=== PATIENT | female | born 1945 | race Caucasian/White ===

== ENCOUNTER 2018-08-14 06:59 | Observation (INO) ==
[2018-08-14] MEDS ORDERED: methylPREDNISolone 125 MG/2 ML VIAL IVP ONE (07:34)
[2018-08-14] MEDS ORDERED: Ipratropium/Albuterol Neb 3 ML IH ONE ×2 (07:34→08:00)
[2018-08-14 07:36] LABS: Basophils # 0.1 K/mcL (0.0-0.2); Eosinophils # 0.9 K/mcL (0.0-0.6); Eosinophils % 7.4 %; Hematocrit 42.6 % (35.3-44.9); Hemoglobin 14.6 g/dL (11.5-15.4); Immature Granulocytes % 0.3 % (0-4); Lymphocytes # 1.8 K/mcL (0.6-4.6); Lymphocytes % 15.8 %; Mean Corpuscular HGB Conc 34.3 g/dL (31.6-35.5); Mean Corpuscular Hemoglobin 31.9 pg (28.0-33.3); Mean Corpuscular Volume 93.2 fL (83.0-100.0); Mean Platelet Volume 9.1 fL (9.4-12.4); Monocytes # 0.7 K/mcL (0.0-1.3); Monocytes % 5.7 %; Platelet Count 332 K/mcL (140-400); Red Blood Count 4.57 M/mcL (3.82-4.97); Red Cell Distribution Width 12.7 % (11.5-14.5); Segmented Neutrophils % 69.8 %
--- NOTE | 2018-08-14 07:46 | Emergency Department Note ---
Disposition Clinical Impression: Acute exacerbation of chronic obstructive airways disease Disposition: Admitted As Inpatient Condition: Fair Referrals: Yahaira Hare CNP [Primary Care Provider] - Forms: ED Satisfaction Letter SOB HPI - General Chief Complaint: ED Shortness of Breath/Dyspnea Stated Complaint: sob Time Seen by Provider: 08/14/18 07:23 Source: patient Limitations: no limitations Nursing Notes Reviewed: Yes Vital Signs Reviewed: Yes - History of Present Illness woman with a history of COPD and continued cigarette smoking with SOB for a week worse since last night. she says that she was given an antibiotic and prednisone last week for a cough but was not very SOB at that time. no pedal edema or chest pain. uses inhalers but does not have oxygen or nebs at home. no fever but has felt chills. No chest pain or calf pain or swelling. cough has been non productive, no hemoptysis. she finished the prednisone a few days ago. Pt Subjective Complaint: shortness of breath Onset (ago): day(s) (2) Severity: moderate Consistency/Duration: constant Known history of: COPD Treatment prior to arrival: bronchodilator - Related Data Home Medications Medication Instructions Recorded Confirmed Aspirin 81 mg PO DAILY 11/17/15 08/14/18 Lisinopril [Zestril] 20 mg PO DAILY 11/17/15 08/14/18 Allergies Allergy/AdvReac Type Severity Reaction Status Date / Time No Known Allergies Allergy Verified 08/14/18 07:19 All systems ED: reviewed and negative except as stated. Past Medical History - Past Medical History Medical history: Reports: COPD, hypertension Psychiatric history: Reports: anxiety [employer] history: Reports: no [employer] history - Social History Smoking Status: Current every day smoker Smokeless Tobacco Status: No Alcohol use: Reports: none Drug use: Reports: none Physical Exam - General Limitations: no limitations General appearance: alert, in no apparent distress - Head Head exam: atraumatic, normocephalic - Eye Eye exam: Present: normal appearance, PERRL, EOMI - ENT ENT exam: normal exam, normal oropharynx, mucous membranes moist - Neck Neck exam: Present: normal inspection, full ROM. Absent: lymphadenopathy - Chest Chest inspection: Present: normal inspection, symmetric chest wall rise - Respiratory Respiratory exam: Present: wheezes, other (diminished breath sounds bilaterally with expiratory prolongation and bilateral wheezes) - Cardiovascular Cardiovascular exam: Present: regular rate, normal heart sounds - Abdominal Exam Abdominal exam: Present: soft, Non-Tender, normal bowel sounds - Extremities Exam Extremities exam: Present: normal inspection, full ROM, normal capillary refill. Absent: tenderness, pedal edema, calf tenderness - Expanded Lower Extremity Exam Neurovascular/Tendon exam: Present: normal capillary refill. Absent: pulse deficit - Back Exam Back exam: Present: normal inspection, full ROM - Neurological Exam Neurological exam: Present: alert, oriented X3 - Psychiatric Psychiatric exam: Present: normal affect, normal mood - Skin Skin exam: Present: warm, dry, normal color Course - Reevaluation(s) Reevaluation #1: has not gotten a lot better after 2 nebs and solu-medrol. she agrees to stay in the hospital. I discussed with Dr. Casas who accepts. Vital Signs Temperature 97.2 F L 08/14/18 07:12 Pulse Rate 88 08/14/18 07:12 Respiratory Rate 18 08/14/18 07:12 Blood Pressure 159/96 08/14/18 07:12 O2 Sat by Pulse Oximetry 93 08/14/18 07:12 Temperature 97.2 F L 08/14/18 07:12 Pulse Rate 88 08/14/18 07:12 Respiratory Rate 18 08/14/18 07:12 Blood Pressure 159/96 08/14/18 07:12 O2 Sat by Pulse Oximetry 93 08/14/18 07:12 Oxygen Delivery Oxygen Delivery Room Air Shortness of Breath/Dyspnea - Differential Diagnosis Likely: acute exacerbation of chronic obstructive airways disease, congestive heart failure, pneumonia, pulmonary embolism - Medical Records Medical records reviewed: Yes I reviewed the patient's medical records. - Lab Data Lab results reviewed: Yes I reviewed the patient's lab results. Result diagrams: 08/14/18 07:30 Lab Results 08/14/18 Range/Units 07:30 WBC 11.5 H (4.3-11.1) K/mcL RBC 4.57 (3.82-4.97) M/mcL Hgb 14.6 (11.5-15.4) g/dL Hct 42.6 (35.3-44.9) % MCV 93.2 (83.0-100.0) fL MCH 31.9 (28.0-33.3) pg MCHC 34.3 (31.6-35.5) g/dL RDW 12.7 (11.5-14.5) % Plt Count 332 (140-400) K/mcL MPV 9.1 L (9.4-12.4) fL Immature Gran % 0.3 (0-4) % Seg Neutrophils % 69.8 % Lymphocytes % 15.8 % Monocytes % 5.7 % Eosinophils % 7.4 % Basophils % 1.0 % Neutrophils # 8.0 (1.6-8.9) K/mcL Lymphocytes # 1.8 (0.6-4.6) K/mcL Monocytes # 0.7 (0.0-1.3) K/mcL Eosinophils # 0.9 H (0.0-0.6) K/mcL Basophils # 0.1 (0.0-0.2) K/mcL - Radiology Data Radiology results reviewed: Yes I reviewed the patient's radiology results. - EKG Data EKG attestation: Yes I reviewed and interpreted this EKG. EKG shows normal: Reports: sinus rhythm Rate: Reports: normal (90) Rhythm: Reports: NSR [place]/QRS: Reports: normal When compared to previous EKG there are: previous EKG unavailable Interpretation: Reports: no acute changes, normal EKG
[2018-08-14 07:54] LABS: BUN/Creatinine Ratio 14 (6-26); Blood Urea Nitrogen 8 mg/dL (8-23); Calcium 10.2 mg/dL (8.6-10.3); Carbon Dioxide 26 mEq/L (23-29); Chloride 99 mEq/L (98-107); Glucose 119 mg/dL (70-105); Osmolality,Calculated 275 (280-300); Sodium 133 mEq/L (136-145); eGFR For Non-African Americans > 60 (> 60)
[2018-08-14 07:56] LABS: Troponin I < 0.03 ng/mL (< 0.04)
[2018-08-14] MEDS ORDERED: Ibuprofen 600 MG TABLET PO ONE (08:01)
[2018-08-14] MEDS ORDERED: Ipratropium/Albuterol Neb 3 ML ONE (08:02)
[2018-08-14] MEDS ORDERED: MethylPREDNISolone 40 MG/ML VIAL IVP SCH (08:45)
[2018-08-14] MEDS ORDERED: *HR* LORazepam 1 MG TABLET PO ONE (08:56)
[2018-08-14] MEDS ORDERED: Ipratropium/Albuterol Neb 3 ML IH SCH ×2 (09:00→11:00)
[2018-08-14] MEDS ORDERED: Naloxone 0.4 MG/ML INJ IVP PRN (09:50)
[2018-08-14] MEDS ORDERED: Ibuprofen 400 MG TABLET PO PRN (09:50)
--- NOTE | 2018-08-14 11:22 | Internal Med History&Physical ---
Date of Encounter: 08/14/18 Time of Encounter: 10:02 Assessment and Plan (1) Acute exacerbation of chronic obstructive airways disease Current visit: Yes Status: Acute Continue antibiotic and steroids. Continue inhaled meds and oxygen per nasal cannula as needed. Will monitor. Maintaining oxygen levels 96% at 2 L per nasal cannula. (2) Hypertension Current visit: Yes Status: Acute Controlled with current medication. Monitor blood pressure. Qualifiers: Hypertension type: essential hypertension Qualified Code(s): I10 - E ssential (primary) hypertension Internal Medicine - H&P: HPI Admitted From: Emergency Dept Plans for Post Hospital Care: Home History of present illness: Ms. Blakely is a 73 year old female admitted to inpatient from the emergency room after presenting for a one-week history of shortness of breath. Was treated a week prior for possible pneumonia. Had antibiotics and prednisone which she completed the course. Kimberly better for a couple days. Then based skin to feel increased shortness of breath again. Patient is a current smoker and history of COPD exacerbation and hypertension. Patient denies fever but states she has chills occasionally. Denies nausea vomiting diarrhea or chest pain. Maintaini ng oxygen level at 96% on 2 L of oxygen. Does not wear oxygen at home. Does not have nebulizers at home but has inhalers. Past Med Surg Social Fam HX - Past Medical History Medical history: COPD, hypertension Psychiatric history: anxiety - Social History Smoking Status: Current every day smoker Smokeless Tobacco Status: No Alcohol use: none Drug use: none Internal Medicine - H&P: Meds Aspirin 81 mg PO DAILY 11/17/15 [History] Lisinopril [Zestril] 20 mg PO DAILY 11/17/15 [History] Allergy/AdvReac Type Severity Reaction Status Date / Time No Known Allergies Allergy Verified 08/14/18 07:19 All Systems PM: A 10-system review of systems was performed and is negative for pertinent fi ndings except as documented above in the HPI. - Constitutional Constitutional: no chills, no fever(s), no night sweats - EENT Eyes: no change in vision, no discharge, no pain, no photophobia Ears: no ear discharge, no ear pain, no tinnitus Nose, mouth and throat: no dysphagia, no nasal discharge, no neck pain, no sore throat - Cardiovascular Cardiovascular ROS IM: no chest pain, no diaphoresis, no dyspnea, no lightheadedness, no palpitations, no syncope - Respiratory Respiratory: no cough, no dyspnea, no wheezing, no excessive phlegm production - Gastrointestinal Gastrointestinal: no abdominal pain, no diarrhea, no hematemesis, no hematochezia, no melena, no nausea, no vomiting - Genitourinary Genitourinary: no change in urinary stream, no dysuria, no flank pain, no hematuria - Musculoskeletal Musculoskeletal ROS IM: no numbness, no tingling - Integumentary Integumentary IM: no rash, no unusual bruising - Neurological Neurological ROS: no confusion, no convulsions, no focal weakness, no numbness, no tingling, no tremor(s) - Hematologic/Lymphatic Hematologic/Lymphatic: no easy bruising - Constitutional Vitals: Temp Pulse Resp BP Pulse Ox 97.2 F L 88 16 155/86 93 08/14/18 07:12 08/14/18 07:12 08/14/18 09:32 08/14/18 09:32 08/14/18 07:12 General appearance: Present: cooperative, A&O X 3, pleasant, no acute distress, answers questions appropriately - Head Head exam: Present: atraumatic, normocephalic - Eye Eye exam: Present: PERRL, conjuntiva pink, sclera anicteric Pupils: Present: PERRL - Neck Neck exam general surgery: Present: supple, trachea midline. Absent: lymphadenopathy - Respiratory Respiratory exam: Present: CTAB. Absent: accessory muscle use, rales, rhonchi, wheezes Additional comments: Scattered rhonchi and wheezes throughout. - Cardiovascular Cardiovascular exam: Present: RRR, +S1, +S2. Absent: diastolic murmur, gallop, rubs, systolic murmur - GI/Abdominal GI/Abdominal exam: Present: normal bowel sounds, soft, no peritoneal signs. Absent: distended, tenderness - Extremities Exam Extremities exam: Present: warm, radial pulses palpable and symmetrical. Absent: calf tenderness, cyanotic, pedal edema - Neurological Exam Neurological exam: Present: CN II-XII intact, oriented X3, no focal deficits. Absent: pronater drift, facial droop, speech deficit - Skin Skin exam: Present: dry, intact Internal Med - H&P Results - Labs CBC & Chem 7: 08/14/18 07:30 08/14/18 07:30 Labs: Short CBC 08/14/18 Range/Units 07:30 WBC 11.5 H (4.3-11.1) K/mcL Hgb 14.6 (11.5-15.4) g/dL Hct 42.6 (35.3-44.9) % Plt Count 332 (140-400) K/mcL Neutrophils # 8.0 (1.6-8.9) K/mcL BMP 08/14/18 07:30 Sodium 133 L Potassium 4.0 Chloride 99 Carbon Dioxide 26 BUN 8 Creatinine 0.58 L Glucose 119 H Calcium 10.2 Cardiac Enzymes 08/14/18 Range/Units 07:30 Troponin I < 0.03 (< 0.04) ng/mL - Impressions ITS Impressions Chest X-Ray 08/14/18 07:20 IMPRESSION: COPD with no acute pneumonia. D/ / 08/14/2018 09:04:22 Ha Phillips MD / Esmer [place] Interpreting Provider: Ha Phillips MD
[2018-08-14] MEDS: traMADol 50 MG TABLET PO PRN ×2 (11:29→21:07)
[2018-08-14] MEDS: Aspirin 81 MG TAB.CHEW PO SCH (11:29)
[2018-08-14] MEDS: Lisinopril 20 MG TABLET PO SCH (11:30)
[2018-08-14] MEDS: cefTRIAXone 1,000 MG in Water for inj. (sterile) 20 ML 10 ML IVP SCH (11:30)
[2018-08-14] MEDS: Ipratropium/Albuterol Neb 3 ML IH SCH ×3 (13:35→21:06)
[2018-08-14] MEDS: MethylPREDNISolone 40 MG/ML VIAL IVP SCH ×2 (15:22→21:07)
[2018-08-14] MEDS: Gabapentin 300 MG CAPSULE PO SCH (21:08)
[2018-08-14] MEDS: Melatonin 3 MG TABLET PO PRN (21:08)
[2018-08-15] MEDS: Ipratropium/Albuterol Neb 3 ML IH SCH ×6 (00:17→21:52)
[2018-08-15] MEDS: MethylPREDNISolone 40 MG/ML VIAL IVP SCH ×4 (02:48→21:52)
[2018-08-15] MEDS: *HR* Enoxaparin 40 MG/0.4 ML SYRINGE SQ SCH (05:46)
[2018-08-15 05:55] LABS: Hematocrit 36.9 % (35.3-44.9); Mean Corpuscular HGB Conc 34.4 g/dL (31.6-35.5); Mean Corpuscular Hemoglobin 32.2 pg (28.0-33.3); Mean Corpuscular Volume 93.4 fL (83.0-100.0); Mean Platelet Volume 9.3 fL (9.4-12.4); Platelet Count 299 K/mcL (140-400); Red Blood Count 3.95 M/mcL (3.82-4.97); Red Cell Distribution Width 12.8 % (11.5-14.5)
[2018-08-15 06:48] LABS: BUN/Creatinine Ratio 15 (6-26); Blood Urea Nitrogen 9 mg/dL (8-23); Calcium 10.1 mg/dL (8.6-10.3); Carbon Dioxide 25 mEq/L (23-29); Chloride 97 mEq/L (98-107); Glucose 212 mg/dL (70-105); Osmolality,Calculated 275 (280-300); Sodium 130 mEq/L (136-145); eGFR For Non-African Americans > 60 (> 60)
[2018-08-15 06:51] LABS: Hemoglobin 12.7 g/dL (11.5-15.4)
[2018-08-15] MEDS: cefTRIAXone 1,000 MG in Water for inj. (sterile) 20 ML 10 ML IVP SCH (09:50)
[2018-08-15] MEDS: Lisinopril 20 MG TABLET PO SCH (09:51)
[2018-08-15] MEDS: traMADol 50 MG TABLET PO PRN ×2 (09:51→21:40)
[2018-08-15] MEDS: Aspirin 81 MG TAB.CHEW PO SCH (09:51)
[2018-08-15] MEDS: Gabapentin 300 MG CAPSULE PO SCH ×3 (09:51→21:40)
--- NOTE | 2018-08-15 10:15 | Internal Med Progress Note ---
Addendum entered and electronically signed by Freedom Casas DO 08/15/18 11:36: I have personally performed a face to face evaluation on this patient. I have reviewed and agree with the care plan. History and Exam by me shows: Original Note: Date of Encounter: 08/15/18 Time of Encounter: 10:22 - Assessment and plan (1) Acute exacerbation of chronic obstructive airways disease Current Visit: Yes Status: Acute Assessment and plan: Patient admitted with exacerbation of COPD. Patient currently states that her breathing effort has improved overnight after a series of nebulizer treatments and being started on cortical steroids. Patient currently receiving Rocephin. Currently remains afebrile with no productive cough. Patient states that she does have phlegm that she has difficulty moving and will be started on Mucinex. Chest x-ray on admission showed no infectious process. Noted continue slight wheeze to upper oneil. Patient denies any dyspnea with minimal exertion while ambulating in room. Patient states she continues to smoke at home in response to anxiety. Smoking cessation was discussed at length with patient relating difficulty maintaining her household due to poor support. We will discuss patient with Dr. Casas and with social service. Discuss changing patient's current cortical steroids and antibiotics to oral. Will start patient back on her albuterol rescue inhaler (2) Leukocytosis Current Visit: Yes Status: Acute Assessment and plan: Patient noted to have elevated WBC count to 22 after being started on cortical steroids and also noted slight increase in glucose. Afebrile and denies any fever or chills. Chest x-ray showed no infectious process. No productive cough noted. Leukocytosis likely secondary to cortical steroids and will continue with current plan of care. Patient currently on Rocephin Qualifiers: Leukocytosis type: unspecified Qualified Code(s): D72.829 - Elevated white blood cell count, unspecified (3) Hypertension Current Visit: Yes Status: Chronic Assessment and plan: Vital signs have been stable since she was then admitted. We will continue with current medications. Qualifiers: Hypertension type: essential hypertension Qualified Code(s): I10 - Essential (primary) hypertension - Time Spent With Patient less than 15 minutes - Subjective Interval history: Patient currently appears relaxed and states that her effort of breathing has improved greatly overnight. Patient was observed ambulating in room by staff. Denied any dyspnea on slight exertion. Patient requesting Mucinex, stating that she has had difficulty moving phlegm. Denies any fever or chills. Patient did relate issues at home stating she expresses increased anxiety due to difficulty maintaining her household. Patient with complaints of poor support from and states that she believes this increases her anxiety which leads to her need for smoking. Smoking cessation was discussed at length. - Constitutional Vitals: Temp Pulse Resp BP Pulse Ox 98.0 F 77 24 105/62 97 08/15/18 07:00 08/15/18 07:00 08/15/18 09:18 08/15/18 07:00 08/15/18 09:18 General appearance: Present: cooperative, A&O X 3, pleasant, no acute distress, answers questions appropriately - Head Head exam: Present: atraumatic, normocephalic - Eye Eye exam: Present: PERRL, conjuntiva pink, sclera anicteric Pupils: Present: PERRL - Neck Neck exam general surgery: Present: supple, trachea midline. Absent: lymphadenopathy - Respiratory Respiratory exam: Present: CTAB, wheezes. Absent: accessory muscle use, rales, rhonchi Additional comments: Patient with very slight expiratory wheeze heard to upper oneil. Patient with excellent aeration to bases at this time. Respiratory effort appears relaxed at 20/m. Noted scoliosis. - Cardiovascular Cardiovascular exam: Present: RRR, +S1, +S2. Absent: diastolic murmur, gallop, rubs, systolic murmur - GI/Abdominal GI/Abdominal exam: Present: normal bowel sounds, soft, no peritoneal signs. Absent: distended, tenderness - Extremities Exam Extremities exam: Present: warm, radial pulses palpable and symmetrical. Absent: calf tenderness, cyanotic, pedal edema - Neurological Exam Neurological exam: Present: CN II-XII intact, oriented X3, no focal deficits. Absent: pronater drift, facial droop, speech deficit - Skin Skin exam: Present: dry, intact Internal Medicine: Result - Labs CBC & Chem 7: 08/15/18 05:40 08/15/18 05:40 Labs: Short CBC 08/15/18 Range/Units 05:40 WBC 22.1 H D (4.3-11.1) K/mcL Hgb 12.7 D (11.5-15.4) g/dL Hct 36.9 (35.3-44.9) % Plt Count 299 (140-400) K/mcL BMP 08/15/18 05:40 Sodium 130 L Potassium 5.0 Chloride 97 L Carbon Dioxide 25 BUN 9 Creatinine 0.62 Glucose 212 H Calcium 10.1 Consult Discharge Plan - Plan Referrals: Yahaira Hare, ELENO [Primary Care Provider] -
[2018-08-15] MEDS ORDERED: Isovue-370 500 ML INFUS..BTL IV ONE (13:52)
[2018-08-15] MEDS ORDERED: ISOVUE-370 100 ML INFUS..BTL IVP ONE (14:35)
[2018-08-15] MEDS: Melatonin 3 MG TABLET PO PRN (21:40)
[2018-08-16] MEDS: Ipratropium/Albuterol Neb 3 ML IH SCH ×4 (03:04→11:56)
[2018-08-16] MEDS: MethylPREDNISolone 40 MG/ML VIAL IVP SCH ×2 (04:31→09:14)
[2018-08-16] MEDS: *HR* Enoxaparin 40 MG/0.4 ML SYRINGE SQ SCH (04:46)
[2018-08-16 07:28] VITALS: BP 129/65
[2018-08-16] MEDS: cefTRIAXone 1,000 MG in Water for inj. (sterile) 20 ML 10 ML IVP SCH (09:14)
[2018-08-16] MEDS: Aspirin 81 MG TAB.CHEW PO SCH (09:15)
[2018-08-16] MEDS: Lisinopril 20 MG TABLET PO SCH (09:15)
[2018-08-16] MEDS: Gabapentin 300 MG CAPSULE PO SCH (09:15)
[2018-08-16] MEDS: traMADol 50 MG TABLET PO PRN (09:47)
--- NOTE | 2018-08-16 10:55 | Discharge Summary ---
Date of Encounter: 08/16/18 Time of Encounter: 10:23 - Discharge Diagnosis (1) Acute exacerbation of chronic obstructive airways disease Priority: Primary Status: Acute Comments: Patient appears relaxed this morning and states that her breathing has greatly improved since her admission. Patient's initial chest x-ray showed no acute chest process. Patient had a CAT scan of the chest performed which showed possible acute bronchiolitis but otherwise was nonacute. Patient had PFTs that were performed with results pending. Patient has continued on Rocephin which will be converted to Levaquin orally for 7 days. Patient continues on Solu- Medrol which will be converted to oral prednisone for 5 days. Patient is being discharged home with recommendations to follow-up with PCP in one week. (2) Leukocytosis Priority: Secondary Status: Acute Comments: Patient had elevated WBC count to 22 after starting on cortical steroids. Patient has remained afebrile. CT scan shows possible mild bronchiolitis. Patient continues on antibiotics. We will continue to follow up with PCP. Qualifiers: Leukocytosis type: unspecified Qualified Code(s): D72.829 - Elevated white blood cell count, unspecified (3) Hypertension Priority: Secondary Status: Chronic Comments: Vital signs remained stable during her stay at this facility. Patient is continue on current home medications and follow-up with PCP Qualifiers: Hypertension type: essential hypertension Qualified Code(s): I10 - Essential (primary) hypertension Hospital course: Ms. Blakely is a 73 year old female who was admitted to the emergency department 2 days ago with exacerbation of COPD. Patient complained of dyspnea with minimal productive cough. Patient was afebrile. Patient was admitted to this facility and received bronchodilators, antibiotics and corticosteroids. Patient showed a improvement over the next 24-48 hours, stating that her dyspnea had resolved. Remained afebrile with no productive cough. Patient was observed ambulating in halls without assistance. Patient had CAT scan with the following results: CT/CT chest w con IMPRESSION: Mid and lower lung predominant tree-in-bud opacities with small airway mucoid impaction is most suspicious for (chronic recurrent) aspiration sequela given tracheobronchial secretions and prior comparison exam findings. No consolidative airspace disease. Mild upper lung predominant centrilobular ground-glass nodularity is suspicious for respiratory bronchiolitis in a smoker. Patient also had a PFT with current results pending. Patient had stated no establishment with [facility] and has a PCP who manages her medications. Patient will be discharged with oral Levaquin for 7 days and prednisone for 5 days. Remains afebrile on day of discharge. Patient instructed to follow-up with PCP in 7 days. Patient given instructions on smoking cessation Discharge discussed with: patient Time spent discussing smoking cessation with patient: 3 to 10 minutes - Time Spent with Patient Total time spent providing and/or coordinating discharge services: Less than 30 minutes - Discharge Medications Home Medications: Aspirin 81 mg PO DAILY 11/17/15 [History] Lisinopril [Zestril] 20 mg PO DAILY 11/17/15 [History] Allergies/Adverse Reactions: Allergy/AdvReac Type Severity Reaction Status Date / Time pregabalin [From Lyrica] Allergy Intermediate Swelling Verified 08/15/18 14:27 of Lip/Tongue/Throat Date of admission: 08/14/18 09:25 Primary care physician: VANITA Bolaños Discharging clinician: Jose Myers - Constitutional Vitals: Temp Pulse Resp BP Pulse Ox 98.7 F 67 18 129/65 94 08/16/18 07:27 08/16/18 07:27 08/16/18 07:27 08/16/18 07:27 08/16/18 07:27 General appearance: Present: cooperative, A&O X 3, pleasant, no acute distress, answers questions appropriately - Head Head exam: Present: atraumatic, normocephalic - Eye Eye exam: Present: PERRL, conjuntiva pink, sclera anicteric Pupils: Present: PERRL - Neck Neck exam general surgery: Present: supple, trachea midline. Absent: lymphadenopathy - Respiratory Respiratory exam: Present: CTAB, wheezes. Absent: accessory muscle use, rales, rhonchi Additional comments: Patient with slight expiratory wheeze for 2 upper oneil but otherwise clear to auscultation. History effort appears relaxed at 20. No productive cough noted. Oximetry is greater than 90% on room air - Cardiovascular Cardiovascular exam: Present: RRR, +S1, +S2. Absent: diastolic murmur, gallop, rubs, systolic murmur - GI/Abdominal GI/Abdominal exam: Present: normal bowel sounds, soft, no peritoneal signs. Absent: distended, tenderness - Extremities Exam Extremities exam: Present: warm, radial pulses palpable and symmetrical. Absent: calf tenderness, cyanotic, pedal edema - Neurological Exam Neurological exam: Present: CN II-XII intact, oriented X3, no focal deficits. Absent: pronater drift, facial droop, speech deficit - Skin Skin exam: Present: dry, intact - Patient Status Disposition: Home, Self-Care Condition: Fair Functional capacity at discharge: independent ambulation Overall status at discharge: patient is progressing back to baseline - Discharge Instructions Follow Up With: Yahaira Hare MEDICAL CASE WORKER [Primary Care Provider] - - Diet and Activity Activity: increase activity as tolerated Diet: advance to your usual diet, low salt diet
[2018-08-16 11:23] LABS: Hematocrit 38.1 % (35.3-44.9); Mean Corpuscular HGB Conc 34.1 g/dL (31.6-35.5); Mean Corpuscular Volume 93.8 fL (83.0-100.0); Mean Platelet Volume 9.6 fL (9.4-12.4); Platelet Count 317 K/mcL (140-400); Red Blood Count 4.06 M/mcL (3.82-4.97); Red Cell Distribution Width 13.2 % (11.5-14.5)
--- NOTE | 2018-08-16 14:18 | Internal Med Progress Note ---
Date of Encounter: 08/16/18 Time of Encounter: 14:13 - Assessment and plan (1) Acute exacerbation of chronic obstructive airways disease Current Visit: Yes Status: Acute Assessment and plan: she has improved considerable and is almost back to her normal self . Advised strongly to quit tobacco use nicotine gum .PFT mild to moderate COPD discussed with her in detail also quick sergei noted her Blood sugars were also some what high which can get worse she si not on any diabetic medications (2) Hypertension Current Visit: Yes Status: Chronic Assessment and plan: stable no new change Qualifiers: Hypertension type: essential hypertension Qualified Code(s): I10 - Essential (primary) hypertension (3) Leukocytosis Current Visit: Yes Status: Acute Assessment and plan: WBC noted to be high she is steroid . Afebrile most likely due to steroid as she is clinically doing well. Followup CBC as out patient if needed Qualifiers: Leukocytosis type: unspecified - Subjective Interval history: Cross coverage . pt seems to be doing much better when she was admitted . She is able to walk without getting SOB no fever or chill no cough tolerated treatment and medications well . - Constitutional Vitals: Temp Pulse Resp BP Pulse Ox 98.7 F 67 19 129/65 99 08/16/18 07:27 08/16/18 07:27 08/16/18 12:00 08/16/18 07:27 08/16/18 12:00 General appearance: Present: cooperative, A&O X 3, pleasant, no acute distress, answers questions appropriately - Head Head exam: Present: atraumatic - Eye Eye exam: Present: EOMI, PERRL - Neck Neck exam general surgery: Present: full ROM, supple. Absent: tenderness, nu chal rigidity - Respiratory Respiratory exam: Present: decreased breath sounds, prolonged expiratory phase. Absent: respiratory distress, stridor, tachypnea Additional comments: some what prolong expiration back both sides no clear wheeze noted no rales - Cardiovascular Cardiovascular exam: Present: RRR, +S1, +S2. Absent: irregular rhythm, JVD, systolic murmur, tachycardia - GI/Abdominal GI/Abdominal exam: Present: normal bowel sounds, soft. Absent: distended, firm, rigid - Extremities Exam Extremities exam: Absent: pedal edema, tenderness, warm - Neurological Exam Neurological exam: Present: CN II-XII intact, normal gait, oriented X3, no focal deficits, strengths equal and symetr throughout. Absent: facial droop, speech deficit Internal Medicine: Result - Labs CBC & Chem 7: 08/16/18 11:00 08/15/18 05:40 Labs: Short CBC 08/16/18 Range/Units 11:00 WBC 25.7 H (4.3-11.1) K/mcL Hgb 13.0 (11.5-15.4) g/dL Hct 38.1 (35.3-44.9) % Plt Count 317 (140-400) K/mcL - Impressions Impressions Chest CT 08/15/18 13:52 IMPRESSION: Mid and lower lung predominant tree-in-bud opacities with small airway mucoid impaction is most suspicious for (chronic recurrent) aspiration sequela given tracheobronchial secretions and prior comparison exam findings. No consolidative airspace disease. Mild upper lung predominant centrilobular ground-glass nodularity is suspicious for respiratory bronchiolitis in a smoker. Thoracolumbar spondylosis. D/ / Anjel De La Rosa / Anjel De La Rosa Interpreting Provider: Anjel De La Rosa Consult Discharge Plan - Plan Referrals: Yahaira Hare CNP [Primary Care Provider] - Prescriptions: levoFLOXacin [Levaquin] 750 mg PO DAILY #7 tablet PredniSONE [Deltasone] 30 mg PO DAILY 5 Days #5 tablet
[2018-08-17] MEDS ORDERED: levoFLOXacin 750 MG TABLET PO SCH (09:00)
[2018-08-17] MEDS ORDERED: predniSONE 10 MG TABLET PO SCH (09:00)
--- NOTE | 2018-08-18 19:17 | Electrocardiograph Report ---
[address] [address] Test Date: 2018-08-14 Pat Name: Emilee Blakely Department: 2000 Room: 117 Gender: F Chief Of Anesthesiology: : 1945 Requested By: Ezra Dugan Order Number: [id number] Reading MD: Natividad Sharma Measurements Intervals [place] Rate: 90 P: 79 TN: 170 QRS: 46 QRSD: 82 T: 76 QT: 362 QTc: 409 Interpretive Statements SINUS RHYTHM POSSIBLE RIGHT VENTRICULAR CONDUCTION DELAY MODERATE ST DEPRESSION Electronically Signed On 08-18-2018 19:15:52 EDT by Natividad Sharma
== END 2018-08-16 14:18 | disposition home or self-care (01) ==
LOC: EMEROOGRE 06:59 → INPGRE 06:59
PROVIDERS: ADMIT Internal Medicine; ATTEND Internal Medicine

== ENCOUNTER 2019-05-20 10:08 | Inpatient (IN) ==
[2019-05-20] MEDS ORDERED: Ipratropium/Albuterol Neb 3 ML ONE ×6 (10:11→13:29)
[2019-05-20] MEDS ORDERED: 0.9 % Sodium Chloride 1,000 ML IVC ONE (10:18)
[2019-05-20] MEDS ORDERED: Ipratropium/Albuterol Neb 3 ML IH ONE ×2 (10:18→11:45)
[2019-05-20 10:47] LABS: Basophils # 0.1 K/mcL (0.0-0.2); Basophils % 0.9 %; Eosinophils # 1.1 K/mcL (0.0-0.6); Hematocrit 43.7 % (35.3-44.9); Hemoglobin 14.5 g/dL (11.5-15.4); Immature Granulocytes % 0.3 % (0-4); Lymphocytes # 2.1 K/mcL (0.6-4.6); Lymphocytes % 14.9 %; Mean Corpuscular HGB Conc 33.2 g/dL (31.6-35.5); Mean Corpuscular Hemoglobin 31.2 pg (28.0-33.3); Mean Platelet Volume 9.5 fL (9.4-12.4); Monocytes # 0.9 K/mcL (0.0-1.3); Monocytes % 6.3 %; Neutrophils # 9.9 K/mcL (1.6-8.9); Platelet Count 369 K/mcL (140-400); Red Blood Count 4.65 M/mcL (3.82-4.97); Red Cell Distribution Width 13.1 % (11.5-14.5); Segmented Neutrophils % 69.6 %; White Blood Count 14.2 K/mcL (4.3-11.1)
[2019-05-20 10:57] LABS: Alanine Aminotransferase 11 Units/L (7-52); Albumin 4.3 g/dL (3.5-5.7); Albumin/Globulin Ratio 1.3 (1.1-2.2); Alkaline Phosphatase 102 Units/L (34-104); Aspartate Amino Transferase 16 Units/L (13-39); BUN/Creatinine Ratio 13 (6-26); Bilirubin,Direct 0.1 mg/dL (0.0-0.2); Bilirubin,Indirect 0.4 mg/dL (0.0-1.2); Bilirubin,Total 0.5 mg/dL (0.3-1.0); Blood Urea Nitrogen 9 mg/dL (8-23); Carbon Dioxide 30 mEq/L (23-29); Chloride 98 mEq/L (98-107); Globulin 3.3 g/dL (2.4-3.5); Glucose 115 mg/dL (70-105); Osmolality,Calculated 276 (280-300); Potassium 4.4 mEq/L (3.5-5.1); Sodium 133 mEq/L (136-145); Total Protein 7.6 g/dL (6.4-8.9); eGFR For African Americans > 60 (> 60); eGFR For Non-African Americans > 60 (> 60)
[2019-05-20 11:01] LABS: Troponin I 0.03 ng/mL (< 0.04)
[2019-05-20] MEDS ORDERED: methylPREDNISolone 125 MG/2 ML VIAL IVP ONE (12:16)
--- NOTE | 2019-05-20 12:22 | Emergency Department Note ---
Disposition Clinical Impression: Acute exacerbation of chronic obstructive airways disease Disposition: Admitted As Inpatient Condition: Good Referrals: Yahaira Hare CNP [Primary Care Provider] - Time of Disposition: 12:35 SOB HPI - General Chief Complaint: ED Shortness of Breath/Dyspnea Stated Complaint: trouble breathing Time Seen by Provider: 05/20/19 10:12 Source: patient Mode of arrival: ambulatory Limitations: no limitations Nursing Notes Reviewed: Yes Vital Signs Reviewed: Yes - History of Present Illness has had increased SOB since Monday. has felt weak with poor appetite, no food for 2 days she says, and mostly nonproductive cough. no fever. mild pedal edema and has had to sit up in bed or in a chair for last 2 nights. no hemoptysis. no chest pain but has had some tightness. is a smoker but no cigarettes in 3 days. has been wheezing. uses albuterol nebs at home 3 or so times a day, has used 2 already this morning. does not have oxygen at home Pt Subjective Complaint: shortness of breath Onset (ago): day(s) (4) Severity: moderate Consistency/Duration: constant Improves with: nothing Worsens with: exertion Known history of: COPD Treatment prior to arrival: bronchodilator - Related Data Home Medications Medication Instructions Recorded Confirmed Aspirin 81 mg PO DAILY 11/17/15 05/20/19 Lisinopril [Zestril] 20 mg PO DAILY 11/17/15 05/20/19 Albuterol Neb [Proventil Neb] 2.5 mg IH Q4HR PRN 03/22/19 05/20/19 Albuterol Sulfate [Ventolin Hfa] 2 puff IH Q4H PRN 03/22/19 05/20/19 Allergies Allergy/AdvReac Type Severity Reaction Status Date / Time pregabalin [From Lyrica] Allergy Intermediate Swelling Verified 03/22/19 22:26 of Lip/Tongue/Throat Constitutional: Reports: weakness. Denies: fever, chills Eyes: Denies: eye pain, eye discharge, vision change ENT ED: Denies: ear pain, throat pain, dental pain Cardiovascular: Reports: dyspnea on exertion, orthopnea, edema. Denies: chest pain, palpitations Respiratory: Reports: cough, dyspnea, wheezes. Denies: hemoptysis, sputum production Gastrointestinal: Denies: abdominal pain, nausea, vomiting Genitourinary: Denies: urgency, dysuria, frequency Musculoskeletal: Denies: back pain, neck pain Integumentary: Denies: rash, abrasion Neurological: Reports: weakness. Denies: headache, numbness Psychiatric: Reports: anxiety. Denies: depression Endocrine: Denies: fatigue, heat or cold intolerance Hematological/Lymphatic: Denies: easy bleeding, easy bruising Allergic/Immunologic: Denies: facial swelling, urticaria Past Medical History - Past Medical History Medical history: Reports: COPD, hypertension Surgical history: Reports: no surgical history Psychiatric history: Reports: anxiety CRAB STEAMER history: Reports: no CRAB STEAMER history - Social History Smoking Status: Current every day smoker Smokeless Tobacco Status: No Alcohol use: Reports: none Drug use: Reports: none Physical Exam - General Limitations: no limitations General appearance: alert, in distress, other (short of breath, talks in short sentences, audible wheezes) - Head Head exam: atraumatic, normocephalic - Eye Eye exam: Present: normal appearance, PERRL, EOMI - ENT ENT exam: normal exam, normal oropharynx, mucous membranes moist - Neck Neck exam: Present: normal inspection, full ROM, other (no JVD) - Chest Chest inspection: Present: normal inspection, symmetric chest wall rise - Respiratory Respiratory exam: Present: wheezes, prolonged expiratory phase - Cardiovascular Cardiovascular exam: Present: regular rate, normal rhythm, normal heart sounds - Abdominal Exam Abdominal exam: Present: soft, Non-Tender, normal bowel sounds - Extremities Exam Extremities exam: Present: normal inspection, pedal edema (trace to 1+ edema bilaterally). Absent: tenderness, calf tenderness - Expanded Lower Extremity Exam Gait: observed and normal - Back Exam Back exam: Present: normal inspection, full ROM - Neurological Exam Neurological exam: Present: alert, oriented X3 - Psychiatric Psychiatric exam: Present: normal affect, normal mood - Skin Skin exam: Present: warm, dry, normal color Course - Reevaluation(s) Reevaluation #1: 1225: improved greatly after initial nebs but up to bathroom andwas quite SOBand wheezy again, better wiht oxygen and neb now. havediscussed with Dr. Mcgee who is seeing the patient in the ED Vital Signs Temperature 98.5 F 05/20/19 10:17 Pulse Rate 80 05/20/19 10:17 Respiratory Rate 22 07/29/19 10:17 Blood Pressure 159/81 05/20/19 10:17 O2 Sat by Pulse Oximetry 89 05/20/19 10:17 Temperature 98.5 F 05/20/19 10:17 Pulse Rate 84 05/20/19 12:12 Respiratory Rate 21 05/20/19 12:12 Blood Pressure 140/76 05/20/19 11:22 O2 Sat by Pulse Oximetry 95 05/20/19 12:12 Oxygen Delivery Oxygen Delivery Nasal Cannula Shortness of Breath/Dyspnea - Differential Diagnosis Likely: acute exacerbation of chronic obstructive airways disease, congestive heart failure, pneumonia, pulmonary embolism, pneumothorax - Medical Records Medical records reviewed: Yes I reviewed the patient's medical records. - Lab Data Lab results reviewed: Yes I reviewed the patient's lab results. Result diagrams: 05/20/19 10:18 05/20/19 10:18 Lab Results 05/20/19 05/20/19 05/20/19 Range/Units 10:18 10:18 10:18 WBC 14.2 H (4.3-11.1) K/mcL RBC 4.65 (3.82-4.97) M/mcL Hgb 14.5 (11.5-15.4) g/dL Hct 43.7 (35.3-44.9) % MCV 94.0 (83.0-100.0) fL MCH 31.2 (28.0-33.3) pg MCHC 33.2 (31.6-35.5) g/dL RDW 13.1 (11.5-14.5) % Plt Count 369 (140-400) K/mcL MPV 9.5 (9.4-12.4) fL Immature Gran % 0.3 (0-4) % Seg Neutrophils % 69.6 % Lymphocytes % 14.9 % Monocytes % 6.3 % Eosinophils % 8.0 % Basophils % 0.9 % Neutrophils # 9.9 H (1.6-8.9) K/mcL Lymphocytes # 2.1 (0.6-4.6) K/mcL Monocytes # 0.9 (0.0-1.3) K/mcL Eosinophils # 1.1 H (0.0-0.6) K/mcL Basophils # 0.1 (0.0-0.2) K/mcL Sodium 133 L (136-145) mEq/L Potassium 4.4 (3.5-5.1) mEq/L Chloride 98 (98-107) mEq/L Carbon Dioxide 30 H (23-29) mEq/L BUN 9 (8-23) mg/dL Creatinine 0.71 (0.60-1.20) mg/dL Est GFR ( Amer) > 60 (> 60) Est GFR (Non-Af Amer) > 60 (> 60) BUN/Creatinine Ratio 13 (6-26) Glucose 115 H (70-105) mg/dL Calculated Osmolality 276 L (280-300) Lactic Acid 1.5 (0.5-2.2) mmol/L Calcium 10.0 (8.6-10.3) mg/dL Total Bilirubin 0.5 (0.3-1.0) mg/dL Direct Bilirubin 0.1 (0.0-0.2) mg/dL Indirect Bilirubin 0.4 (0.0-1.2) mg/dL AST 16 (13-39) Units/L ALT 11 (7-52) Units/L Alkaline Phosphatase 102 (34-104) Units/L Troponin I 0.03 (< 0.04) ng/mL B-Natriuretic Peptide (Less than 100) pg/mL Serum Total Protein 7.6 (6.4-8.9) g/dL Albumin 4.3 (3.5-5.7) g/dL Globulin 3.3 (2.4-3.5) g/dL Albumin/Globulin Ratio 1.3 (1.1-2.2) 05/20/19 Range/Units 10:18 WBC (4.3-11.1) K/mcL RBC (3.82-4.97) M/mcL Hgb (11.5-15.4) g/dL Hct (35.3-44.9) % MCV (83.0-100.0) fL MCH (28.0-33.3) pg MCHC (31.6-35.5) g/dL RDW (11.5-14.5) % Plt Count (140-400) K/mcL MPV (9.4-12.4) fL Immature Gran % (0-4) % Seg Neutrophils % % Lymphocytes % % Monocytes % % Eosinophils % % Basophils % % Neutrophils # (1.6-8.9) K/mcL Lymphocytes # (0.6-4.6) K/mcL Monocytes # (0.0-1.3) K/mcL Eosinophils # (0.0-0.6) K/mcL Basophils # (0.0-0.2) K/mcL Sodium (136-145) mEq/L Potassium (3.5-5.1) mEq/L Chloride (98-107) mEq/L Carbon Dioxide (23-29) mEq/L BUN (8-23) mg/dL Creatinine (0.60-1.20) mg/dL Est GFR ( Amer) (> 60) Est GFR (Non-Af Amer) (> 60) BUN/Creatinine Ratio (6-26) Glucose (70-105) mg/dL Calculated Osmolality (280-300) Lactic Acid (0.5-2.2) mmol/L Calcium (8.6-10.3) mg/dL Total Bilirubin (0.3-1.0) mg/dL Direct Bilirubin (0.0-0.2) mg/dL Indirect Bilirubin (0.0-1.2) mg/dL AST (13-39) Units/L ALT (7-52) Units/L Alkaline Phosphatase (34-104) Units/L Troponin I (< 0.04) ng/mL B-Natriuretic Peptide 47 (Less than 100) pg/mL Serum Total Protein (6.4-8.9) g/dL Albumin (3.5-5.7) g/dL Globulin (2.4-3.5) g/dL Albumin/Globulin Ratio (1.1-2.2) - Radiology Data Radiology results reviewed: Yes I reviewed the patient's radiology results. - EKG Data EKG attestation: Yes I reviewed and interpreted this EKG. EKG results narrative: MSR 96/min, normal axis, normal intervals. normal ST and T waves, normal EKG
[2019-05-20] MEDS ORDERED: cefTRIAXone 1,000 MG in Water for inj. (sterile) 10 ML IVP ONE (12:36)
[2019-05-20] MEDS ORDERED: Azithromycin 500 MG in D5% in Water 250 ML IVPB ONE (12:58)
[2019-05-20] MEDS ORDERED: Naloxone 0.4 MG/ML INJ IVP PRN (13:29)
[2019-05-20] MEDS ORDERED: Ipratropium/Albuterol Neb 3 ML IH SCH (13:29)
[2019-05-20] MEDS ORDERED: Acetaminophen 325 MG TABLET PO PRN (13:29)
[2019-05-20] MEDS ORDERED: Ondansetron ODT 4 MG TAB.RAPDIS SL PRN (13:29)
--- NOTE | 2019-05-20 13:37 | Internal Med History&Physical ---
Date of Encounter: 05/20/19 Time of Encounter: 13:35 Assessment and Plan (1) Tobacco abuse Current visit: Yes Status: Chronic educate smoking cessation. (2) Acute exacerbation of chronic obstructive airways disease Current visit: Yes Status: Acute IV steroids, atb. nebulizer treatments, O2 per NC. encourage incentive spirometer. (3) Hypertension Current visit: Yes Status: Chronic controlled with current meds. monitor BP. Qualifiers: Hypertension type: essential hypertension Qualified Code(s): I10 - Essential (primary) hypertension Internal Medicine - H&P: HPI Admitted From: Emergency Dept Plans for Post Hospital Care: Home History of present illness: Ms. Blakely is a 74 year old female transferred from ER to inpatient obs. has had increased SOB for 3 days. has felt weak with poor appetite, nonproductive cough. no fever. mild pedal edema and has had to sit up in bed or in a chair for last 2 nights. no hemoptysis. no chest pain but has had some tightness. has been wheezing. denies fever, chills, NVD. uses albuterol nebs at home 3 or so times a day, has used 2 already this morning. does not have oxygen at home. smokes 1/2 pack a day for 35 yrs, but has not smoked for 3 days. lives at home alone. hx of COPD and HTN. Past Med Surg Social Fam HX - Past Medical History Medical history: COPD, hypertension Psychiatric history: anxiety - Past Surgical History Surgical History: no surgical history - Social History Smoking Status: Current every day smoker Smokeless Tobacco Status: No Alcohol use: none Drug use: none - Family History Brother Living Status: Hx Family Cancer: Yes Internal Medicine - H&P: Meds Aspirin 81 mg PO DAILY 11/17/15 [History] Lisinopril [Zestril] 20 mg PO DAILY 11/17/15 [History] Albuterol Neb [Proventil Neb] 2.5 mg IH Q4HR PRN 03/22/19 [History] Albuterol Sulfate [Ventolin Hfa] 2 puff IH Q4H PRN 03/22/19 [History] Allergy/AdvReac Type Severity Reaction Status Date / Time pregabalin [From Lyrica] Allergy Intermediate Swelling Verified 03/22/19 22:26 of Lip/Tongue/Throat All Systems PM: A 10-system review of systems was performed and is negative for pertinent findings except as documented above in the HPI. - Constitutional Constitutional: no chills, no fever(s), no night sweats - EENT Eyes: no change in vision, no discharge, no pain, no photophobia Ears: no ear discharge, no ear pain, no tinnitus Nose, mouth and throat: no dysphagia, no nasal discharge, no neck pain, no sore throat - Cardiovascular Cardiovascular ROS IM: no chest pain, no diaphoresis, no dyspnea, no lightheade dness, no palpitations, no syncope - Respiratory Respiratory: cough, wheezing, no dyspnea, no excessive phlegm production - Gastrointestinal Gastrointestinal: no abdominal pain, no diarrhea, no hematemesis, no hematochezia, no melena, no nausea, no vomiting - Genitourinary Genitourinary: no change in urinary stream, no dysuria, no flank pain, no hematuria - Musculoskeletal Musculoskeletal ROS IM: no numbness, no tingling - Integumentary Integumentary IM: no rash, no unusual bruising - Neurological Neurological ROS: no confusion, no convulsions, no focal weakness, no numbness, no tingling, no tremor(s) - Hematologic/Lymphatic Hematologic/Lymphatic: no easy bruising - Constitutional Vitals: Temp Pulse Resp BP Pulse Ox 98.5 F 84 21 140/76 95 05/20/19 10:17 05/20/19 12:12 05/20/19 12:12 05/20/19 11:22 05/20/19 12:12 General appearance: Present: cooperative, A&O X 3, pleasant, no acute distress, answers questions appropriately - Head Head exam: Present: atraumatic, normocephalic - Eye Eye exam: Present: PERRL, conjuntiva pink, sclera anicteric Pupils: Present: PERRL - Neck Neck exam general surgery: Present: supple, trachea midline. Absent: lymphadenopathy - Respiratory Respiratory exam: Present: wheezes. Absent: accessory muscle use, rales, rhonchi Additional comments: wheezes scattered throughout. - Cardiovascular Cardiovascular exam: Present: RRR, +S1, +S2. Absent: diastolic murmur, gallop, rubs, systolic murmur - GI/Abdominal GI/Abdominal exam: Present: normal bowel sounds, soft, no peritoneal signs. Absent: distended, tenderness - Extremities Exam Extremities exam: Present: warm, radial pulses palpable and symmetrical. Absent: calf tenderness, cyanotic, pedal edema - Neurological Exam Neurological exam: Present: CN II-XII intact, oriented X3, no focal deficits. Absent: pronater drift, facial droop, speech deficit - Skin Skin exam: Present: dry, intact Internal Med - H&P Results - Labs CBC & Chem 7: 05/20/19 10:18 05/20/19 10:18 Labs: Short CBC 05/20/19 Range/Units 10:18 WBC 14.2 H (4.3-11.1) K/mcL Hgb 14.5 (11.5-15.4) g/dL Hct 43.7 (35.3-44.9) % Plt Count 369 (140-400) K/mcL Neutrophils # 9.9 H (1.6-8.9) K/mcL BMP 05/20/19 10:18 Sodium 133 L Potassium 4.4 Chloride 98 Carbon Dioxide 30 H BUN 9 Creatinine 0.71 Glucose 115 H Calcium 10.0 Cardiac Enzymes 05/20/19 Range/Units 10:18 Troponin I 0.03 (< 0.04) ng/mL Liver Function 05/20/19 Range/Units 10:18 Total Bilirubin 0.5 (0.3-1.0) mg/dL Direct Bilirubin 0.1 (0.0-0.2) mg/dL AST 16 (13-39) Units/L ALT 11 (7-52) Units/L Alkaline Phosphatase 102 (34-104) Units/L Albumin 4.3 (3.5-5.7) g/dL - Impressions ITS Impressions Chest X-Ray 05/20/19 10:18 IMPRESSION: Stable chest. No acute cardiopulmonary process. D/ / 05/20/2019 10:38:11 Jacobo Smith MD / sarah Interpreting Provider: Jacobo Smith MD
[2019-05-20] MEDS: MethylPREDNISolone 40 MG/ML VIAL IVP SCH ×2 (15:54→20:11)
[2019-05-20] MEDS: Ipratropium/Albuterol Neb 3 ML IH SCH (20:00)
[2019-05-20] MEDS: traMADol 50 MG TABLET PO PRN (20:10)
[2019-05-21] MEDS: Ipratropium/Albuterol Neb 3 ML IH SCH ×3 (01:20→09:43)
[2019-05-21] MEDS: traMADol 50 MG TABLET PO PRN (03:26)
[2019-05-21] MEDS ORDERED: *HR* Enoxaparin 40 MG/0.4 ML SYRINGE SQ SCH (06:00)
[2019-05-21] MEDS: MethylPREDNISolone 40 MG/ML VIAL IVP SCH (06:02)
[2019-05-21] MEDS ORDERED: Lisinopril 20 MG TABLET PO SCH (09:00)
[2019-05-21] MEDS ORDERED: cefTRIAXone 1,000 MG in Water for inj. (sterile) 10 ML IVP SCH (09:00)
[2019-05-21] MEDS ORDERED: Aspirin 81 MG TAB.CHEW PO SCH (09:00)
--- NOTE | 2019-05-21 10:46 | Discharge Summary ---
Orders not resulted at time of discharge: Pending orders 05/20/19 10:25 Culture,Blood [BC] Stat Date of Encounter: 05/21/19 Time of Encounter: 10:43 - Discharge Diagnosis (1) Tobacco abuse Priority: Secondary Status: Chronic Comments: Educating smoking cessation. Follow up with PCP. Suggested nicotine patch (2) Acute exacerbation of chronic obstructive airways disease Priority: Primary Status: Acute Comments: Continue prednisone 40 mg daily for 5 days. Follow up with PCP within one week. Continue nebulizer treatments. Improving. (3) Hypertension Priority: Secondary Status: Chronic Comments: Continue current medication. Monitor blood pressure. Follow up with PCP in one week. Qualifiers: Hypertension type: essential hypertension Qualified Code(s): I10 - Essential (primary) hypertension Hospital course: Ms. Blakely is a 74 year old female discharging to home after COPD exacerbation. Instructed to follow up with PCP in one week. Breathing has improved and is able to be on room air and ambulate with stats greater than 93%. Will continue prednisone 40 mg daily for 5 days. Continue nebulizers. States she has plenty at home. Denies fever, chills, nausea vomiting or diarrhea. Denies shortness of breath or chest pain. States she is feeling better. Discharge discussed with: patient, nurse Time spent discussing smoking cessation with patient: 3 to 10 minutes - Time Spent with Patient Total time spent providing and/or coordinating discharge services: Time spent: Less than 30 minutes - Discharge Medications Prescriptions: No Action Lisinopril [Zestril] 20 mg PO DAILY Aspirin 81 mg PO DAILY Albuterol Neb [Proventil Neb] 2.5 mg IH Q4HR PRN PRN Reason: Wheezing Albuterol Sulfate [Ventolin Hfa] 2 puff IH Q4H PRN PRN Reason: Wheezing Home Medications: Aspirin 81 mg PO DAILY 11/17/15 [History] Lisinopril [Zestril] 20 mg PO DAILY 11/17/15 [History] Albuterol Neb [Proventil Neb] 2.5 mg IH Q4HR PRN 03/22/19 [History] Albuterol Sulfate [Ventolin Hfa] 2 puff IH Q4H PRN 03/22/19 [History] Acetaminophen [Tylenol] 650 mg PO Q6HR PRN tablet 05/21/19 [Rx] Allergies/Adverse Reactions: Allergy/AdvReac Type Severity Reaction Status Date / Time pregabalin [From Lyrica] Allergy Intermediate Swelling Verified 03/22/19 22:26 of Lip/Tongue/Throat Date of admission: 05/20/19 12:51 Primary care physician: VANITA Bolaños Discharging clinician: Edison Mcgee Anticipated date of discharge: 05/21/19 - Constitutional Vitals: Temp Pulse Resp BP Pulse Ox 97.8 F 75 17 127/64 93 05/21/19 05:05 05/21/19 05:05 05/21/19 09:43 05/21/19 05:05 05/21/19 09:43 General appearance: Present: cooperative, A&O X 3, pleasant, no acute distress, answers questions appropriately - Head Head exam: Present: atraumatic, normocephalic - Eye Eye exam: Present: PERRL, conjuntiva pink, sclera anicteric Pupils: Present: PERRL - Neck Neck exam general surgery: Present: supple, trachea midline. Absent: lymphadenopathy - Respiratory Respiratory exam: Present: wheezes. Absent: accessory muscle use, rales, rhonchi Additional comments: Expiratory Wheeze to left upper lobe - Cardiovascular Cardiovascular exam: Present: RRR, +S1, +S2. Absent: diastolic murmur, gallop, rubs, systolic murmur - GI/Abdominal GI/Abdominal exam: Present: normal bowel sounds, soft, no peritoneal signs. Absent: distended, tenderness - Extremities Exam Extremities exam: Present: warm, radial pulses palpable and symmetrical. Absent: calf tenderness, cyanotic, pedal edema - Neurological Exam Neurological exam: Present: CN II-XII intact, oriented X3, no focal deficits. Absent: pronater drift, facial droop, speech deficit - Skin Skin exam: Present: dry, intact - Patient Status Disposition: Home, Self-Care Condition: Good Functional capacity at discharge: independent ambulation Overall status at discharge: patient is progressing back to baseline - Discharge Instructions Follow Up With: Yahaira Hare CNP [Primary Care Provider] - - Diet and Activity Activity: increase activity as tolerated Diet: advance to your usual diet
[2019-05-21 12:33] VITALS: BP 133/67
== END 2019-05-21 11:33 | disposition home or self-care (01) | DRG 192 ==
LOC: EMEROOGRE 10:08 → INPGRE 12:51

== ENCOUNTER 2019-07-15 03:18 | Inpatient (IN) ==
[2019-07-15] MEDS ORDERED: Albuterol 2.5 MG/3 ML NEBULIZER IH ONE (03:33)
[2019-07-15] MEDS ORDERED: levoFLOXacin 750 MG/150 ML 750 MG/150 ML BAG IVPB ONE (03:33)
[2019-07-15] MEDS ORDERED: methylPREDNISolone 125 MG/2 ML VIAL IVP ONE (03:33)
[2019-07-15] MEDS ORDERED: Ipratropium/Albuterol Neb 3 ML IH ONE (03:33)
--- NOTE | 2019-07-15 03:36 | Emergency Department Note ---
Disposition Clinical Impression: COPD exacerbation Disposition: Admitted As Inpatient Condition: Fair Time of Disposition: 06:00 SOB HPI - General Chief Complaint: ED Shortness of Breath/Dyspnea Stated Complaint: trouble breathing Time Seen by Provider: 07/15/19 03:28 Source: patient Limitations: no limitations Nursing Notes Reviewed: Yes Vital Signs Reviewed: Yes - History of Present Illness 74-year-old female with a history of COPD who states that her breathing has been worse since Monday of this week she believes it could have been from mowing the yard that set off her illness. She has had a cough producing some clear to yellow phlegm. She denies fevers or chills. She has not had any chest pain but describes a tightness to breathing that is present. She has not had any nausea or vomiting. She did have diarrhea for the last 2 days and had 3-4 loose to watery brown bowel movements per day. She denies any hematochezia. She has not been on any recent antibiotics and does not recall being around anyone else with diarrhea. - Related Data Home Medications Medication Instructions Recorded Confirmed Aspirin 81 mg PO DAILY 11/17/15 07/15/19 Lisinopril [Zestril] 20 mg PO DAILY 11/17/15 07/15/19 Albuterol Neb [Proventil Neb] 2.5 mg IH Q4HR PRN 03/22/19 07/15/19 Albuterol Sulfate [Ventolin Hfa] 2 puff IH Q4H PRN 03/22/19 07/15/19 Multivitamin [Daily Multiple 1 each PO DAILY 07/15/19 07/15/19 Vitamin] Previous Rx's Medication Instructions Recorded Acetaminophen [Tylenol] 650 mg PO Q6HR PRN tablet 05/21/19 Allergies Allergy/AdvReac Type Severity Reaction Status Date / Time pregabalin [From Lyrica] Allergy Intermediate Swelling Verified 03/22/19 22:26 of Lip/Tongue/Throat Constitutional: Denies: fever, chills Eyes: Denies: eye discharge ENT ED: Denies: throat pain Cardiovascular: Reports: dyspnea on exertion, orthopnea. Denies: chest pain Respiratory: Reports: cough, wheezes, sputum production. Denies: hemoptysis, stridor Gastrointestinal: Reports: diarrhea. Denies: abdominal pain, nausea, vomiting, hematemesis, melena, hematochezia Genitourinary: Denies: dysuria Musculoskeletal: Denies: back pain Integumentary: Denies: rash Neurological: Denies: headache Psychiatric: Reports: anxiety Endocrine: Reports: fatigue Hematological/Lymphatic: Denies: easy bleeding Allergic/Immunologic: Denies: facial swelling Past Medical History - Past Medical History Medical history: Reports: COPD, hypertension Surgical history: Reports: no surgical history Psychiatric history: Reports: anxiety MAINTENANCE OF [employer] history: Reports: no MAINTENANCE [employer] history - Social History Smoking Status: Current every day smoker Smokeless Tobacco Status: No Alcohol use: Reports: none Drug use: Reports: none Physical Exam - General Limitations: no limitations General appearance: alert, in no apparent distress - Head Head exam: atraumatic - Eye Eye exam: Present: normal appearance - ENT ENT exam: normal exam, normal oropharynx - Neck Neck exam: Present: normal inspection - Chest Chest inspection: Present: symmetric chest wall rise - Respiratory Respiratory exam: Present: respiratory distress, wheezes, accessory muscle use, prolonged expiratory phase - Cardiovascular Cardiovascular exam: Present: normal rhythm, tachycardia. Absent: systolic murmur, diastolic murmur, rubs, gallop - Abdominal Exam Abdominal exam: Present: soft, Non-Tender, normal bowel sounds - Extremities Exam Extremities exam: Present: normal inspection, normal capillary refill. Absent: pedal edema, calf tenderness - Expanded Lower Extremity Exam Neurovascular/Tendon exam: Present: normal capillary refill - Back Exam Back exam: Present: other (Kyphosis is present) - Neurological Exam Neurological exam: Present: alert, CN II-XII intact. Absent: motor sensory deficit - Psychiatric Psychiatric exam: Present: anxious - Skin Skin exam: Present: warm, dry Course Course Narrative: Breathing treatments and intravenous Solu-Medrol were given - Consultations Time: 05:43 (Discussed the case with Dr. Mcgee who agreed to admit the patient) Vital Signs Temperature 98.7 F 07/15/19 03:26 Pulse Rate 92 07/15/19 03:26 Respiratory Rate 26 07/15/19 03:26 Blood Pressure 164/128 07/15/19 03:26 O2 Sat by Pulse Oximetry 87 07/15/19 03:26 Temperature 97.4 F L 07/15/19 06:27 Pulse Rate 82 07/15/19 06:27 Respiratory Rate 18 09/23/19 06:27 Blood Pressure 133/70 07/15/19 06:27 O2 Sat by Pulse Oximetry 95 07/15/19 06:27 Oxygen Delivery Oxygen Delivery Nasal Cannula Shortness of Breath/Dyspnea - [facility] Narrative Medical decision making narrative: COPD exacerbation, I do not find evidence at this time of pneumonia, CHF, acute coronary syndrome, pulmonary embolism, she however has not improved adequately for discharge home and needs admitted for further breathing treatments - Differential Diagnosis Likely: acute exacerbation of chronic obstructive airways disease, congestive heart failure - Medical Records Medical records reviewed: Yes I reviewed the patient's medical records. - Lab Data Lab results reviewed: Yes I reviewed the patient's lab results. Result diagrams: 07/15/19 03:45 07/15/19 03:45 Lab Results 07/15/19 07/15/19 07/15/19 Range/Units 03:45 03:45 03:45 WBC 12.4 H (4.3-11.1) K/mcL RBC 4.46 (3.82-4.97) M/mcL Hgb 14.0 (11.5-15.4) g/dL Hct 41.1 (35.3-44.9) % MCV 92.2 (83.0-100.0) fL MCH 31.4 (28.0-33.3) pg MCHC 34.1 (31.6-35.5) g/dL RDW 13.3 (11.5-14.5) % Plt Count 283 (140-400) K/mcL MPV 9.3 L (9.4-12.4) fL Immature Gran % 0.4 (0-4) % Seg Neutrophils % 64.6 % Lymphocytes % 19.1 % Monocytes % 6.9 % Eosinophils % 7.9 % Basophils % 1.1 % Neutrophils # 8.0 (1.6-8.9) K/mcL Lymphocytes # 2.4 (0.6-4.6) K/mcL Monocytes # 0.9 (0.0-1.3) K/mcL Eosinophils # 1.0 H (0.0-0.6) K/mcL Basophils # 0.1 (0.0-0.2) K/mcL Sodium 130 L (136-145) mEq/L Potassium 4.0 (3.5-5.1) mEq/L Chloride 98 (98-107) mEq/L Carbon Dioxide 27 (23-29) mEq/L BUN 7 L (8-23) mg/dL Creatinine 0.65 (0.60-1.20) mg/dL Est GFR ( Amer) > 60 (> 60) Est GFR (Non-Af Amer) > 60 (> 60) BUN/Creatinine Ratio 11 (6-26) Glucose 115 H (70-105) mg/dL Calculated Osmolality 269 L (280-300) Lactic Acid 1.0 (0.5-2.2) mmol/L Calcium 9.6 (8.6-10.3) mg/dL Troponin I < 0.03 (< 0.04) ng/mL B-Natriuretic Peptide (Less than 100) pg/mL 07/15/19 07/15/19 Range/Units 03:45 05:34 WBC (4.3-11.1) K/mcL RBC (3.82-4.97) M/mcL Hgb (11.5-15.4) g/dL Hct (35.3-44.9) % MCV (83.0-100.0) fL MCH (28.0-33.3) pg MCHC (31.6-35.5) g/dL RDW (11.5-14.5) % Plt Count (140-400) K/mcL MPV (9.4-12.4) fL Immature Gran % (0-4) % Seg Neutrophils % % Lymphocytes % % Monocytes % % Eosinophils % % Basophils % % Neutrophils # (1.6-8.9) K/mcL Lymphocytes # (0.6-4.6) K/mcL Monocytes # (0.0-1.3) K/mcL Eosinophils # (0.0-0.6) K/mcL Basophils # (0.0-0.2) K/mcL Sodium (136-145) mEq/L Potassium (3.5-5.1) mEq/L Chloride (98-107) mEq/L Carbon Dioxide (23-29) mEq/L BUN (8-23) mg/dL Creatinine (0.60-1.20) mg/dL Est GFR ( Amer) (> 60) Est GFR (Non-Af Amer) (> 60) BUN/Creatinine Ratio (6-26) Glucose (70-105) mg/dL Calculated Osmolality (280-300) Lactic Acid 1.0 (0.5-2.2) mmol/L Calcium (8.6-10.3) mg/dL Troponin I (< 0.04) ng/mL B-Natriuretic Peptide 44 (Less than 100) pg/mL - Radiology Data Radiology results reviewed: Yes I reviewed the patient's radiology results. Chest x-ray no acute cardiopulmonary disease, hyperinflation consistent with COPD - EKG Data EKG attestation: Yes I reviewed and interpreted this EKG. EKG results narrative: Sinus rhythm of 90 bpm, incomplete right bundle branch block pattern, poor progression possibly consistent with anterior injury of indeterminate age, normal PA interval, normal QRS axis of 70 degrees, QT corrected interval 464 ms Interpretation: Reports: unchanged when compared to prior tracing (date) (05/20/2019) Critical Care Time Critical Care Time: No
[2019-07-15 03:55] LABS: Basophils # 0.1 K/mcL (0.0-0.2); Basophils % 1.1 %; Eosinophils % 7.9 %; Hematocrit 41.1 % (35.3-44.9); Immature Granulocytes % 0.4 % (0-4); Lymphocytes # 2.4 K/mcL (0.6-4.6); Lymphocytes % 19.1 %; Mean Corpuscular HGB Conc 34.1 g/dL (31.6-35.5); Mean Corpuscular Hemoglobin 31.4 pg (28.0-33.3); Mean Corpuscular Volume 92.2 fL (83.0-100.0); Mean Platelet Volume 9.3 fL (9.4-12.4); Monocytes # 0.9 K/mcL (0.0-1.3); Monocytes % 6.9 %; Platelet Count 283 K/mcL (140-400); Red Blood Count 4.46 M/mcL (3.82-4.97); Red Cell Distribution Width 13.3 % (11.5-14.5); Segmented Neutrophils % 64.6 %; White Blood Count 12.4 K/mcL (4.3-11.1)
[2019-07-15 04:12] LABS: BUN/Creatinine Ratio 11 (6-26); Blood Urea Nitrogen 7 mg/dL (8-23); Calcium 9.6 mg/dL (8.6-10.3); Carbon Dioxide 27 mEq/L (23-29); Chloride 98 mEq/L (98-107); Glucose 115 mg/dL (70-105); Osmolality,Calculated 269 (280-300); Sodium 130 mEq/L (136-145); eGFR For African Americans > 60 (> 60); eGFR For Non-African Americans > 60 (> 60)
[2019-07-15 04:13] LABS: Troponin I < 0.03 ng/mL (< 0.04)
[2019-07-15] MEDS ORDERED: Naloxone 0.4 MG/ML INJ IVP PRN (06:09)
[2019-07-15] MEDS ORDERED: Ondansetron ODT 4 MG TAB.RAPDIS SL PRN (06:09)
[2019-07-15] MEDS ORDERED: Mag Hydrox/Al Hydrox/Simeth 30 ML UDC PO PRN (06:09)
[2019-07-15] MEDS: 0.9 % Sodium Chloride 1,000 ML IVC SCH ×2 (06:55→17:17)
[2019-07-15] MEDS: Albuterol 2.5 MG/3 ML NEBULIZER IH PRN (08:42)
[2019-07-15] MEDS: Aspirin 81 MG TAB.CHEW PO SCH (09:13)
[2019-07-15] MEDS: Lisinopril 20 MG TABLET PO SCH (09:13)
[2019-07-15] MEDS: Acetaminophen 325 MG TABLET PO PRN ×3 (09:13→21:19)
--- NOTE | 2019-07-15 11:09 | Internal Med History&Physical ---
Date of Encounter: 07/15/19 Time of Encounter: 11:05 Assessment and Plan (1) COPD exacerbation Current visit: Yes Status: Acute Patient with exacerbation of COPD after experiencing what appears to be a asthmatic-type reaction after mowing her grass. Patient states that her breathing is slightly improved overnight but continues to have a productive cou gh with yellow phlegm. Admission chest x-ray reviewed showed no infectious process. Patient continues to have slight expiratory wheeze her to upper oneil with diminished basilar oneil. Afebrile. We will continue with current bronchodilators and medications and continue to monitor closely. His with long history of COPD and tobacco abuse (2) Hypertension Current visit: No Status: Chronic Vital signs stable. We will continue with current medications. Qualifiers: Hypertension type: essential hypertension Qualified Code(s): I10 - Essential (primary) hypertension (3) Leukocytosis Current visit: No Status: Acute Patient with slightly elevated WBC count of 12.8. We will continue to monitor closely. Afebrile. Qualifiers: Leukocytosis type: unspecified Qualified Code(s): D72.829 - Elevated white blood cell count, unspecified Internal Medicine - H&P: HPI Chief complaint: dyspnea Admitted From: Home Plans for Post Hospital Care: Home History of present illness: Ms. Blakely is a 74 year old female with a history of COPD, who states that her breathing has been progressively worse since Monday of this week and believes it could have been from mowing the yard that set off her illness. She has had a cough producing some clear to yellow phlegm, audible wheezing and dyspnea. She denies fevers or chills. She states no chest pain, but describes a tightness to breathing at time of admission. She has not had any nausea or vomiting. She did have diarrhea for the last 2 days and had 3-4 loose to watery brown bowel movements per day. She denies any hematochezia. She has not been on any recent antibiotics and does not recall being around anyone else with diarrhea. This morning patient continues to have a productive cough of yellow phlegm received. Patient states that she has had difficult time moving her phlegm which she states is very thick. Patient states that after coughing she becomes short of breath and has noted her audible wheeze. Intensive denies any fever or chills. Denies any other discomforts or dysuria. Denies any stools this morning. Patient with a history of COPD and was recently admitted for exacerbation of COPD to this facility several months ago. Past Med Surg Social Fam HX - Past Medical History Medical history: arthritis, COPD, hypertension Psychiatric history: anxiety - Past Surgical History Surgical History: hip replacement, hysterectomy Additional surgical history: left hip replacement, bladder surgery - Social History Smoking Status: Current every day smoker Packs per day: 1/2 Smokeless Tobacco Status: No Alcohol use: none Drug use: none - Family History Brother Living Status: Hx Family Cancer: Yes Internal Medicine - H&P: Meds Aspirin 81 mg PO DAILY 11/17/15 [History] Lisinopril [Zestril] 20 mg PO DAILY 11/17/15 [History] Albuterol Neb [Proventil Neb] 2.5 mg IH Q4HR PRN 03/22/19 [History] Albuterol Sulfate [Ventolin Hfa] 2 puff IH Q4H PRN 03/22/19 [History] Acetaminophen [Tylenol] 650 mg PO Q6HR PRN tablet 05/21/19 [Rx] Multivitamin [Daily Multiple Vitamin] 1 each PO DAILY 07/15/19 [History] Allergy/AdvReac Type Severity Reaction Status Date / Time pregabalin [From Lyrica] Allergy Intermediate Swelling Verified 03/22/19 22:26 of Lip/Tongue/Throat All Systems PM: A 10-system review of systems was performed and is negative for pertinent findings except as documented above in the HPI. - Constitutional Constitutional: as per HPI, no chills, no fever(s), no night sweats - EENT Eyes: no change in vision, no discharge, no pain, no photophobia Ears: as per HPI, no ear discharge, no ear pain, no tinnitus Nose, mouth and throat: no dysphagia, no nasal discharge, no neck pain, no sore throat - Breasts Breasts: as per HPI - Cardiovascular Cardiovascular ROS IM: as per HPI, no chest pain, no diaphoresis, no dyspnea, no lightheadedness, no palpitations, no syncope - Respiratory Respiratory: as per HPI, no cough, no dyspnea, no wheezing, no excessive phlegm production - Gastrointestinal Gastrointestinal: as per HPI, no abdominal pain, no diarrhea, no hematemesis, no hematochezia, no melena, no nausea, no vomiting - Genitourinary Genitourinary: as per HPI, no change in urinary stream, no dysuria, no flank pain, no hematuria - Musculoskeletal Musculoskeletal ROS IM: as per HPI, no numbness, no tingling - Integumentary Integumentary IM: as per HPI, no rash, no unusual bruising - Neurological Neurological ROS: as per HPI, no confusion, no convulsions, no focal weakness, no numbness, no tingling, no tremor(s) - Psychiatric Psychiatric: as per HPI - Endocrine Endocrine IM: as per HPI - Hematologic/Lymphatic Hematologic/Lymphatic: no easy bruising - Constitutional Vitals: Temp Pulse Resp BP Pulse Ox 97.4 F L 82 20 133/70 96 07/15/19 06:27 07/15/19 06:27 07/15/19 08:43 07/15/19 06:27 07/15/19 08:43 General appearance: Present: A&O X 3, pleasant - Head Head exam: Present: atraumatic, normocephalic - Eye Eye exam: Present: PERRL, conjuntiva pink, sclera anicteric Pupils: Present: PERRL - Neck Neck exam general surgery: Present: supple, trachea midline. Absent: lymphadenopathy - Respiratory Respiratory exam: Present: decreased breath sounds, CTAB, wheezes. Absent: accessory muscle use, rales, rhonchi Additional comments: Lungs started to have slight expiratory wheeze for to upper oneil but diminished breath sounds to lower oneil. Patient with productive cough but no phlegm has been noted. Respiratory effort appears relaxed the patient noted to become winded after a series of coughing. - Cardiovascular Cardiovascular exam: Present: RRR, +S1, +S2. Absent: diastolic murmur, gallop, rubs, systolic murmur - GI/Abdominal GI/Abdominal exam: Present: normal bowel sounds, soft, no peritoneal signs. Absent: distended, tenderness - Extremities Exam Extremities exam: Present: warm, radial pulses palpable and symmetrical. Absent: calf tenderness, cyanotic, pedal edema - Neurological Exam Neurological exam: Present: CN II-XII intact, oriented X3, no focal deficits. Absent: pronater drift, facial droop, speech deficit - Skin Skin exam: Present: dry, intact Internal Med - H&P Results - Labs CBC & Chem 7: 07/15/19 03:45 07/15/19 03:45 Labs: Short CBC 07/15/19 Range/Units 03:45 WBC 12.4 H (4.3-11.1) K/mcL Hgb 14.0 (11.5-15.4) g/dL Hct 41.1 (35.3-44.9) % Plt Count 283 (140-400) K/mcL Neutrophils # 8.0 (1.6-8.9) K/mcL BMP 07/15/19 03:45 Sodium 130 L Potassium 4.0 Chloride 98 Carbon Dioxide 27 BUN 7 L Creatinine 0.65 Glucose 115 H Calcium 9.6 Cardiac Enzymes 07/15/19 Range/Units 03:45 Troponin I < 0.03 (< 0.04) ng/mL - Impressions ITS Impressions Chest X-Ray 07/15/19 03:46 IMPRESSION: No acute findings. Hyperinflated lungs suggest obstructive small airways disease such as asthma or COPD. D/ / Anjel De La Rosa / Anjel De La Rosa Interpreting Provider: Anjel De La Rosa
[2019-07-15] MEDS: Ipratropium/Albuterol Neb 3 ML IH PRN ×2 (13:32→20:21)
--- NOTE | 2019-07-15 18:32 | Electrocardiograph Report ---
[place] [id number] Test Date: 2019-07-15 Pat Name: Emilee Blakely Department: EDG2 Room: 115 Gender: F Toll Collector: : 1945 Requested By: [id number] Order Number: [id number] Reading MD: Blayne Rossi Measurements Intervals [place] Rate: 90 P: 82 OK: 171 QRS: 70 QRSD: 92 T: 59 QT: 379 QTc: 464 Interpretive Statements Sinus rhythm RSR' in V1 or V2, probably normal variant Electronically Signed On 07-15-2019 16:46:47 EDT by Blayne Rossi
[2019-07-15] MEDS: Gabapentin 100 MG CAPSULE PO SCH (21:19)
[2019-07-15] MEDS: Melatonin 3 MG TABLET PO PRN (21:20)
[2019-07-16] MEDS: Lisinopril 20 MG TABLET PO SCH (08:20)
[2019-07-16] MEDS: Aspirin 81 MG TAB.CHEW PO SCH (08:20)
--- NOTE | 2019-07-16 09:30 | Internal Med Progress Note ---
Date of Encounter: 07/16/19 Time of Encounter: 09:27 - Assessment and plan (1) COPD exacerbation Current Visit: Yes Status: Acute Assessment and plan: Continue inhaled meds. Continue oxygen per nasal cannula. Monitoring O2 sats. Continue steroids. (2) Hypertension Current Visit: Yes Status: Chronic Assessment and plan: Controlled with current medication. Monitor blood pressure. Qualifiers: Hypertension type: essential hypertension Qualified Code(s): I10 - Essential (primary) hypertension - Time Spent With Patient less than 15 minutes - Subjective Interval history: Sitting up in bed, states cough has gotten worse as well as wheezing from yesterday. Denies chest pain. Denies fever, chills, nausea vomiting or diarrhea. States that her nose stuffy and she has a headache. Maintaining appetite and hydration. States bowels are moving as normal. - Constitutional Vitals: Temp Pulse Resp BP Pulse Ox 98.5 F 69 16 129/65 99 07/16/19 07:31 07/16/19 07:31 07/16/19 07:31 07/16/19 07:31 07/16/19 07:31 General appearance: Present: A&O X 3, pleasant, no acute distress, answers questions appropriately - Head Head exam: Present: atraumatic, normocephalic - Eye Eye exam: Present: PERRL, conjuntiva pink, sclera anicteric Pupils: Present: PERRL - Neck Neck exam general surgery: Present: supple, trachea midline. Absent: lymphadenopathy - Respiratory Respiratory exam: Absent: accessory muscle use, rales Additional comments: Scattered rhonchi and wheezes throughout. Congested cough - Cardiovascular Cardiovascular exam: Present: RRR, +S1, +S2. Absent: diastolic murmur, gallop, rubs, systolic murmur - GI/Abdominal GI/Abdominal exam: Present: normal bowel sounds, soft, no peritoneal signs. Absent: distended, tenderness - Extremities Exam Extremities exam: Present: warm, radial pulses palpable and symmetrical. Absent: calf tenderness, cyanotic, pedal edema - Neurological Exam Neurological exam: Present: CN II-XII intact, oriented X3, no focal deficits. Absent: pronater drift, facial droop, speech deficit - Skin Skin exam: Present: dry, intact Internal Medicine: Result - Labs CBC & Chem 7: 07/15/19 03:45 07/15/19 03:45 Consult Discharge Plan - Plan Referrals: Yahaira Hare, ELENO [Primary Care Provider] -
[2019-07-16] MEDS ORDERED: *HR* Enoxaparin 40 MG/0.4 ML SYRINGE SQ ONE (09:32)
[2019-07-16] MEDS ORDERED: methylPREDNISolone 125 MG/2 ML VIAL IVP SCH (10:00)
[2019-07-16] MEDS: levoFLOXacin 750 MG/150 ML 750 MG/150 ML BAG IVPB SCH (11:58)
[2019-07-16] MEDS: *HR* Enoxaparin 40 MG/0.4 ML SYRINGE SQ SCH (13:30)
[2019-07-16] MEDS: Albuterol 2.5 MG/3 ML NEBULIZER IH PRN (13:43)
[2019-07-16] MEDS ORDERED: cloNIDine HCl 0.1 MG TABLET PO PRN (18:42)
[2019-07-16] MEDS: Ipratropium/Albuterol Neb 3 ML IH PRN (20:25)
[2019-07-16] MEDS: Gabapentin 100 MG CAPSULE PO SCH (21:02)
[2019-07-16] MEDS: Melatonin 3 MG TABLET PO PRN (21:02)
[2019-07-16] MEDS: methylPREDNISolone 125 MG/2 ML VIAL IVP SCH (21:03)
[2019-07-17] MEDS: methylPREDNISolone 125 MG/2 ML VIAL IVP SCH ×2 (04:23→12:36)
[2019-07-17] MEDS: *HR* Enoxaparin 40 MG/0.4 ML SYRINGE SQ SCH (04:23)
[2019-07-17] MEDS: levoFLOXacin 750 MG/150 ML 750 MG/150 ML BAG IVPB SCH (07:48)
[2019-07-17] MEDS: Aspirin 81 MG TAB.CHEW PO SCH (07:48)
[2019-07-17] MEDS: Lisinopril 20 MG TABLET PO SCH (07:49)
[2019-07-17] MEDS: Albuterol 2.5 MG/3 ML NEBULIZER IH PRN (09:46)
--- NOTE | 2019-07-17 10:02 | Discharge Summary ---
Date of Encounter: 07/17/19 Time of Encounter: 09:59 - Discharge Diagnosis (1) COPD exacerbation Priority: Primary Status: Acute Comments: improving, continue prednisone and follow up with PCP in 1 week. (2) Hypertension Priority: Secondary Status: Chronic Comments: controlled with current meds. monitor BP. Qualifiers: Hypertension type: essential hypertension Qualified Code(s): I10 - Essential (primary) hypertension Hospital course: Ms. Blakely is a 74 year old female discharging to home. was admitted with COPD exacerbation. has been improving and denies SOB, chest pain, fever, chills, NVD. O2 sats remaining greater than 92% at room air. Will continue 40 mg prednisone daily for 5 days. Follow up with PCP within one week. Discharge discussed with: patient, family, nurse, social work - Time Spent with Patient Total time spent providing and/or coordinating discharge services: Time spent: Less than 30 minutes - Discharge Medications Prescriptions: No Action Lisinopril [Zestril] 20 mg PO DAILY Aspirin 81 mg PO DAILY Albuterol Neb [Proventil Neb] 2.5 mg IH Q4HR PRN PRN Reason: Wheezing Albuterol Sulfate [Ventolin Hfa] 2 puff IH Q4H PRN PRN Reason: Wheezing Acetaminophen [Tylenol] 650 mg PO Q6HR PRN tablet PRN Reason: Mild Pain/Fever Multivitamin [Daily Multiple Vitamin] 1 each PO DAILY Home Medications: Aspirin 81 mg PO DAILY 11/17/15 [History] Lisinopril [Zestril] 20 mg PO DAILY 11/17/15 [History] Albuterol Neb [Proventil Neb] 2.5 mg IH Q4HR PRN 03/22/19 [History] Albuterol Sulfate [Ventolin Hfa] 2 puff IH Q4H PRN 03/22/19 [History] Acetaminophen [Tylenol] 650 mg PO Q6HR PRN tablet 05/21/19 [Rx] Multivitamin [Daily Multiple Vitamin] 1 each PO DAILY 07/15/19 [History] Allergies/Adverse Reactions: Allergy/AdvReac Type Severity Reaction Status Date / Time pregabalin [From Lyrica] Allergy Intermediate Swelling Verified 03/22/19 22:26 of Lip/Tongue/Throat Date of admission: 07/15/19 06:16 Primary care physician: VANITA Bolaños Discharging clinician: Edison Mcgee Anticipated date of discharge: 07/17/19 - Constitutional Vitals: Temp Pulse Resp BP Pulse Ox 98.1 F 69 15 137/73 94 07/17/19 08:20 07/17/19 08:20 07/17/19 09:46 07/17/19 08:20 07/17/19 09:46 General appearance: Present: cooperative, A&O X 3, pleasant, no acute distress, answers questions appropriately - Head Head exam: Present: atraumatic, normocephalic - Eye Eye exam: Present: PERRL, conjuntiva pink, sclera anicteric Pupils: Present: PERRL - Neck Neck exam general surgery: Present: supple, trachea midline. Absent: lymphadenopathy - Respiratory Respiratory exam: Present: CTAB. Absent: accessory muscle use, rales, rhonchi, wheezes - Cardiovascular Cardiovascular exam: Present: RRR, +S1, +S2. Absent: diastolic murmur, gallop, rubs, systolic murmur - GI/Abdominal GI/Abdominal exam: Present: normal bowel sounds, soft, no peritoneal signs. Absent: distended, tenderness - Extremities Exam Extremities exam: Present: warm, radial pulses palpable and symmetrical. Absent: calf tenderness, cyanotic, pedal edema - Neurological Exam Neurological exam: Present: CN II-XII intact, oriented X3, no focal deficits. Absent: pronater drift, facial droop, speech deficit - Skin Skin exam: Present: dry, intact - Patient Status Disposition: Home, Self-Care Condition: Good Functional capacity at discharge: independent ambulation Overall status at discharge: patient is progressing back to baseline - Discharge Instructions Follow Up With: Yahaira Hare [employer]ACKING ROOM WORKER [Primary Care Provider] - - Diet and Activity Activity: increase activity as tolerated Diet: advance to your usual diet
[2019-07-17] MEDS: Acetaminophen 325 MG TABLET PO PRN (10:04)
[2019-07-17 11:52] VITALS: BP 146/75
== END 2019-07-17 14:48 | disposition home or self-care (01) | DRG 192 ==
LOC: EMEROOGRE 03:18 → INPGRE 06:16

== ENCOUNTER 2019-09-12 00:28 | Inpatient (IN) ==
[2019-09-12] MEDS ORDERED: Ipratropium/Albuterol Neb 3 ML ONE ×2 (00:34→02:47)
[2019-09-12] MEDS ORDERED: methylPREDNISolone 125 MG/2 ML VIAL IVP ONE (00:35)
[2019-09-12] MEDS ORDERED: Ipratropium/Albuterol Neb 3 ML IH ONE ×2 (00:35→00:36)
[2019-09-12 01:14] LABS: BUN/Creatinine Ratio 14 (6-26); Basophils # 0.2 K/mcL (0.0-0.2); Basophils % 1.3 %; Blood Urea Nitrogen 10 mg/dL (8-23); Calcium 9.3 mg/dL (8.6-10.3); Carbon Dioxide 26 mEq/L (23-29); Chloride 100 mEq/L (98-107); Eosinophils # 1.8 K/mcL (0.0-0.6); Eosinophils % 14.6 %; Glucose 140 mg/dL (70-105); Hematocrit 42.8 % (35.3-44.9); Hemoglobin 14.4 g/dL (11.5-15.4); Immature Granulocytes % 0.2 % (0-4); Lymphocytes # 3.6 K/mcL (0.6-4.6); Lymphocytes % 29.7 %; Mean Corpuscular HGB Conc 33.6 g/dL (31.6-35.5); Mean Corpuscular Hemoglobin 31.8 pg (28.0-33.3); Mean Corpuscular Volume 94.5 fL (83.0-100.0); Mean Platelet Volume 9.3 fL (9.4-12.4); Monocytes # 1.3 K/mcL (0.0-1.3); Monocytes % 10.6 %; Neutrophils # 5.2 K/mcL (1.6-8.9); Osmolality,Calculated 277 (280-300); Platelet Count 264 K/mcL (140-400); Red Blood Count 4.53 M/mcL (3.82-4.97); Red Cell Distribution Width 13.7 % (11.5-14.5); Segmented Neutrophils % 43.6 %; Sodium 133 mEq/L (136-145); eGFR For African Americans > 60 (> 60); eGFR For Non-African Americans > 60 (> 60)
[2019-09-12 01:18] LABS: Troponin I < 0.03 ng/mL (< 0.04)
[2019-09-12 01:29] LABS: ABG Base Excess -1 mEq/L (-2 to 3); ABG HCO3 27 mEq/L (21-27); ABG Oxygen Saturation 93 % (95-98); ABG PCO2 56 mmHg (35-45); ABG PH 7.29 pH Units (7.32-7.45); ABG PO2 75 mmHg (85-104); ABG TCO2 28 mEq/L (20-26)
[2019-09-12] MEDS ORDERED: Naloxone 0.4 MG/ML INJ IVP PRN (02:47)
[2019-09-12] MEDS ORDERED: Acetaminophen 325 MG TABLET PO PRN (02:47)
[2019-09-12] MEDS ORDERED: Ondansetron ODT 4 MG TAB.RAPDIS SL PRN (02:47)
[2019-09-12] MEDS ORDERED: Albuterol 2.5 MG/3 ML NEBULIZER IH SCH ×2 (04:00)
[2019-09-12] MEDS ORDERED: Ipratropium Neb 0.5 MG NEBULIZER IH SCH ×2 (04:00)
[2019-09-12] MEDS: Ipratropium/Albuterol Neb 3 ML IH SCH ×6 (07:39→23:58)
[2019-09-12] MEDS: Multivit/Ca/Min/Fe/FA 1 TAB TABLET PO SCH (07:51)
[2019-09-12] MEDS: Aspirin 81 MG TAB.CHEW PO SCH (07:51)
[2019-09-12] MEDS: Lisinopril 20 MG TABLET PO SCH (07:51)
[2019-09-12] MEDS ORDERED: Albuterol 2.5 MG/3 ML NEBULIZER IH PRN (10:52)
[2019-09-12] MEDS: Azithromycin 500 MG in 0.9 % Sodium Chloride 250 ML IVPB SCH (12:00)
[2019-09-12] MEDS: traMADol 50 MG TABLET PO PRN (12:27)
[2019-09-12] MEDS: methylPREDNISolone 125 MG/2 ML VIAL IVP SCH ×2 (15:11→23:43)
[2019-09-12] MEDS: Gabapentin 300 MG CAPSULE PO SCH (20:58)
[2019-09-13] MEDS: Ipratropium/Albuterol Neb 3 ML IH SCH ×6 (04:09→23:40)
[2019-09-13] MEDS: Multivit/Ca/Min/Fe/FA 1 TAB TABLET PO SCH (08:10)
[2019-09-13] MEDS: methylPREDNISolone 125 MG/2 ML VIAL IVP SCH ×3 (08:10→23:40)
[2019-09-13] MEDS: Aspirin 81 MG TAB.CHEW PO SCH (08:11)
[2019-09-13] MEDS: Lisinopril 20 MG TABLET PO SCH (08:11)
[2019-09-13] MEDS: Azithromycin 500 MG in 0.9 % Sodium Chloride 250 ML IVPB SCH (12:33)
[2019-09-13] MEDS: *HR* Enoxaparin 40 MG/0.4 ML SYRINGE SQ SCH (12:34)
[2019-09-13] MEDS: traMADol 50 MG TABLET PO PRN ×2 (16:39→21:36)
[2019-09-13] MEDS: Gabapentin 300 MG CAPSULE PO SCH (21:36)
[2019-09-14] MEDS: Ipratropium/Albuterol Neb 3 ML IH SCH ×3 (04:26→11:00)
[2019-09-14 07:48] VITALS: BP 144/79
[2019-09-14] MEDS: methylPREDNISolone 125 MG/2 ML VIAL IVP SCH (08:43)
[2019-09-14] MEDS: Aspirin 81 MG TAB.CHEW PO SCH (08:43)
[2019-09-14] MEDS: Lisinopril 20 MG TABLET PO SCH (08:45)
[2019-09-14] MEDS: Multivit/Ca/Min/Fe/FA 1 TAB TABLET PO SCH (08:45)
[2019-09-14] MEDS: *HR* Enoxaparin 40 MG/0.4 ML SYRINGE SQ SCH (08:47)
[2019-09-14 11:42] LABS: Basophils % 0.1 %; Hematocrit 40.5 % (35.3-44.9); Hemoglobin 13.7 g/dL (11.5-15.4); Immature Granulocytes % 0.5 % (0-4); Lymphocytes # 0.7 K/mcL (0.6-4.6); Lymphocytes % 3.5 %; Mean Corpuscular HGB Conc 33.8 g/dL (31.6-35.5); Mean Corpuscular Hemoglobin 31.8 pg (28.0-33.3); Mean Platelet Volume 9.8 fL (9.4-12.4); Monocytes # 0.8 K/mcL (0.0-1.3); Monocytes % 3.6 %; Neutrophils # 19.6 K/mcL (1.6-8.9); Platelet Count 277 K/mcL (140-400); Red Blood Count 4.31 M/mcL (3.82-4.97); Red Cell Distribution Width 13.6 % (11.5-14.5); Segmented Neutrophils % 92.3 %; White Blood Count 21.2 K/mcL (4.3-11.1)
[2019-09-14 11:57] LABS: BUN/Creatinine Ratio 19 (6-26); Blood Urea Nitrogen 14 mg/dL (8-23); Calcium 9.6 mg/dL (8.6-10.3); Carbon Dioxide 29 mEq/L (23-29); Chloride 97 mEq/L (98-107); Glucose 142 mg/dL (70-105); Osmolality,Calculated 279 (280-300); Potassium 4.1 mEq/L (3.5-5.1); Sodium 133 mEq/L (136-145); eGFR For African Americans > 60 (> 60); eGFR For Non-African Americans > 60 (> 60)
[2019-09-14] MEDS: Azithromycin 500 MG in 0.9 % Sodium Chloride 250 ML IVPB SCH (12:01)
== END 2019-09-14 14:10 | disposition home or self-care (01) | DRG 192 ==
LOC: EMEROOGRE 00:28 → INPGRE 00:28 → EMEROOGRE 00:28 → INPGRE 02:00

== ENCOUNTER 2019-10-21 05:00 | Observation (INO) ==
[2019-10-21] MEDS ORDERED: Ipratropium/Albuterol Neb 3 ML ONE (05:03)
[2019-10-21] MEDS ORDERED: methylPREDNISolone 125 MG/2 ML VIAL IVP ONE (05:19)
[2019-10-21] MEDS ORDERED: Ipratropium/Albuterol Neb 3 ML IH ONE ×3 (05:19→05:22)
[2019-10-21] MEDS: Albuterol 2.5 MG/3 ML NEBULIZER IH SCH (05:28)
[2019-10-21 05:34] LABS: Basophils # 0.2 K/mcL (0.0-0.2); Basophils % 1.4 %; Eosinophils # 1.2 K/mcL (0.0-0.6); Eosinophils % 8.7 %; Hemoglobin 15.3 g/dL (11.5-15.4); Immature Granulocytes % 0.2 % (0-4); Lymphocytes % 34.7 %; Mean Corpuscular Hemoglobin 31.7 pg (28.0-33.3); Mean Corpuscular Volume 93.4 fL (83.0-100.0); Mean Platelet Volume 9.8 fL (9.4-12.4); Monocytes # 0.9 K/mcL (0.0-1.3); Monocytes % 6.8 %; Neutrophils # 6.6 K/mcL (1.6-8.9); Platelet Count 301 K/mcL (140-400); Red Blood Count 4.82 M/mcL (3.82-4.97); Red Cell Distribution Width 13.2 % (11.5-14.5); Segmented Neutrophils % 48.2 %; White Blood Count 13.7 K/mcL (4.3-11.1)
[2019-10-21 05:38] LABS: Lymphocytes # 4.8 K/mcL (0.6-4.6)
[2019-10-21 05:50] LABS: Troponin I < 0.03 ng/mL (< 0.04)
[2019-10-21 05:51] LABS: Alanine Aminotransferase 12 Units/L (7-52); Albumin 4.6 g/dL (3.5-5.7); Albumin/Globulin Ratio 1.6 (1.1-2.2); Alkaline Phosphatase 101 Units/L (34-104); Aspartate Amino Transferase 18 Units/L (13-39); BUN/Creatinine Ratio 18 (6-26); Bilirubin,Total 0.6 mg/dL (0.3-1.0); Blood Urea Nitrogen 13 mg/dL (8-23); Calcium 9.9 mg/dL (8.6-10.3); Carbon Dioxide 25 mEq/L (23-29); Chloride 100 mEq/L (98-107); Globulin 2.8 g/dL (2.4-3.5); Glucose 158 mg/dL (70-105); Magnesium 2.2 mg/dL (1.6-2.6); Osmolality,Calculated 279 (280-300); Potassium 4.3 mEq/L (3.5-5.1); Sodium 133 mEq/L (136-145); Total Protein 7.4 g/dL (6.4-8.9); eGFR For African Americans > 60 (> 60); eGFR For Non-African Americans > 60 (> 60)
[2019-10-21] MEDS ORDERED: Isovue-370 500 ML BOTTLE IVP ONE (06:01)
[2019-10-21 06:16] LABS: Prothrombin Time 11.2 Seconds (9.4-12.1)
[2019-10-21 06:18] LABS: Activated Partial Thrombo Time 33.6 Seconds (26.0-36.0)
[2019-10-21] MEDS ORDERED: Acetaminophen 325 MG TABLET PO ONE (06:46)
[2019-10-21] MEDS ORDERED: Naloxone 0.4 MG/ML INJ IVP PRN (07:48)
[2019-10-21] MEDS ORDERED: Mag Hydrox/Al Hydrox/Simeth 30 ML UDC PO PRN (07:48)
[2019-10-21] MEDS ORDERED: Albuterol 2.5 MG/3 ML NEBULIZER IH PRN (07:48)
[2019-10-21] MEDS ORDERED: Ondansetron ODT 4 MG TAB.RAPDIS SL PRN (07:48)
[2019-10-21] MEDS: methylPREDNISolone 125 MG/2 ML VIAL IVP SCH ×3 (10:35→20:32)
[2019-10-21] MEDS: Multivit/Ca/Min/Fe/FA 1 TAB TABLET PO SCH (10:35)
[2019-10-21] MEDS: Aspirin 81 MG TAB.CHEW PO SCH (10:35)
[2019-10-21] MEDS: Lisinopril 20 MG TABLET PO SCH (10:35)
[2019-10-21] MEDS: Ipratropium/Albuterol Neb 3 ML IH PRN ×3 (11:41→20:32)
[2019-10-21] MEDS: Acetaminophen 325 MG TABLET PO PRN (20:32)
[2019-10-21] MEDS: Gabapentin 300 MG CAPSULE PO SCH (20:33)
[2019-10-22] MEDS: methylPREDNISolone 125 MG/2 ML VIAL IVP SCH ×4 (02:22→18:24)
[2019-10-22] MEDS: Acetaminophen 325 MG TABLET PO PRN (05:49)
[2019-10-22] MEDS: *HR* Enoxaparin 40 MG/0.4 ML SYRINGE SQ SCH (05:49)
[2019-10-22 05:58] LABS: Basophils % 0.1 %; Hematocrit 38.6 % (35.3-44.9); Hemoglobin 13.1 g/dL (11.5-15.4); Immature Granulocytes % 0.5 % (0-4); Lymphocytes # 1.2 K/mcL (0.6-4.6); Lymphocytes % 7.2 %; Mean Corpuscular HGB Conc 33.9 g/dL (31.6-35.5); Mean Corpuscular Hemoglobin 31.5 pg (28.0-33.3); Mean Corpuscular Volume 92.8 fL (83.0-100.0); Mean Platelet Volume 9.8 fL (9.4-12.4); Monocytes # 0.4 K/mcL (0.0-1.3); Monocytes % 2.6 %; Neutrophils # 14.9 K/mcL (1.6-8.9); Platelet Count 247 K/mcL (140-400); Red Blood Count 4.16 M/mcL (3.82-4.97); Red Cell Distribution Width 13.2 % (11.5-14.5); Segmented Neutrophils % 89.6 %; White Blood Count 16.6 K/mcL (4.3-11.1)
[2019-10-22] MEDS: Ipratropium/Albuterol Neb 3 ML IH PRN ×3 (09:03→21:34)
[2019-10-22] MEDS: Lisinopril 20 MG TABLET PO SCH (09:18)
[2019-10-22] MEDS: Aspirin 81 MG TAB.CHEW PO SCH (09:18)
[2019-10-22] MEDS: Multivit/Ca/Min/Fe/FA 1 TAB TABLET PO SCH (09:18)
[2019-10-22] MEDS ORDERED: Ketorolac 30 MG/ML VIAL IVP ONE (14:27)
[2019-10-22 15:00] LABS: Bilirubin,Urine Negative (Negative); Blood,Urine Negative (Negative); Clarity,Urine Clear (Clear); Color,Urine Yellow (Yellow); Glucose,Urine (UA) Normal (Normal); Ketones,Urine Negative (Negative); Leukocyte Esterase,Urine Trace (Negative); Nitrite,Urine Negative (Negative); Protein,Urine Negative (Neg-Trace); Urobilinogen,Urine Normal (Normal)
[2019-10-22 15:04] LABS: Bacteria,Urine Few per hpf (None-Few); WBC,Urine 0-3 per hpf (0-3)
[2019-10-22] MEDS: Piperacillin/Tazobactam 3.375 GM in 0.9 % Sodium Chloride Mini Bag 100 ML IVPB SCH (18:23)
[2019-10-22] MEDS: Gabapentin 300 MG CAPSULE PO SCH (21:25)
[2019-10-22] MEDS: Ketorolac 15 MG/ML VIAL IVP PRN (21:25)
[2019-10-22] MEDS: Famotidine 20 MG TABLET PO SCH (21:25)
[2019-10-23] MEDS: Piperacillin/Tazobactam 3.375 GM in 0.9 % Sodium Chloride Mini Bag 100 ML IVPB SCH ×4 (00:01→23:36)
[2019-10-23] MEDS: methylPREDNISolone 125 MG/2 ML VIAL IVP SCH ×2 (02:04→09:06)
[2019-10-23 05:44] LABS: Hematocrit 36.6 % (35.3-44.9); Hemoglobin 12.6 g/dL (11.5-15.4); Mean Corpuscular HGB Conc 34.4 g/dL (31.6-35.5); Mean Corpuscular Hemoglobin 31.9 pg (28.0-33.3); Mean Corpuscular Volume 92.7 fL (83.0-100.0); Mean Platelet Volume 9.8 fL (9.4-12.4); Platelet Count 221 K/mcL (140-400); Red Blood Count 3.95 M/mcL (3.82-4.97); White Blood Count 18.9 K/mcL (4.3-11.1)
[2019-10-23 05:58] LABS: BUN/Creatinine Ratio 27 (6-26); Blood Urea Nitrogen 21 mg/dL (8-23); Calcium 9.4 mg/dL (8.6-10.3); Carbon Dioxide 25 mEq/L (23-29); Chloride 101 mEq/L (98-107); Glucose 161 mg/dL (70-105); Osmolality,Calculated 278 (280-300); Potassium 4.3 mEq/L (3.5-5.1); Sodium 131 mEq/L (136-145); eGFR For African Americans > 60 (> 60); eGFR For Non-African Americans > 60 (> 60)
[2019-10-23] MEDS: *HR* Enoxaparin 40 MG/0.4 ML SYRINGE SQ SCH (06:10)
[2019-10-23] MEDS: Multivit/Ca/Min/Fe/FA 1 TAB TABLET PO SCH (09:05)
[2019-10-23] MEDS: Lisinopril 20 MG TABLET PO SCH (09:05)
[2019-10-23] MEDS: Famotidine 20 MG TABLET PO SCH ×2 (09:05→21:17)
[2019-10-23] MEDS: Aspirin 81 MG TAB.CHEW PO SCH (09:05)
[2019-10-23] MEDS: Ipratropium/Albuterol Neb 3 ML IH PRN (12:11)
[2019-10-23] MEDS: Ketorolac 15 MG/ML VIAL IVP PRN ×2 (15:24→21:17)
[2019-10-23] MEDS: MethylPREDNISolone 40 MG/ML VIAL IVP SCH (16:50)
[2019-10-23] MEDS: Gabapentin 300 MG CAPSULE PO SCH (21:17)
[2019-10-24] MEDS: MethylPREDNISolone 40 MG/ML VIAL IVP SCH (05:34)
[2019-10-24] MEDS: *HR* Enoxaparin 40 MG/0.4 ML SYRINGE SQ SCH (05:34)
[2019-10-24] MEDS: Ipratropium/Albuterol Neb 3 ML IH PRN ×2 (07:34→11:48)
[2019-10-24 07:45] VITALS: BP 157/77
[2019-10-24] MEDS: Aspirin 81 MG TAB.CHEW PO SCH (08:30)
[2019-10-24] MEDS: Lisinopril 20 MG TABLET PO SCH (08:30)
[2019-10-24] MEDS: Multivit/Ca/Min/Fe/FA 1 TAB TABLET PO SCH (08:30)
[2019-10-24] MEDS: Famotidine 20 MG TABLET PO SCH (08:30)
[2019-10-24] MEDS: Piperacillin/Tazobactam 3.375 GM in 0.9 % Sodium Chloride Mini Bag 100 ML IVPB SCH (09:35)
== END 2019-10-24 13:50 | disposition home or self-care (01) ==
LOC: EMEROOGRE 05:00 → INPGRE 05:00 → SUATTDRO 07:51 → INPGRE 08:25
PROVIDERS: ADMIT Internal Medicine; ATTEND Family Medicine

== ENCOUNTER 2019-12-29 21:16 | Inpatient (IN) ==
[2019-12-29] MEDS ORDERED: Ipratropium/Albuterol Neb 3 ML ONE ×3 (21:18→23:18)
[2019-12-29] MEDS ORDERED: methylPREDNISolone 125 MG/2 ML VIAL IVP ONE (21:32)
[2019-12-29] MEDS ORDERED: Ipratropium/Albuterol Neb 3 ML IH ONE (21:32)
[2019-12-29] MEDS ORDERED: 0.9 % Sodium Chloride 1,000 ML IVC ONE (21:32)
[2019-12-29] MEDS ORDERED: Levalbuterol Neb 1.25 MG/3 ML IH ONE (21:34)
[2019-12-29 21:57] LABS: Basophils # 0.2 K/mcL (0.0-0.2); Basophils % 0.6 %; Eosinophils # 0.1 K/mcL (0.0-0.6); Eosinophils % 0.3 %; Hematocrit 39.9 % (35.3-44.9); Hemoglobin 13.6 g/dL (11.5-15.4); Immature Granulocytes % 2.9 % (0-4); Lymphocytes # 3.5 K/mcL (0.6-4.6); Lymphocytes % 11.5 %; Mean Corpuscular HGB Conc 34.1 g/dL (31.6-35.5); Mean Corpuscular Hemoglobin 31.4 pg (28.0-33.3); Mean Corpuscular Volume 92.1 fL (83.0-100.0); Mean Platelet Volume 8.9 fL (9.4-12.4); Monocytes % 6.5 %; Neutrophils # 23.9 K/mcL (1.6-8.9); Platelet Count 418 K/mcL (140-400); Red Blood Count 4.33 M/mcL (3.82-4.97); Red Cell Distribution Width 13.9 % (11.5-14.5); Segmented Neutrophils % 78.2 %
[2019-12-29 22:00] LABS: White Blood Count 30.6 K/mcL (4.3-11.1)
[2019-12-29 22:06] LABS: Albumin 3.9 g/dL (3.5-5.7); Albumin/Globulin Ratio 1.4 (1.1-2.2); Bilirubin,Direct 0.1 mg/dL (0.0-0.2); Bilirubin,Indirect 0.3 mg/dL (0.0-1.0); Bilirubin,Total 0.4 mg/dL (0.3-1.0); Globulin 2.7 g/dL (2.4-3.5); Total Protein 6.6 g/dL (6.4-8.9)
[2019-12-29 22:07] LABS: BUN/Creatinine Ratio 10 (6-26); Blood Urea Nitrogen 7 mg/dL (8-23); Carbon Dioxide 28 mEq/L (23-29); Chloride 96 mEq/L (98-107); Glucose 103 mg/dL (70-105); Osmolality,Calculated 274 (280-300); Potassium 3.8 mEq/L (3.5-5.1); Sodium 133 mEq/L (136-145); eGFR For African Americans > 60 (> 60); eGFR For Non-African Americans > 60 (> 60)
[2019-12-29] MEDS ORDERED: Isovue-370 500 ML BOTTLE IVP ONE ×2 (23:05→23:18)
[2019-12-29] MEDS ORDERED: Ondansetron 4 MG/2 ML VIAL IVP PRN (23:18)
[2019-12-29] MEDS ORDERED: Naloxone 0.4 MG/ML INJ IVP PRN (23:18)
[2019-12-29] MEDS ORDERED: levoFLOXacin 500 MG/100 ML 500 MG/100 ML BAG IVPB SCH (23:30)
[2019-12-30] MEDS: 0.9 % Sodium Chloride 1,000 ML IVC SCH ×2 (01:15→10:05)
[2019-12-30] MEDS: *HR* Heparin 5,000 UNIT/ML VIAL SQ SCH ×2 (05:38→16:59)
[2019-12-30 06:05] LABS: Hematocrit 33.9 % (35.3-44.9); Hemoglobin 11.4 g/dL (11.5-15.4); Mean Corpuscular HGB Conc 33.6 g/dL (31.6-35.5); Mean Corpuscular Hemoglobin 31.2 pg (28.0-33.3); Mean Corpuscular Volume 92.9 fL (83.0-100.0); Mean Platelet Volume 8.8 fL (9.4-12.4); Platelet Count 355 K/mcL (140-400); Red Blood Count 3.65 M/mcL (3.82-4.97); Red Cell Distribution Width 13.9 % (11.5-14.5); White Blood Count 29.4 K/mcL (4.3-11.1)
[2019-12-30] MEDS: Albuterol 2.5 MG/3 ML NEBULIZER IH PRN ×3 (06:07→16:13)
[2019-12-30 06:15] LABS: BUN/Creatinine Ratio 10 (6-26); Blood Urea Nitrogen 6 mg/dL (8-23); Carbon Dioxide 27 mEq/L (23-29); Chloride 100 mEq/L (98-107); Glucose 166 mg/dL (70-105); Osmolality,Calculated 275 (280-300); Potassium 4.6 mEq/L (3.5-5.1); Sodium 132 mEq/L (136-145); eGFR For African Americans > 60 (> 60); eGFR For Non-African Americans > 60 (> 60)
[2019-12-30] MEDS ORDERED: Budesonide/Formoterol 160/4.5 1 PUFF INH IH ONE (07:39)
[2019-12-30] MEDS: Budesonide/Formoterol 160/4.5 1 PUFF INH IH SCH ×2 (07:42→19:42)
[2019-12-30] MEDS: Multivit/Ca/Min/Fe/FA 1 TAB TABLET PO SCH (09:55)
[2019-12-30] MEDS: predniSONE 20 MG TABLET PO SCH (09:55)
[2019-12-30] MEDS: Aspirin 81 MG TAB.CHEW PO SCH (09:55)
[2019-12-30] MEDS: Lisinopril 20 MG TABLET PO SCH (09:55)
[2019-12-30 13:26] LABS: Bilirubin,Urine Negative (Negative); Blood,Urine Negative (Negative); Clarity,Urine Clear (Clear); Color,Urine Yellow (Yellow); Glucose,Urine (UA) Normal (Normal); Ketones,Urine Negative (Negative); Leukocyte Esterase,Urine Trace (Negative); Nitrite,Urine Negative (Negative); Protein,Urine Negative (Neg-Trace); Urobilinogen,Urine Normal (Normal)
[2019-12-30 13:41] LABS: Bacteria,Urine Few per hpf (None-Few); Squamous Epithelial Cell,Urine Moderate per lpf (None-Few); WBC,Urine 0-3 per hpf (0-3)
[2019-12-30] MEDS ORDERED: Ketorolac 30 MG/ML VIAL IVP ONE (16:37)
[2019-12-30] MEDS ORDERED: Ketorolac 15 MG/ML VIAL IVP PRN (16:37)
[2019-12-30] MEDS: Ipratropium/Albuterol Neb 3 ML IH PRN (19:45)
[2019-12-30] MEDS ORDERED: Melatonin 3 MG TABLET PO ONE (21:00)
[2019-12-30] MEDS: Gabapentin 300 MG CAPSULE PO SCH (21:08)
[2019-12-30] MEDS: Acetaminophen 325 MG TABLET PO PRN (21:09)
[2019-12-30 23:09] LABS: Adenovirus Not Detected (Not Detect); Bordetella Pertussis Not Detected (Not Detect); Chlamydophila pneumoniae Not Detected (Not Detect); Coronavirus 229E DETECTED (Not Detect); Coronavirus HKU1 Not Detected (Not Detect); Coronavirus NL63 Not Detected (Not Detect); Coronavirus OC43 Not Detected (Not Detect); Human Metapneumovirus Not Detected (Not Detect); Human Rhinovirus/Enterovirus Not Detected (Not Detect); Influenza A Subtype 2009 H1 Not Detected (Not Detect); Influenza B Not Detected (Not Detect); Mycoplasma pneumoniae Not Detected (Not Detect); Parainfluenza Virus 1 Not Detected (Not Detect); Parainfluenza Virus 2 Not Detected (Not Detect); Parainfluenza Virus 3 Not Detected (Not Detect); Parainfluenza Virus 4 Not Detected (Not Detect); Respiratory Syncytial Virus Not Detected (Not Detect)
[2019-12-31] MEDS: *HR* Heparin 5,000 UNIT/ML VIAL SQ SCH ×2 (04:42→17:33)
[2019-12-31] MEDS: Lisinopril 20 MG TABLET PO SCH (07:58)
[2019-12-31] MEDS: Multivit/Ca/Min/Fe/FA 1 TAB TABLET PO SCH (07:58)
[2019-12-31] MEDS: predniSONE 20 MG TABLET PO SCH (07:58)
[2019-12-31] MEDS: Aspirin 81 MG TAB.CHEW PO SCH (07:58)
[2019-12-31] MEDS: levoFLOXacin 750 MG/150 ML 750 MG/150 ML BAG IVPB SCH (07:59)
[2019-12-31] MEDS: Ipratropium/Albuterol Neb 3 ML IH PRN ×3 (09:27→16:36)
[2019-12-31] MEDS: Budesonide/Formoterol 160/4.5 1 PUFF INH IH SCH ×2 (09:30→20:20)
[2019-12-31 10:33] LABS: Hematocrit 35.7 % (35.3-44.9); Mean Corpuscular HGB Conc 33.6 g/dL (31.6-35.5); Mean Corpuscular Hemoglobin 31.9 pg (28.0-33.3); Mean Corpuscular Volume 94.9 fL (83.0-100.0); Platelet Count 388 K/mcL (140-400); Red Blood Count 3.76 M/mcL (3.82-4.97); Red Cell Distribution Width 13.9 % (11.5-14.5)
[2019-12-31 10:39] LABS: BUN/Creatinine Ratio 19 (6-26); Blood Urea Nitrogen 15 mg/dL (8-23); Calcium 9.5 mg/dL (8.6-10.3); Carbon Dioxide 29 mEq/L (23-29); Chloride 101 mEq/L (98-107); Glucose 82 mg/dL (70-105); Magnesium 2.1 mg/dL (1.6-2.6); Osmolality,Calculated 280 (280-300); Potassium 5.1 mEq/L (3.5-5.1); Sodium 135 mEq/L (136-145); eGFR For African Americans > 60 (> 60); eGFR For Non-African Americans > 60 (> 60)
[2019-12-31] MEDS ORDERED: MOM Conc 10 ML UD.LIQ PO PRN (17:03)
[2019-12-31] MEDS: Gabapentin 300 MG CAPSULE PO SCH (20:39)
[2020-01-01] MEDS: *HR* Heparin 5,000 UNIT/ML VIAL SQ SCH ×2 (05:39→17:51)
[2020-01-01] MEDS: Budesonide/Formoterol 160/4.5 1 PUFF INH IH SCH ×2 (07:49→20:52)
[2020-01-01] MEDS: Albuterol 2.5 MG/3 ML NEBULIZER IH PRN (07:54)
[2020-01-01] MEDS: Aspirin 81 MG TAB.CHEW PO SCH (09:51)
[2020-01-01] MEDS: levoFLOXacin 750 MG/150 ML 750 MG/150 ML BAG IVPB SCH (09:51)
[2020-01-01] MEDS: predniSONE 20 MG TABLET PO SCH (09:51)
[2020-01-01] MEDS: Lisinopril 20 MG TABLET PO SCH (09:51)
[2020-01-01] MEDS: Sennosides 8.6 MG TABLET PO SCH (09:51)
[2020-01-01] MEDS: Multivit/Ca/Min/Fe/FA 1 TAB TABLET PO SCH (09:51)
[2020-01-01 11:32] LABS: Hematocrit 37.2 % (35.3-44.9); Hemoglobin 12.4 g/dL (11.5-15.4); Mean Corpuscular HGB Conc 33.3 g/dL (31.6-35.5); Mean Corpuscular Hemoglobin 31.4 pg (28.0-33.3); Mean Corpuscular Volume 94.2 fL (83.0-100.0); Mean Platelet Volume 8.4 fL (9.4-12.4); Platelet Count 357 K/mcL (140-400); Red Blood Count 3.95 M/mcL (3.82-4.97); Red Cell Distribution Width 13.9 % (11.5-14.5); White Blood Count 20.1 K/mcL (4.3-11.1)
[2020-01-01] MEDS: Ipratropium/Albuterol Neb 3 ML IH PRN ×2 (13:56→20:51)
[2020-01-01] MEDS ORDERED: Melatonin 3 MG TABLET PO SCH (21:00)
[2020-01-01] MEDS: Acetaminophen 325 MG TABLET PO PRN (21:40)
[2020-01-01] MEDS: Gabapentin 300 MG CAPSULE PO SCH (21:40)
[2020-01-02] MEDS: *HR* Heparin 5,000 UNIT/ML VIAL SQ SCH (06:38)
[2020-01-02] MEDS: Albuterol 2.5 MG/3 ML NEBULIZER IH PRN (07:28)
[2020-01-02] MEDS: Budesonide/Formoterol 160/4.5 1 PUFF INH IH SCH (07:32)
[2020-01-02 07:56] LABS: Hematocrit 38.3 % (35.3-44.9); Hemoglobin 12.9 g/dL (11.5-15.4); Mean Corpuscular HGB Conc 33.7 g/dL (31.6-35.5); Mean Corpuscular Hemoglobin 30.9 pg (28.0-33.3); Mean Corpuscular Volume 91.6 fL (83.0-100.0); Mean Platelet Volume 8.8 fL (9.4-12.4); Platelet Count 371 K/mcL (140-400); Red Blood Count 4.18 M/mcL (3.82-4.97); Red Cell Distribution Width 13.7 % (11.5-14.5); White Blood Count 18.4 K/mcL (4.3-11.1)
[2020-01-02] MEDS: predniSONE 20 MG TABLET PO SCH (08:23)
[2020-01-02] MEDS: Aspirin 81 MG TAB.CHEW PO SCH (08:24)
[2020-01-02] MEDS: Multivit/Ca/Min/Fe/FA 1 TAB TABLET PO SCH (08:24)
[2020-01-02] MEDS: Lisinopril 20 MG TABLET PO SCH (08:24)
[2020-01-02] MEDS: Sennosides 8.6 MG TABLET PO SCH (08:24)
[2020-01-02 08:29] LABS: BUN/Creatinine Ratio 22 (6-26); Blood Urea Nitrogen 15 mg/dL (8-23); Calcium 9.3 mg/dL (8.6-10.3); Carbon Dioxide 29 mEq/L (23-29); Chloride 99 mEq/L (98-107); Glucose 76 mg/dL (70-105); Magnesium 2.3 mg/dL (1.6-2.6); Osmolality,Calculated 276 (280-300); Potassium 3.5 mEq/L (3.5-5.1); Sodium 133 mEq/L (136-145); eGFR For African Americans > 60 (> 60); eGFR For Non-African Americans > 60 (> 60)
[2020-01-02] MEDS ORDERED: levoFLOXacin 750 MG TABLET PO SCH (09:00)
[2020-01-02 14:09] VITALS: BP 144/76
== END 2020-01-02 14:15 | disposition home or self-care (01) ==
LOC: INPGRE 21:16 → EMEROOGRE 21:16 → INPGRE 23:47
PROVIDERS: ADMIT Family Medicine; ATTEND Family Medicine

== ENCOUNTER 2020-06-29 02:32 | Observation (INO) ==
[~2020-06-29 02:32] MED LIST: Ipratropium/Albuterol Neb 3 ML ONE
[2020-06-29] MEDS: Ipratropium/Albuterol Neb 3 ML IH ONE (02:44)
[2020-06-29] MEDS ORDERED: 0.9 % Sodium Chloride 1,000 ML IVC SCH (02:45)
[2020-06-29] MEDS ORDERED: Ipratropium/Albuterol Neb 3 ML IH ONE (02:47)
[2020-06-29 03:11] LABS: Basophils # 0.1 K/mcL (0.0-0.2); Eosinophils # 0.7 K/mcL (0.0-0.6); Eosinophils % 5.6 %; Hematocrit 38.7 % (35.3-44.9); Hemoglobin 13.4 g/dL (11.5-15.4); Immature Granulocytes % 0.3 % (0-4); Lymphocytes # 2.3 K/mcL (0.6-4.6); Lymphocytes % 17.9 %; Mean Corpuscular HGB Conc 34.6 g/dL (31.6-35.5); Mean Corpuscular Hemoglobin 32.4 pg (28.0-33.3); Mean Corpuscular Volume 93.5 fL (83.0-100.0); Mean Platelet Volume 9.5 fL (9.4-12.4); Monocytes # 1.2 K/mcL (0.0-1.3); Monocytes % 9.3 %; Platelet Count 269 K/mcL (140-400); Red Blood Count 4.14 M/mcL (3.82-4.97); Red Cell Distribution Width 13.8 % (11.5-14.5); Segmented Neutrophils % 65.9 %; White Blood Count 12.7 K/mcL (4.3-11.1)
[2020-06-29 03:13] LABS: Neutrophils # 8.4 K/mcL (1.6-8.9)
[2020-06-29 03:15] LABS: Prothrombin Time 11.1 Seconds (9.4-12.1)
[2020-06-29 03:18] LABS: Activated Partial Thrombo Time 33.1 Seconds (26.0-36.0)
[2020-06-29 03:23] LABS: BUN/Creatinine Ratio 13 (6-26); Blood Urea Nitrogen 11 mg/dL (8-23); Calcium 9.8 mg/dL (8.6-10.3); Carbon Dioxide 28 mEq/L (23-29); Chloride 100 mEq/L (98-107); Creatine Kinase 76 Units/L (30-223); Glucose 92 mg/dL (70-105); Osmolality,Calculated 277 (280-300); Potassium 4.4 mEq/L (3.5-5.1); Sodium 134 mEq/L (136-145); eGFR For African Americans > 60 (> 60); eGFR For Non-African Americans > 60 (> 60)
[2020-06-29 03:26] LABS: Troponin I < 0.03 ng/mL (< 0.04)
[2020-06-29] MEDS ORDERED: Naloxone 0.4 MG/ML INJ IVP PRN (06:43)
[2020-06-29] MEDS: Aspirin 81 MG TAB.CHEW PO SCH (10:21)
[2020-06-29] MEDS: Multivit/Ca/Min/Fe/FA 1 TAB TABLET PO SCH (10:21)
[2020-06-29] MEDS: lisinopriL 20 MG TABLET PO SCH (10:21)
[2020-06-29] MEDS: MethylPREDNISolone 40 MG/ML VIAL IVP SCH ×3 (10:21→21:35)
[2020-06-29] MEDS: 0.9 % Sodium Chloride 1,000 ML IVC SCH ×3 (12:10→21:35)
[2020-06-29] MEDS: Ipratropium/Albuterol Neb 3 ML IH SCH ×3 (12:15→16:18)
[2020-06-29] MEDS: polyethylene glycoL 3350 17 GM POWD.PACK PO SCH (12:15)
[2020-06-29] MEDS: levoFLOXacin 750 MG/150 ML 750 MG/150 ML BAG IVPB SCH (14:02)
[2020-06-29] MEDS: tiZANidine 4 MG TABLET PO PRN ×2 (15:40→21:49)
[2020-06-29] MEDS: Albuterol 2.5 MG/3 ML NEBULIZER IH PRN ×2 (19:50→23:45)
[2020-06-30] MEDS: Ipratropium/Albuterol Neb 3 ML IH SCH ×4 (04:46→22:04)
[2020-06-30 05:06] LABS: Basophils % 0.1 %; Hematocrit 34.6 % (35.3-44.9); Hemoglobin 11.9 g/dL (11.5-15.4); Immature Granulocytes % 0.5 % (0-4); Lymphocytes # 0.9 K/mcL (0.6-4.6); Lymphocytes % 7.6 %; Mean Corpuscular HGB Conc 34.4 g/dL (31.6-35.5); Mean Corpuscular Hemoglobin 32.2 pg (28.0-33.3); Mean Corpuscular Volume 93.5 fL (83.0-100.0); Mean Platelet Volume 9.6 fL (9.4-12.4); Monocytes # 0.5 K/mcL (0.0-1.3); Monocytes % 4.3 %; Neutrophils # 10.5 K/mcL (1.6-8.9); Platelet Count 233 K/mcL (140-400); Red Cell Distribution Width 13.5 % (11.5-14.5); Segmented Neutrophils % 87.5 %
[2020-06-30 05:23] LABS: BUN/Creatinine Ratio 16 (6-26); Blood Urea Nitrogen 9 mg/dL (8-23); Calcium 8.7 mg/dL (8.6-10.3); Carbon Dioxide 24 mEq/L (23-29); Chloride 104 mEq/L (98-107); Glucose 146 mg/dL (70-105); Osmolality,Calculated 281 (280-300); Potassium 3.8 mEq/L (3.5-5.1); Sodium 135 mEq/L (136-145); eGFR For African Americans > 60 (> 60); eGFR For Non-African Americans > 60 (> 60)
[2020-06-30] MEDS: 0.9 % Sodium Chloride 1,000 ML IVC SCH (05:38)
[2020-06-30] MEDS ORDERED: *HR* HYDROcodone/Acet 5/325 mg TABLET PO ONE (09:13)
[2020-06-30] MEDS: Multivit/Ca/Min/Fe/FA 1 TAB TABLET PO SCH (09:17)
[2020-06-30] MEDS: polyethylene glycoL 3350 17 GM POWD.PACK PO SCH (09:18)
[2020-06-30] MEDS: levoFLOXacin 750 MG/150 ML 750 MG/150 ML BAG IVPB SCH (09:18)
[2020-06-30] MEDS: Aspirin 81 MG TAB.CHEW PO SCH (09:18)
[2020-06-30] MEDS: MethylPREDNISolone 40 MG/ML VIAL IVP SCH ×3 (09:18→21:04)
[2020-06-30] MEDS: lisinopriL 20 MG TABLET PO SCH (09:18)
[2020-06-30] MEDS ORDERED: Isovue-370 500 ML BOTTLE IVP ONE (09:33)
[2020-06-30] MEDS ORDERED: 0.9 % Sodium Chloride 1,000 ML IVC SCH (11:00)
[2020-06-30] MEDS: tiZANidine 4 MG TABLET PO PRN (21:04)
[2020-07-01] MEDS: Ipratropium/Albuterol Neb 3 ML IH SCH ×2 (04:09→10:46)
[2020-07-01 04:46] LABS: Basophils % 0.1 %; Hematocrit 35.3 % (35.3-44.9); Hemoglobin 12.2 g/dL (11.5-15.4); Immature Granulocytes % 0.6 % (0-4); Lymphocytes # 1.3 K/mcL (0.6-4.6); Lymphocytes % 9.1 %; Mean Corpuscular HGB Conc 34.6 g/dL (31.6-35.5); Mean Corpuscular Hemoglobin 32.4 pg (28.0-33.3); Mean Corpuscular Volume 93.6 fL (83.0-100.0); Mean Platelet Volume 9.4 fL (9.4-12.4); Monocytes # 0.6 K/mcL (0.0-1.3); Monocytes % 4.1 %; Neutrophils # 12.1 K/mcL (1.6-8.9); Platelet Count 259 K/mcL (140-400); Red Blood Count 3.77 M/mcL (3.82-4.97); Red Cell Distribution Width 13.6 % (11.5-14.5); Segmented Neutrophils % 86.1 %; White Blood Count 14.1 K/mcL (4.3-11.1)
[2020-07-01 05:29] LABS: BUN/Creatinine Ratio 16 (6-26); Blood Urea Nitrogen 10 mg/dL (8-23); Calcium 9.2 mg/dL (8.6-10.3); Carbon Dioxide 26 mEq/L (23-29); Chloride 103 mEq/L (98-107); Glucose 130 mg/dL (70-105); Osmolality,Calculated 279 (280-300); Potassium 3.9 mEq/L (3.5-5.1); Sodium 134 mEq/L (136-145); eGFR For African Americans > 60 (> 60); eGFR For Non-African Americans > 60 (> 60)
[2020-07-01] MEDS: Multivit/Ca/Min/Fe/FA 1 TAB TABLET PO SCH (09:42)
[2020-07-01] MEDS: levoFLOXacin 750 MG/150 ML 750 MG/150 ML BAG IVPB SCH (09:42)
[2020-07-01] MEDS: Aspirin 81 MG TAB.CHEW PO SCH (09:42)
[2020-07-01] MEDS: lisinopriL 20 MG TABLET PO SCH (09:42)
[2020-07-01] MEDS: polyethylene glycoL 3350 17 GM POWD.PACK PO SCH (09:42)
[2020-07-01] MEDS: MethylPREDNISolone 40 MG/ML VIAL IVP SCH (09:48)
[2020-07-01] MEDS ORDERED: MethylPREDNISolone 40 MG/ML VIAL IVP ONE (09:52)
[2020-07-01] MEDS ORDERED: *HR* HYDROcodone/Acet 5/325 mg TABLET PO ONE (09:54)
[2020-07-01 11:34] VITALS: BP 151/81
[2020-07-01] MEDS ORDERED: MethylPREDNISolone 40 MG/ML VIAL IVP SCH (18:00)
== END 2020-07-01 13:29 | disposition home or self-care (01) ==
LOC: INPGRE 02:32 → EMEROOGRE 02:32 → SUATTDRO 06:01 → INPGRE 06:25
PROVIDERS: ADMIT Internal Medicine; ATTEND Family Medicine

== ENCOUNTER 2020-08-29 22:52 | Observation (INO) ==
[2020-08-29] MEDS ORDERED: Ipratropium/Albuterol Neb 3 ML ONE (22:59)
[2020-08-29] MEDS ORDERED: Ipratropium/Albuterol Neb 3 ML IH ONE (23:11)
[2020-08-29 23:23] LABS: Basophils # 0.1 K/mcL (0.0-0.2); Basophils % 1.2 %; Eosinophils # 1.8 K/mcL (0.0-0.6); Eosinophils % 14.9 %; Hematocrit 38.8 % (35.3-44.9); Hemoglobin 13.1 g/dL (11.5-15.4); Immature Granulocytes % 0.3 % (0-4); Lymphocytes # 3.2 K/mcL (0.6-4.6); Lymphocytes % 27.3 %; Mean Corpuscular HGB Conc 33.8 g/dL (31.6-35.5); Mean Corpuscular Hemoglobin 31.9 pg (28.0-33.3); Mean Corpuscular Volume 94.4 fL (83.0-100.0); Mean Platelet Volume 9.7 fL (9.4-12.4); Monocytes # 1.1 K/mcL (0.0-1.3); Monocytes % 9.2 %; Neutrophils # 5.6 K/mcL (1.6-8.9); Platelet Count 280 K/mcL (140-400); Red Blood Count 4.11 M/mcL (3.82-4.97); Red Cell Distribution Width 13.2 % (11.5-14.5); Segmented Neutrophils % 47.1 %; White Blood Count 11.8 K/mcL (4.3-11.1)
[2020-08-29] MEDS: Ipratropium/Albuterol Neb 3 ML IH ONE (23:24)
[2020-08-29 23:40] LABS: Alanine Aminotransferase 9 Units/L (7-52); Albumin 3.9 g/dL (3.5-5.7); Albumin/Globulin Ratio 1.4 (1.1-2.2); Alkaline Phosphatase 109 Units/L (34-104); Aspartate Amino Transferase 19 Units/L (13-39); Bilirubin,Indirect 0.4 mg/dL (0.0-1.0); Bilirubin,Total 0.4 mg/dL (0.3-1.0); Blood Urea Nitrogen 8 mg/dL (8-23); Calcium 9.4 mg/dL (8.6-10.3); Chloride 95 mEq/L (98-107); Globulin 2.7 g/dL (2.4-3.5); Glucose 85 mg/dL (70-105); Osmolality,Calculated 264 (280-300); Potassium 4.2 mEq/L (3.5-5.1); Sodium 128 mEq/L (136-145); Total Protein 6.6 g/dL (6.4-8.9)
[2020-08-29 23:53] LABS: VBG PCO2 50 mmHg (41-51); VBG PH 7.34 pH Units (7.32-7.42)
[2020-08-29 23:54] LABS: VBG HCO3 27 mEq/L (21-27); VBG PO2 118 mmHg (25-50)
[2020-08-29 23:54] LABS: BUN/Creatinine Ratio 10 (6-26); eGFR For African Americans > 60 (> 60); eGFR For Non-African Americans > 60 (> 60)
[2020-08-29 23:54] LABS: VBG HCO3 27 mEq/L (21-27); VBG PCO2 50 mmHg (41-51); VBG PH 7.34 pH Units (7.32-7.42); VBG PO2 118 mmHg (25-50)
[2020-08-29 23:55] LABS: Troponin I < 0.03 ng/mL (< 0.04)
[2020-08-30] MEDS ORDERED: Isovue-370 500 ML BOTTLE IVP ONE (00:09)
[2020-08-30 00:57] LABS: Carbon Dioxide 25 mEq/L (23-29)
[2020-08-30] MEDS ORDERED: levoFLOXacin 750 MG/150 ML 750 MG/150 ML BAG IVPB ONE (01:14)
[2020-08-30] MEDS ORDERED: Azithromycin 500 MG in D5% in Water 250 ML IVPB ONE (01:34)
[2020-08-30 04:29] LABS: Adenovirus Not Detected (Not Detect); Bordetella Pertussis Not Detected (Not Detect); Chlamydophila pneumoniae Not Detected (Not Detect); Coronavirus 229E Not Detected (Not Detect); Coronavirus HKU1 Not Detected (Not Detect); Coronavirus NL63 Not Detected (Not Detect); Coronavirus OC43 Not Detected (Not Detect); Human Metapneumovirus Not Detected (Not Detect); Human Rhinovirus/Enterovirus Not Detected (Not Detect); Influenza A Subtype 2009 H1 Not Detected (Not Detect); Influenza B Not Detected (Not Detect); Mycoplasma pneumoniae Not Detected (Not Detect); Parainfluenza Virus 1 Not Detected (Not Detect); Parainfluenza Virus 2 Not Detected (Not Detect); Parainfluenza Virus 3 Not Detected (Not Detect); Parainfluenza Virus 4 Not Detected (Not Detect); Respiratory Syncytial Virus Not Detected (Not Detect); SARS-CoV-2 Not Detected (Not Detect)
[2020-08-30] MEDS ORDERED: Naloxone 0.4 MG/ML INJ IVP PRN (05:12)
[2020-08-30] MEDS ORDERED: Acetaminophen 325 MG TABLET PO PRN (05:12)
[2020-08-30] MEDS ORDERED: Ipratropium/Albuterol Neb 3 ML IH ONE (05:12)
[2020-08-30] MEDS ORDERED: Ondansetron 4 MG/2 ML VIAL IVP PRN (05:12)
[2020-08-30] MEDS: Tiotropium 18 MCG inhalation IH SCH (06:12)
[2020-08-30] MEDS: Budesonide/Formoterol 160/4.5 1 PUFF INH IH SCH ×2 (06:14→20:36)
[2020-08-30] MEDS: *HR* Enoxaparin 40 MG/0.4 ML SYRINGE SQ SCH (07:13)
[2020-08-30] MEDS: Aspirin 81 MG TAB.CHEW PO SCH (09:17)
[2020-08-30] MEDS: methylPREDNISolone 125 MG/2 ML VIAL IVP SCH ×3 (09:17→23:37)
[2020-08-30] MEDS: Multivit/Ca/Min/Fe/FA 1 TAB TABLET PO SCH (09:17)
[2020-08-30] MEDS: lisinopriL 20 MG TABLET PO SCH (09:17)
[2020-08-30] MEDS: Gabapentin 300 MG CAPSULE PO SCH ×2 (09:17→20:58)
[2020-08-30] MEDS: Ipratropium/Albuterol Neb 3 ML IH ONE (11:50)
[2020-08-30] MEDS: Ipratropium/Albuterol Neb 3 ML IH SCH ×3 (16:12→22:09)
[2020-08-30] MEDS: cefTRIAXone 1,000 MG in Water for inj. (sterile) 10 ML IVP SCH (17:39)
[2020-08-30] MEDS: Azithromycin 250 MG in D5% in Water 250 ML IVPB SCH (23:38)
[2020-08-31] MEDS: Ipratropium/Albuterol Neb 3 ML IH SCH ×6 (00:15→20:43)
[2020-08-31] MEDS: *HR* Enoxaparin 40 MG/0.4 ML SYRINGE SQ SCH (05:00)
[2020-08-31 05:56] LABS: Alanine Aminotransferase 9 Units/L (7-52); Albumin/Globulin Ratio 1.5 (1.1-2.2); Alkaline Phosphatase 112 Units/L (34-104); Aspartate Amino Transferase 14 Units/L (13-39); BUN/Creatinine Ratio 21 (6-26); Bilirubin,Total 0.3 mg/dL (0.3-1.0); Blood Urea Nitrogen 14 mg/dL (8-23); Calcium 9.9 mg/dL (8.6-10.3); Carbon Dioxide 29 mEq/L (23-29); Chloride 97 mEq/L (98-107); Globulin 2.6 g/dL (2.4-3.5); Glucose 159 mg/dL (70-105); Osmolality,Calculated 278 (280-300); Potassium 5.1 mEq/L (3.5-5.1); Sodium 132 mEq/L (136-145); Total Protein 6.6 g/dL (6.4-8.9); eGFR For African Americans > 60 (> 60); eGFR For Non-African Americans > 60 (> 60)
[2020-08-31 07:05] LABS: Basophils % 0.2 %; Hematocrit 39.4 % (35.3-44.9); Hemoglobin 13.1 g/dL (11.5-15.4); Immature Granulocytes % 0.6 % (0-4); Lymphocytes % 9.4 %; Mean Corpuscular HGB Conc 33.2 g/dL (31.6-35.5); Mean Corpuscular Hemoglobin 31.7 pg (28.0-33.3); Mean Corpuscular Volume 95.4 fL (83.0-100.0); Monocytes # 0.3 K/mcL (0.0-1.3); Monocytes % 2.8 %; Neutrophils # 9.4 K/mcL (1.6-8.9); Platelet Count 283 K/mcL (140-400); Red Blood Count 4.13 M/mcL (3.82-4.97); White Blood Count 10.8 K/mcL (4.3-11.1)
[2020-08-31] MEDS: Multivit/Ca/Min/Fe/FA 1 TAB TABLET PO SCH (08:38)
[2020-08-31] MEDS: lisinopriL 20 MG TABLET PO SCH (08:38)
[2020-08-31] MEDS: Gabapentin 300 MG CAPSULE PO SCH ×2 (08:38→21:04)
[2020-08-31] MEDS: Aspirin 81 MG TAB.CHEW PO SCH (08:38)
[2020-08-31] MEDS: methylPREDNISolone 125 MG/2 ML VIAL IVP SCH ×2 (08:38→17:12)
[2020-08-31] MEDS: Budesonide/Formoterol 160/4.5 1 PUFF INH IH SCH ×2 (09:11→20:45)
[2020-08-31] MEDS: Tiotropium 18 MCG inhalation IH SCH (09:11)
[2020-08-31] MEDS: cefTRIAXone 1,000 MG in Water for inj. (sterile) 10 ML IVP SCH (17:15)
[2020-09-01] MEDS: Ipratropium/Albuterol Neb 3 ML IH SCH ×4 (00:22→12:57)
[2020-09-01] MEDS: Azithromycin 250 MG in D5% in Water 250 ML IVPB SCH (00:38)
[2020-09-01] MEDS: methylPREDNISolone 125 MG/2 ML VIAL IVP SCH ×2 (00:38→07:53)
[2020-09-01] MEDS: *HR* Enoxaparin 40 MG/0.4 ML SYRINGE SQ SCH (04:10)
[2020-09-01] MEDS: Aspirin 81 MG TAB.CHEW PO SCH (07:53)
[2020-09-01] MEDS: Multivit/Ca/Min/Fe/FA 1 TAB TABLET PO SCH (07:53)
[2020-09-01] MEDS: lisinopriL 20 MG TABLET PO SCH (07:53)
[2020-09-01] MEDS: Gabapentin 300 MG CAPSULE PO SCH (07:53)
[2020-09-01] MEDS: Tiotropium 18 MCG inhalation IH SCH (08:51)
[2020-09-01] MEDS: Budesonide/Formoterol 160/4.5 1 PUFF INH IH SCH (08:51)
[2020-09-01 11:14] VITALS: BP 150/84
== END 2020-09-01 14:11 | disposition home or self-care (01) ==
LOC: EMEROOGRE 22:52 → INTOOBSV 08-30 04:47 → INPGRE 08-30 04:47
PROVIDERS: ADMIT Internal Medicine; ATTEND Internal Medicine

== ENCOUNTER 2021-07-07 19:24 | Observation (INO) ==
[2021-07-07] MEDS ORDERED: Ipratropium/Albuterol Neb 3 ML IH ONE ×3 (19:56→21:34)
[2021-07-07 20:19] LABS: Basophils # 0.2 K/mcL (0.0-0.2); Basophils % 1.1 %; Eosinophils # 0.8 K/mcL (0.0-0.6); Eosinophils % 5.5 %; Hematocrit 39.3 % (35.3-44.9); Hemoglobin 13.1 g/dL (11.5-15.4); Immature Granulocytes % 0.4 % (0-4); Lymphocytes # 2.3 K/mcL (0.6-4.6); Lymphocytes % 16.8 %; Mean Corpuscular HGB Conc 33.3 g/dL (31.6-35.5); Mean Corpuscular Hemoglobin 30.7 pg (28.0-33.3); Mean Platelet Volume 9.5 fL (9.4-12.4); Monocytes # 0.8 K/mcL (0.0-1.3); Monocytes % 5.5 %; Neutrophils # 9.8 K/mcL (1.6-8.9); Platelet Count 290 K/mcL (140-400); Red Blood Count 4.27 M/mcL (3.82-4.97); Red Cell Distribution Width 13.7 % (11.5-14.5); Segmented Neutrophils % 70.7 %; White Blood Count 13.9 K/mcL (4.3-11.1)
[2021-07-07 20:25] LABS: Prothrombin Time 11.3 Seconds (9.4-12.1)
[2021-07-07 20:25] LABS: VBG HCO3 27 mEq/L (21-27); VBG PCO2 47 mmHg (41-51); VBG PH 7.37 pH Units (7.32-7.42); VBG PO2 70 mmHg (25-50)
[2021-07-07 20:27] LABS: Activated Partial Thrombo Time 34.4 Seconds (26.0-36.0)
[2021-07-07 20:34] LABS: Alanine Aminotransferase 9 Units/L (7-52); Albumin 4.3 g/dL (3.5-5.7); Albumin/Globulin Ratio 1.3 (1.1-2.2); Alkaline Phosphatase 144 Units/L (34-104); Aspartate Amino Transferase 15 Units/L (13-39); BUN/Creatinine Ratio 12 (6-26); Bilirubin,Direct 0.1 mg/dL (0.0-0.2); Bilirubin,Indirect 0.5 mg/dL (0.0-1.0); Bilirubin,Total 0.6 mg/dL (0.3-1.0); Blood Urea Nitrogen 7 mg/dL (8-23); Calcium 9.6 mg/dL (8.6-10.3); Carbon Dioxide 27 mEq/L (23-29); Chloride 99 mEq/L (98-107); Globulin 3.3 g/dL (2.4-3.5); Glucose 103 mg/dL (70-105); Osmolality,Calculated 274 (280-300); Potassium 3.8 mEq/L (3.5-5.1); Sodium 133 mEq/L (136-145); Total Protein 7.6 g/dL (6.4-8.9); eGFR For African Americans > 60 (> 60); eGFR For Non-African Americans > 60 (> 60)
[2021-07-07 20:36] LABS: Troponin I < 0.03 ng/mL (< 0.04)
[2021-07-07] MEDS ORDERED: Azithromycin 250 MG TABLET PO ONE (21:47)
[2021-07-07] MEDS ORDERED: Naloxone 0.4 MG/ML INJ IVP PRN (23:40)
[2021-07-08] MEDS: Ipratropium/Albuterol Neb 3 ML IH SCH ×6 (00:42→20:34)
[2021-07-08] MEDS: Acetaminophen 325 MG TABLET PO PRN ×2 (00:46→20:06)
[2021-07-08] MEDS: Tiotropium 10 INH DOSE IH SCH (07:11)
[2021-07-08] MEDS: Budesonide/Formoterol 160/4.5 1 PUFF INH IH PRN (07:12)
[2021-07-08] MEDS: lisinopriL 20 MG TABLET PO SCH (07:59)
[2021-07-08] MEDS: Aspirin 81 MG TAB.CHEW PO SCH (07:59)
[2021-07-08] MEDS: Multivit/Ca/Min/Fe/FA 1 TAB TABLET PO SCH (07:59)
[2021-07-08] MEDS: Azithromycin 250 MG TABLET PO SCH (07:59)
[2021-07-08] MEDS: *HR* Enoxaparin 40 MG/0.4 ML SYRINGE SQ SCH (08:00)
[2021-07-08] MEDS ORDERED: predniSONE 20 MG TABLET PO SCH (09:00)
[2021-07-08 13:55] LABS: Adenovirus Not Detected (Not Detect); Bordetella Pertussis Not Detected (Not Detect); Chlamydophila pneumoniae Not Detected (Not Detect); Coronavirus 229E Not Detected (Not Detect); Coronavirus HKU1 Not Detected (Not Detect); Coronavirus NL63 Not Detected (Not Detect); Coronavirus OC43 Not Detected (Not Detect); Human Metapneumovirus Not Detected (Not Detect); Human Rhinovirus/Enterovirus Not Detected (Not Detect); Influenza A Subtype 2009 H1 Not Detected (Not Detect); Influenza B Not Detected (Not Detect); Mycoplasma pneumoniae Not Detected (Not Detect); Parainfluenza Virus 1 Not Detected (Not Detect); Parainfluenza Virus 2 Not Detected (Not Detect); Parainfluenza Virus 3 Not Detected (Not Detect); Parainfluenza Virus 4 Not Detected (Not Detect); Respiratory Syncytial Virus Not Detected (Not Detect); SARS-CoV-2 Not Detected (Not Detect)
[2021-07-08] MEDS: MethylPREDNISolone 40 MG/ML VIAL IVP SCH (15:04)
[2021-07-08] MEDS ORDERED: Mirtazapine 15 MG TABLET PO SCH (21:00)
[2021-07-09] MEDS: MethylPREDNISolone 40 MG/ML VIAL IVP SCH ×2 (00:17→10:35)
[2021-07-09] MEDS: Ipratropium/Albuterol Neb 3 ML IH SCH ×4 (00:28→13:50)
[2021-07-09 06:51] VITALS: RESP 16
[2021-07-09] MEDS: Tiotropium 10 INH DOSE IH SCH (09:43)
[2021-07-09] MEDS: Budesonide/Formoterol 160/4.5 1 PUFF INH IH PRN (09:43)
[2021-07-09] MEDS: *HR* Enoxaparin 40 MG/0.4 ML SYRINGE SQ SCH (10:33)
[2021-07-09] MEDS: Multivit/Ca/Min/Fe/FA 1 TAB TABLET PO SCH (10:34)
[2021-07-09] MEDS: Aspirin 81 MG TAB.CHEW PO SCH (10:34)
[2021-07-09] MEDS: lisinopriL 20 MG TABLET PO SCH (10:34)
[2021-07-09] MEDS: Azithromycin 250 MG TABLET PO SCH (10:34)
[2021-07-09 16:19] VITALS: BP 148/74; PULSE 73; TEMP 97.7; O2SAT 95
== END 2021-07-09 16:50 | disposition home or self-care (01) ==
LOC: EMEROOGRE 19:24 → INPGRE 19:24 → SUATTDRO 22:50 → INPGRE 23:10
PROVIDERS: ADMIT Family Medicine; ATTEND Family Medicine

== ENCOUNTER 2021-07-26 14:31 | Inpatient (IN) ==
[2021-07-26] MEDS ORDERED: methylPREDNISolone 125 MG/2 ML VIAL IVP ONE (15:09)
[2021-07-26] MEDS ORDERED: Levalbuterol Neb 1.25 MG/3 ML IH ONE (15:09)
[2021-07-26] MEDS ORDERED: Ipratropium/Albuterol Neb 3 ML IH ONE (15:09)
[2021-07-26 15:21] LABS: Basophils # 0.1 K/mcL (0.0-0.2); Basophils % 0.5 %; Eosinophils # 0.3 K/mcL (0.0-0.6); Eosinophils % 1.7 %; Hematocrit 40.7 % (35.3-44.9); Hemoglobin 13.6 g/dL (11.5-15.4); Immature Granulocytes % 0.4 % (0-4); Lymphocytes # 0.9 K/mcL (0.6-4.6); Lymphocytes % 5.2 %; Mean Corpuscular HGB Conc 33.4 g/dL (31.6-35.5); Mean Corpuscular Hemoglobin 31.3 pg (28.0-33.3); Mean Corpuscular Volume 93.8 fL (83.0-100.0); Mean Platelet Volume 9.6 fL (9.4-12.4); Monocytes # 0.5 K/mcL (0.0-1.3); Monocytes % 3.2 %; Platelet Count 296 K/mcL (140-400); Red Blood Count 4.34 M/mcL (3.82-4.97); White Blood Count 16.9 K/mcL (4.3-11.1)
[2021-07-26 15:38] LABS: Troponin I < 0.03 ng/mL (< 0.04)
[2021-07-26 15:41] LABS: Alanine Aminotransferase 10 Units/L (7-52); Albumin 4.3 g/dL (3.5-5.7); Albumin/Globulin Ratio 1.3 (1.1-2.2); Alkaline Phosphatase 133 Units/L (34-104); Aspartate Amino Transferase 15 Units/L (13-39); BUN/Creatinine Ratio 13 (6-26); Bilirubin,Total 0.5 mg/dL (0.3-1.0); Blood Urea Nitrogen 8 mg/dL (8-23); Calcium 9.6 mg/dL (8.6-10.3); Carbon Dioxide 25 mEq/L (23-29); Chloride 98 mEq/L (98-107); Globulin 3.3 g/dL (2.4-3.5); Glucose 117 mg/dL (70-105); Osmolality,Calculated 275 (280-300); Potassium 4.2 mEq/L (3.5-5.1); Sodium 133 mEq/L (136-145); Total Protein 7.6 g/dL (6.4-8.9); eGFR For African Americans > 60 (> 60); eGFR For Non-African Americans > 60 (> 60)
[2021-07-26 15:50] LABS: ABG Base Excess 1 mEq/L (-2 to 3); ABG HCO3 27 mEq/L (21-27); ABG Oxygen Saturation 98 % (95-98); ABG PCO2 45 mmHg (35-45); ABG PH 7.38 pH Units (7.32-7.45); ABG PO2 111 mmHg (85-104); ABG TCO2 28 mEq/L (20-26)
[2021-07-26] MEDS ORDERED: Ondansetron 4 MG/2 ML VIAL IVP PRN (16:34)
[2021-07-26] MEDS ORDERED: Acetaminophen 325 MG TABLET PO PRN (16:34)
[2021-07-26] MEDS ORDERED: Naloxone 0.4 MG/ML INJ IVP PRN (16:34)
[2021-07-26] MEDS ORDERED: Nitroglycerin 0.4 MG TAB.SUBL SL PRN (16:37)
[2021-07-26] MEDS ORDERED: Ipratropium/Albuterol Neb 3 ML IH SCH (16:45)
[2021-07-26] MEDS: Budesonide/Formoterol 160/4.5 1 PUFF INH IH SCH ×2 (17:47→19:39)
[2021-07-26] MEDS: MethylPREDNISolone 40 MG/ML VIAL IVP SCH (23:49)
[2021-07-27 04:48] LABS: Hematocrit 39.4 % (35.3-44.9); Hemoglobin 13.2 g/dL (11.5-15.4); Mean Corpuscular HGB Conc 33.5 g/dL (31.6-35.5); Mean Corpuscular Hemoglobin 31.2 pg (28.0-33.3); Mean Corpuscular Volume 93.1 fL (83.0-100.0); Mean Platelet Volume 9.4 fL (9.4-12.4); Platelet Count 273 K/mcL (140-400); Red Blood Count 4.23 M/mcL (3.82-4.97); Red Cell Distribution Width 13.9 % (11.5-14.5)
[2021-07-27 05:04] LABS: BUN/Creatinine Ratio 24 (6-26); Blood Urea Nitrogen 15 mg/dL (8-23); Calcium 9.8 mg/dL (8.6-10.3); Carbon Dioxide 25 mEq/L (23-29); Chloride 98 mEq/L (98-107); Glucose 149 mg/dL (70-105); Osmolality,Calculated 280 (280-300); Potassium 4.2 mEq/L (3.5-5.1); Sodium 133 mEq/L (136-145); eGFR For African Americans > 60 (> 60); eGFR For Non-African Americans > 60 (> 60)
[2021-07-27] MEDS: *HR* Enoxaparin 40 MG/0.4 ML SYRINGE SQ SCH (05:21)
[2021-07-27] MEDS: Aspirin 81 MG TAB.CHEW PO SCH (07:53)
[2021-07-27] MEDS: lisinopriL 20 MG TABLET PO SCH (07:54)
[2021-07-27] MEDS: MethylPREDNISolone 40 MG/ML VIAL IVP SCH ×2 (07:54→16:39)
[2021-07-27] MEDS: Multivit/Ca/Min/Fe/FA 1 TAB TABLET PO SCH (07:54)
[2021-07-27] MEDS: Tiotropium 10 INH DOSE IH SCH (08:12)
[2021-07-27] MEDS: Budesonide/Formoterol 160/4.5 1 PUFF INH IH SCH ×2 (08:13→19:40)
[2021-07-27] MEDS: Ipratropium/Albuterol Neb 3 ML IH SCH ×3 (11:52→19:39)
[2021-07-28] MEDS: MethylPREDNISolone 40 MG/ML VIAL IVP SCH ×4 (00:23→23:47)
[2021-07-28] MEDS: Ipratropium/Albuterol Neb 3 ML IH SCH ×7 (03:58→23:52)
[2021-07-28] MEDS: *HR* Enoxaparin 40 MG/0.4 ML SYRINGE SQ SCH (04:13)
[2021-07-28] MEDS: lisinopriL 20 MG TABLET PO SCH (07:58)
[2021-07-28] MEDS: Multivit/Ca/Min/Fe/FA 1 TAB TABLET PO SCH (07:58)
[2021-07-28] MEDS: Aspirin 81 MG TAB.CHEW PO SCH (07:58)
[2021-07-28] MEDS: Tiotropium 10 INH DOSE IH SCH (08:51)
[2021-07-28] MEDS: Budesonide/Formoterol 160/4.5 1 PUFF INH IH SCH ×2 (08:52→19:32)
[2021-07-28] MEDS: Melatonin 3 MG TABLET PO SCH (21:28)
[2021-07-29 05:07] LABS: Basophils % 0.1 %; Hematocrit 37.3 % (35.3-44.9); Hemoglobin 12.4 g/dL (11.5-15.4); Immature Granulocytes % 0.5 % (0-4); Lymphocytes # 0.7 K/mcL (0.6-4.6); Lymphocytes % 4.9 %; Mean Corpuscular HGB Conc 33.2 g/dL (31.6-35.5); Mean Corpuscular Hemoglobin 31.5 pg (28.0-33.3); Mean Corpuscular Volume 94.7 fL (83.0-100.0); Mean Platelet Volume 9.7 fL (9.4-12.4); Monocytes # 0.3 K/mcL (0.0-1.3); Monocytes % 2.4 %; Neutrophils # 13.1 K/mcL (1.6-8.9); Platelet Count 257 K/mcL (140-400); Red Blood Count 3.94 M/mcL (3.82-4.97); Red Cell Distribution Width 13.7 % (11.5-14.5); Segmented Neutrophils % 92.1 %; White Blood Count 14.2 K/mcL (4.3-11.1)
[2021-07-29] MEDS: *HR* Enoxaparin 40 MG/0.4 ML SYRINGE SQ SCH (05:21)
[2021-07-29] MEDS: Ipratropium/Albuterol Neb 3 ML IH SCH ×6 (05:23→23:57)
[2021-07-29 05:27] LABS: BUN/Creatinine Ratio 35 (6-26); Blood Urea Nitrogen 19 mg/dL (8-23); Calcium 9.4 mg/dL (8.6-10.3); Carbon Dioxide 31 mEq/L (23-29); Chloride 93 mEq/L (98-107); Glucose 146 mg/dL (70-105); Osmolality,Calculated 273 (280-300); Potassium 4.6 mEq/L (3.5-5.1); Sodium 129 mEq/L (136-145); eGFR For African Americans > 60 (> 60); eGFR For Non-African Americans > 60 (> 60)
[2021-07-29] MEDS: Tiotropium 10 INH DOSE IH SCH (08:08)
[2021-07-29] MEDS: Budesonide/Formoterol 160/4.5 1 PUFF INH IH SCH ×2 (08:09→19:49)
[2021-07-29] MEDS: Aspirin 81 MG TAB.CHEW PO SCH (08:22)
[2021-07-29] MEDS: MethylPREDNISolone 40 MG/ML VIAL IVP SCH ×2 (08:22→16:18)
[2021-07-29] MEDS: Multivit/Ca/Min/Fe/FA 1 TAB TABLET PO SCH (08:22)
[2021-07-29] MEDS: lisinopriL 20 MG TABLET PO SCH (08:22)
[2021-07-29] MEDS: Melatonin 3 MG TABLET PO SCH (20:06)
[2021-07-30] MEDS: Ipratropium/Albuterol Neb 3 ML IH SCH ×6 (04:06→23:54)
[2021-07-30 05:13] LABS: Basophils % 0.1 %; Hematocrit 37.4 % (35.3-44.9); Hemoglobin 12.3 g/dL (11.5-15.4); Immature Granulocytes % 0.7 % (0-4); Lymphocytes # 2.2 K/mcL (0.6-4.6); Lymphocytes % 13.6 %; Mean Corpuscular HGB Conc 32.9 g/dL (31.6-35.5); Mean Corpuscular Hemoglobin 30.6 pg (28.0-33.3); Mean Platelet Volume 9.7 fL (9.4-12.4); Monocytes # 1.6 K/mcL (0.0-1.3); Monocytes % 9.9 %; Neutrophils # 12.5 K/mcL (1.6-8.9); Platelet Count 273 K/mcL (140-400); Red Blood Count 4.02 M/mcL (3.82-4.97); Red Cell Distribution Width 13.6 % (11.5-14.5); Segmented Neutrophils % 75.7 %; White Blood Count 16.5 K/mcL (4.3-11.1)
[2021-07-30] MEDS: MethylPREDNISolone 40 MG/ML VIAL IVP SCH ×2 (05:22→17:16)
[2021-07-30] MEDS: *HR* Enoxaparin 40 MG/0.4 ML SYRINGE SQ SCH (05:23)
[2021-07-30 05:33] LABS: Large Platelets Present (Not Present); Platelet Estimate Normal (Normal); Reactive Lymphocytes Present (Not Present)
[2021-07-30 05:34] LABS: BUN/Creatinine Ratio 36 (6-26); Blood Urea Nitrogen 21 mg/dL (8-23); Calcium 9.3 mg/dL (8.6-10.3); Carbon Dioxide 33 mEq/L (23-29); Chloride 94 mEq/L (98-107); Glucose 102 mg/dL (70-105); Osmolality,Calculated 277 (280-300); Potassium 4.3 mEq/L (3.5-5.1); Sodium 132 mEq/L (136-145); Toxic Vacuolation Present (Not Present); eGFR For African Americans > 60 (> 60); eGFR For Non-African Americans > 60 (> 60)
[2021-07-30 05:35] LABS: Smudge Cells Present (Not Present)
[2021-07-30] MEDS: Budesonide/Formoterol 160/4.5 1 PUFF INH IH SCH ×2 (07:22→20:02)
[2021-07-30] MEDS: Tiotropium 10 INH DOSE IH SCH (07:28)
[2021-07-30] MEDS: Multivit/Ca/Min/Fe/FA 1 TAB TABLET PO SCH (07:45)
[2021-07-30] MEDS: Aspirin 81 MG TAB.CHEW PO SCH (07:45)
[2021-07-30] MEDS: lisinopriL 20 MG TABLET PO SCH (07:45)
[2021-07-30] MEDS: Melatonin 3 MG TABLET PO SCH (20:20)
[2021-07-31] MEDS: Ipratropium/Albuterol Neb 3 ML IH SCH ×5 (03:46→20:08)
[2021-07-31] MEDS: *HR* Enoxaparin 40 MG/0.4 ML SYRINGE SQ SCH (05:15)
[2021-07-31] MEDS: MethylPREDNISolone 40 MG/ML VIAL IVP SCH ×2 (05:15→16:14)
[2021-07-31] MEDS: Multivit/Ca/Min/Fe/FA 1 TAB TABLET PO SCH (08:30)
[2021-07-31] MEDS: lisinopriL 20 MG TABLET PO SCH (08:30)
[2021-07-31] MEDS: Aspirin 81 MG TAB.CHEW PO SCH (08:30)
[2021-07-31] MEDS: Tiotropium 10 INH DOSE IH SCH (10:03)
[2021-07-31] MEDS: Budesonide/Formoterol 160/4.5 1 PUFF INH IH SCH ×2 (10:04→20:08)
[2021-07-31] MEDS: Melatonin 3 MG TABLET PO SCH (19:45)
[2021-08-01] MEDS: Ipratropium/Albuterol Neb 3 ML IH SCH ×5 (02:47→16:13)
[2021-08-01] MEDS: *HR* Enoxaparin 40 MG/0.4 ML SYRINGE SQ SCH (05:21)
[2021-08-01] MEDS: MethylPREDNISolone 40 MG/ML VIAL IVP SCH (05:21)
[2021-08-01 07:41] VITALS: BP 142/83; PULSE 68; TEMP 98.4
[2021-08-01] MEDS: lisinopriL 20 MG TABLET PO SCH (07:51)
[2021-08-01] MEDS: Aspirin 81 MG TAB.CHEW PO SCH (07:52)
[2021-08-01] MEDS: Multivit/Ca/Min/Fe/FA 1 TAB TABLET PO SCH (07:56)
[2021-08-01] MEDS: Tiotropium 10 INH DOSE IH SCH (08:10)
[2021-08-01] MEDS: Budesonide/Formoterol 160/4.5 1 PUFF INH IH SCH (08:11)
[2021-08-01 08:18] VITALS: RESP 16; O2SAT 97
== END 2021-08-01 17:30 | disposition home or self-care (01) | DRG 191 ==
LOC: EMEROOGRE 14:31 → INPGRE 14:31
PROVIDERS: ADMIT Family Medicine; ATTEND Family Medicine

== ENCOUNTER 2021-09-29 12:09 | Inpatient (IN) ==
[2021-09-29] MEDS ORDERED: methylPREDNISolone 125 MG/2 ML VIAL IVP ONE (12:15)
[2021-09-29 12:34] LABS: Basophils # 0.2 K/mcL (0.0-0.2); Basophils % 0.5 %; Eosinophils # 0.1 K/mcL (0.0-0.6); Eosinophils % 0.4 %; Immature Granulocytes % 2.9 % (0-4); Lymphocytes # 1.1 K/mcL (0.6-4.6); Lymphocytes % 3.5 %; Mean Corpuscular HGB Conc 33.3 g/dL (31.6-35.5); Mean Corpuscular Hemoglobin 31.6 pg (28.0-33.3); Mean Corpuscular Volume 94.9 fL (83.0-100.0); Mean Platelet Volume 9.3 fL (9.4-12.4); Monocytes # 2.4 K/mcL (0.0-1.3); Monocytes % 7.7 %; Platelet Count 290 K/mcL (140-400); Red Blood Count 4.11 M/mcL (3.82-4.97); Red Cell Distribution Width 13.7 % (11.5-14.5)
[2021-09-29 12:40] LABS: Neutrophils # 26.5 K/mcL (1.6-8.9); White Blood Count 31.2 K/mcL (4.3-11.1)
[2021-09-29] MEDS ORDERED: 0.9 % Sodium Chloride 500 ML IVC ONE (12:45)
[2021-09-29] MEDS ORDERED: levoFLOXacin 750 MG/150 ML 750 MG/150 ML BAG IVPB ONE (12:46)
[2021-09-29 12:47] LABS: BUN/Creatinine Ratio 19 (6-26); Blood Urea Nitrogen 14 mg/dL (8-23); Calcium 9.2 mg/dL (8.6-10.3); Carbon Dioxide 25 mEq/L (23-29); Chloride 96 mEq/L (98-107); Glucose 107 mg/dL (70-105); Osmolality,Calculated 271 (280-300); Potassium 3.7 mEq/L (3.5-5.1); Sodium 130 mEq/L (136-145); eGFR For African Americans > 60 (> 60); eGFR For Non-African Americans > 60 (> 60)
[2021-09-29 12:51] LABS: Troponin I < 0.03 ng/mL (< 0.04)
[2021-09-29 13:02] LABS: ABG Base Excess 1 mEq/L (-2 to 3); ABG HCO3 25 mEq/L (21-27); ABG Oxygen Saturation 94 % (95-98); ABG PCO2 37 mmHg (35-45); ABG PH 7.43 pH Units (7.32-7.45); ABG PO2 67 mmHg (85-104); ABG TCO2 26 mEq/L (20-26)
[2021-09-29] MEDS ORDERED: Ipratropium/Albuterol Neb 3 ML IH ONE (13:02)
[2021-09-29] MEDS ORDERED: Isovue-370 500 ML BOTTLE IVP ONE (14:01)
[2021-09-29] MEDS ORDERED: *HR* LORazepam 2 MG/ML VIAL IVP ONE (14:14)
[2021-09-29 15:55] LABS: Bilirubin,Urine Negative (Negative); Blood,Urine Trace-intact (Negative); Clarity,Urine Cloudy (Clear); Color,Urine Yellow (Yellow); Glucose,Urine (UA) Normal (Normal); Ketones,Urine Negative (Negative); Leukocyte Esterase,Urine Moderate (Negative); Nitrite,Urine Negative (Negative); Protein,Urine Negative (Neg-Trace); Urobilinogen,Urine Normal (Normal)
[2021-09-29] MEDS ORDERED: Ondansetron 4 MG/2 ML VIAL IVP PRN (16:02)
[2021-09-29] MEDS ORDERED: Acetaminophen 325 MG TABLET PO PRN (16:02)
[2021-09-29] MEDS ORDERED: Naloxone 0.4 MG/ML INJ IVP PRN (16:02)
[2021-09-29] MEDS ORDERED: *HR* HYDROcodone/Acet 5/325 mg TABLET PO PRN (16:02)
[2021-09-29 16:07] LABS: Bacteria,Urine Moderate per hpf (None-Few); RBC,Urine 0-3 per hpf (0-3); Squamous Epithelial Cell,Urine Few per hpf (None-Few); WBC,Urine 30-50 per hpf (0-3)
[2021-09-29] MEDS: Ipratropium/Albuterol Neb 3 ML IH SCH ×3 (17:47→22:41)
[2021-09-29] MEDS: MethylPREDNISolone 40 MG/ML VIAL IVP SCH ×2 (17:59→23:38)
[2021-09-29] MEDS: 0.9 % Sodium Chloride 1,000 ML IVC SCH (18:05)
[2021-09-29 18:58] LABS: Adenovirus Not Detected (Not Detect); Bordetella Pertussis Not Detected (Not Detect); Chlamydophila pneumoniae Not Detected (Not Detect); Coronavirus 229E Not Detected (Not Detect); Coronavirus HKU1 Not Detected (Not Detect); Coronavirus NL63 Not Detected (Not Detect); Coronavirus OC43 Not Detected (Not Detect); Human Metapneumovirus Not Detected (Not Detect); Human Rhinovirus/Enterovirus Not Detected (Not Detect); Influenza A Subtype 2009 H1 Not Detected (Not Detect); Influenza B Not Detected (Not Detect); Mycoplasma pneumoniae Not Detected (Not Detect); Parainfluenza Virus 1 Not Detected (Not Detect); Parainfluenza Virus 2 Not Detected (Not Detect); Parainfluenza Virus 3 Not Detected (Not Detect); Parainfluenza Virus 4 Not Detected (Not Detect); Respiratory Syncytial Virus Not Detected (Not Detect); SARS-CoV-2 Not Detected (Not Detect)
[2021-09-29] MEDS: Budesonide/Formoterol 160/4.5 1 PUFF INH IH SCH (19:11)
[2021-09-29] MEDS ORDERED: Budesonide/Formoterol 160/4.5 1 PUFF INH IH SCH (22:00)
[2021-09-30] MEDS: Ipratropium/Albuterol Neb 3 ML IH SCH ×6 (02:36→23:41)
[2021-09-30] MEDS: *HR* LORazepam 0.5 MG TABLET PO PRN ×2 (03:44→20:38)
[2021-09-30] MEDS: 0.9 % Sodium Chloride 1,000 ML IVC SCH (04:08)
[2021-09-30] MEDS: MethylPREDNISolone 40 MG/ML VIAL IVP SCH ×3 (04:18→23:39)
[2021-09-30] MEDS: *HR* Enoxaparin 40 MG/0.4 ML SYRINGE SQ SCH (04:19)
[2021-09-30 06:16] LABS: Hematocrit 32.8 % (35.3-44.9); Hemoglobin 10.8 g/dL (11.5-15.4); Mean Corpuscular HGB Conc 32.9 g/dL (31.6-35.5); Mean Corpuscular Hemoglobin 30.8 pg (28.0-33.3); Mean Corpuscular Volume 93.4 fL (83.0-100.0); Mean Platelet Volume 9.2 fL (9.4-12.4); Platelet Count 258 K/mcL (140-400); Red Blood Count 3.51 M/mcL (3.82-4.97); Red Cell Distribution Width 13.6 % (11.5-14.5); White Blood Count 26.7 K/mcL (4.3-11.1)
[2021-09-30 06:31] LABS: BUN/Creatinine Ratio 25 (6-26); Blood Urea Nitrogen 14 mg/dL (8-23); Calcium 8.9 mg/dL (8.6-10.3); Carbon Dioxide 25 mEq/L (23-29); Chloride 98 mEq/L (98-107); Glucose 150 mg/dL (70-105); Osmolality,Calculated 269 (280-300); Sodium 128 mEq/L (136-145); eGFR For African Americans > 60 (> 60); eGFR For Non-African Americans > 60 (> 60)
[2021-09-30] MEDS: Multivit/Ca/Min/Fe/FA 1 TAB TABLET PO SCH (08:14)
[2021-09-30] MEDS: levoFLOXacin 750 MG/150 ML 750 MG/150 ML BAG IVPB SCH (08:14)
[2021-09-30] MEDS: Aspirin 81 MG TAB.CHEW PO SCH (08:14)
[2021-09-30] MEDS: lisinopriL 20 MG TABLET PO SCH (08:14)
[2021-09-30] MEDS: Budesonide/Formoterol 160/4.5 1 PUFF INH IH SCH ×2 (08:18→19:53)
[2021-09-30] MEDS: Tiotropium 10 INH DOSE IH SCH (08:19)
[2021-10-01] MEDS: Ipratropium/Albuterol Neb 3 ML IH SCH ×5 (04:09→19:52)
[2021-10-01] MEDS: *HR* Enoxaparin 40 MG/0.4 ML SYRINGE SQ SCH (05:46)
[2021-10-01 06:10] LABS: Hematocrit 31.5 % (35.3-44.9); Hemoglobin 10.3 g/dL (11.5-15.4); Mean Corpuscular HGB Conc 32.7 g/dL (31.6-35.5); Mean Corpuscular Hemoglobin 30.9 pg (28.0-33.3); Mean Corpuscular Volume 94.6 fL (83.0-100.0); Mean Platelet Volume 9.3 fL (9.4-12.4); Platelet Count 260 K/mcL (140-400); Red Blood Count 3.33 M/mcL (3.82-4.97); Red Cell Distribution Width 13.6 % (11.5-14.5); White Blood Count 24.4 K/mcL (4.3-11.1)
[2021-10-01 06:38] LABS: BUN/Creatinine Ratio 22 (6-26); Blood Urea Nitrogen 12 mg/dL (8-23); Carbon Dioxide 26 mEq/L (23-29); Chloride 102 mEq/L (98-107); Glucose 157 mg/dL (70-105); Osmolality,Calculated 277 (280-300); Sodium 132 mEq/L (136-145); eGFR For African Americans > 60 (> 60); eGFR For Non-African Americans > 60 (> 60)
[2021-10-01] MEDS: Budesonide/Formoterol 160/4.5 1 PUFF INH IH SCH ×2 (08:33→22:31)
[2021-10-01] MEDS: Tiotropium 10 INH DOSE IH SCH (08:33)
[2021-10-01] MEDS: MethylPREDNISolone 40 MG/ML VIAL IVP SCH ×2 (09:02→17:25)
[2021-10-01] MEDS: lisinopriL 20 MG TABLET PO SCH (09:03)
[2021-10-01] MEDS: Multivit/Ca/Min/Fe/FA 1 TAB TABLET PO SCH (09:03)
[2021-10-01] MEDS: Aspirin 81 MG TAB.CHEW PO SCH (09:03)
[2021-10-01] MEDS: levoFLOXacin 750 MG/150 ML 750 MG/150 ML BAG IVPB SCH (09:04)
[2021-10-01] MEDS: *HR* LORazepam 0.5 MG TABLET PO PRN (20:33)
[2021-10-02] MEDS: Ipratropium/Albuterol Neb 3 ML IH SCH ×6 (00:01→19:47)
[2021-10-02] MEDS: *HR* Enoxaparin 40 MG/0.4 ML SYRINGE SQ SCH (04:22)
[2021-10-02] MEDS: MethylPREDNISolone 40 MG/ML VIAL IVP SCH ×2 (04:23→17:19)
[2021-10-02] MEDS: Budesonide/Formoterol 160/4.5 1 PUFF INH IH SCH ×2 (07:31→19:47)
[2021-10-02] MEDS: Tiotropium 10 INH DOSE IH SCH (07:31)
[2021-10-02] MEDS: lisinopriL 20 MG TABLET PO SCH (08:30)
[2021-10-02] MEDS: Multivit/Ca/Min/Fe/FA 1 TAB TABLET PO SCH (08:31)
[2021-10-02] MEDS: Aspirin 81 MG TAB.CHEW PO SCH (08:31)
[2021-10-02] MEDS: levoFLOXacin 750 MG/150 ML 750 MG/150 ML BAG IVPB SCH (08:33)
[2021-10-02] MEDS: *HR* LORazepam 0.5 MG TABLET PO PRN (08:45)
[2021-10-02] MEDS: *HR* LORazepam 0.5 MG TABLET PO SCH ×2 (15:13→21:03)
[2021-10-02] MEDS ORDERED: *HR* LORazepam 0.5 MG TABLET PO SCH (17:00)
[2021-10-03] MEDS: Ipratropium/Albuterol Neb 3 ML IH SCH ×7 (00:02→23:41)
[2021-10-03 04:59] LABS: Hematocrit 35.4 % (35.3-44.9); Hemoglobin 11.4 g/dL (11.5-15.4); Mean Corpuscular HGB Conc 32.2 g/dL (31.6-35.5); Mean Corpuscular Hemoglobin 30.8 pg (28.0-33.3); Mean Corpuscular Volume 95.7 fL (83.0-100.0); Platelet Count 275 K/mcL (140-400); Red Cell Distribution Width 13.6 % (11.5-14.5); White Blood Count 24.9 K/mcL (4.3-11.1)
[2021-10-03] MEDS: MethylPREDNISolone 40 MG/ML VIAL IVP SCH ×2 (05:08→15:53)
[2021-10-03] MEDS: *HR* Enoxaparin 40 MG/0.4 ML SYRINGE SQ SCH (05:09)
[2021-10-03 05:20] LABS: Alanine Aminotransferase 18 Units/L (7-52); Albumin 3.2 g/dL (3.5-5.7); Albumin/Globulin Ratio 1.2 (1.1-2.2); Alkaline Phosphatase 114 Units/L (34-104); Aspartate Amino Transferase 18 Units/L (13-39); BUN/Creatinine Ratio 24 (6-26); Bilirubin,Total 0.2 mg/dL (0.3-1.0); Blood Urea Nitrogen 15 mg/dL (8-23); Calcium 9.1 mg/dL (8.6-10.3); Carbon Dioxide 34 mEq/L (23-29); Chloride 98 mEq/L (98-107); Globulin 2.7 g/dL (2.4-3.5); Glucose 124 mg/dL (70-105); Osmolality,Calculated 280 (280-300); Potassium 4.8 mEq/L (3.5-5.1); Sodium 134 mEq/L (136-145); Total Protein 5.9 g/dL (6.4-8.9); eGFR For African Americans > 60 (> 60); eGFR For Non-African Americans > 60 (> 60)
[2021-10-03] MEDS: Budesonide/Formoterol 160/4.5 1 PUFF INH IH SCH ×2 (07:45→19:51)
[2021-10-03] MEDS: Tiotropium 10 INH DOSE IH SCH (07:46)
[2021-10-03] MEDS: Multivit/Ca/Min/Fe/FA 1 TAB TABLET PO SCH (09:08)
[2021-10-03] MEDS: lisinopriL 20 MG TABLET PO SCH (09:08)
[2021-10-03] MEDS: *HR* LORazepam 0.5 MG TABLET PO SCH ×4 (09:08→20:51)
[2021-10-03] MEDS: Aspirin 81 MG TAB.CHEW PO SCH (09:08)
[2021-10-03] MEDS: levoFLOXacin 750 MG/150 ML 750 MG/150 ML BAG IVPB SCH (09:09)
[2021-10-03] MEDS: Sennosides/Docusate Sodium TABLET PO SCH ×2 (12:46→20:51)
[2021-10-04] MEDS: Ipratropium/Albuterol Neb 3 ML IH SCH ×5 (04:14→20:28)
[2021-10-04] MEDS: MethylPREDNISolone 40 MG/ML VIAL IVP SCH ×2 (06:14→17:15)
[2021-10-04] MEDS: *HR* Enoxaparin 40 MG/0.4 ML SYRINGE SQ SCH (06:19)
[2021-10-04] MEDS: Budesonide/Formoterol 160/4.5 1 PUFF INH IH SCH ×2 (07:39→20:30)
[2021-10-04] MEDS: Tiotropium 10 INH DOSE IH SCH (07:39)
[2021-10-04] MEDS: *HR* LORazepam 0.5 MG TABLET PO SCH ×4 (08:04→19:57)
[2021-10-04] MEDS: Sennosides/Docusate Sodium TABLET PO SCH ×2 (08:04→19:57)
[2021-10-04] MEDS: lisinopriL 20 MG TABLET PO SCH (08:04)
[2021-10-04] MEDS: Multivit/Ca/Min/Fe/FA 1 TAB TABLET PO SCH (08:04)
[2021-10-04] MEDS: Aspirin 81 MG TAB.CHEW PO SCH (08:04)
[2021-10-04] MEDS: levoFLOXacin 750 MG/150 ML 750 MG/150 ML BAG IVPB SCH (08:05)
[2021-10-05] MEDS: Ipratropium/Albuterol Neb 3 ML IH SCH ×7 (00:07→23:53)
[2021-10-05 05:12] LABS: Basophils % 0.1 %; Hematocrit 30.2 % (35.3-44.9); Immature Granulocytes % 11.3 % (0-4); Lymphocytes # 3.9 K/mcL (0.6-4.6); Mean Corpuscular HGB Conc 32.1 g/dL (31.6-35.5); Mean Corpuscular Hemoglobin 30.5 pg (28.0-33.3); Mean Platelet Volume 8.9 fL (9.4-12.4); Monocytes # 2.5 K/mcL (0.0-1.3); Monocytes % 8.2 %; Neutrophils # 20.4 K/mcL (1.6-8.9); Nucleated Red Blood Cells 0.1 /100 WBC (0); Platelet Count 314 K/mcL (140-400); Red Blood Count 3.18 M/mcL (3.82-4.97); Red Cell Distribution Width 13.9 % (11.5-14.5); Segmented Neutrophils % 67.4 %
[2021-10-05 05:19] LABS: BUN/Creatinine Ratio 25 (6-26); Blood Urea Nitrogen 17 mg/dL (8-23); Calcium 8.8 mg/dL (8.6-10.3); Carbon Dioxide 37 mEq/L (23-29); Chloride 93 mEq/L (98-107); Glucose 88 mg/dL (70-105); Osmolality,Calculated 275 (280-300); Potassium 5.1 mEq/L (3.5-5.1); Sodium 132 mEq/L (136-145); eGFR For African Americans > 60 (> 60); eGFR For Non-African Americans > 60 (> 60)
[2021-10-05 05:21] LABS: White Blood Count 30.2 K/mcL (4.3-11.1)
[2021-10-05 05:25] LABS: Hemoglobin 9.7 g/dL (11.5-15.4)
[2021-10-05 05:35] LABS: Platelet Estimate Normal (Normal)
[2021-10-05] MEDS: MethylPREDNISolone 40 MG/ML VIAL IVP SCH (05:49)
[2021-10-05] MEDS: *HR* Enoxaparin 40 MG/0.4 ML SYRINGE SQ SCH (05:49)
[2021-10-05] MEDS: Budesonide/Formoterol 160/4.5 1 PUFF INH IH SCH ×2 (07:42→20:36)
[2021-10-05] MEDS: Tiotropium 10 INH DOSE IH SCH (07:43)
[2021-10-05] MEDS: Sennosides/Docusate Sodium TABLET PO SCH ×2 (08:05→20:50)
[2021-10-05] MEDS: Multivit/Ca/Min/Fe/FA 1 TAB TABLET PO SCH (08:06)
[2021-10-05] MEDS: Aspirin 81 MG TAB.CHEW PO SCH (08:06)
[2021-10-05] MEDS: lisinopriL 20 MG TABLET PO SCH (08:06)
[2021-10-05] MEDS: *HR* LORazepam 0.5 MG TABLET PO SCH ×4 (08:07→20:50)
[2021-10-05] MEDS: levoFLOXacin 750 MG/150 ML 750 MG/150 ML BAG IVPB SCH (08:07)
[2021-10-05] MEDS ORDERED: 0.9 % Sodium Chloride 1,000 ML IVC SCH (11:15)
[2021-10-06] MEDS: Ipratropium/Albuterol Neb 3 ML IH SCH ×4 (04:27→16:01)
[2021-10-06] MEDS: *HR* Enoxaparin 40 MG/0.4 ML SYRINGE SQ SCH (04:43)
[2021-10-06 06:23] LABS: Eosinophils # 0.2 K/mcL (0.0-0.6); Eosinophils % 0.8 %; Hematocrit 29.8 % (35.3-44.9); Hemoglobin 9.6 g/dL (11.5-15.4); Immature Granulocytes % 9.1 % (0-4); Lymphocytes # 5.3 K/mcL (0.6-4.6); Lymphocytes % 20.6 %; Mean Corpuscular HGB Conc 32.2 g/dL (31.6-35.5); Mean Corpuscular Hemoglobin 30.8 pg (28.0-33.3); Mean Corpuscular Volume 95.5 fL (83.0-100.0); Mean Platelet Volume 8.9 fL (9.4-12.4); Monocytes # 1.9 K/mcL (0.0-1.3); Monocytes % 7.5 %; Neutrophils # 15.9 K/mcL (1.6-8.9); Nucleated Red Blood Cells 0.1 /100 WBC (0); Platelet Count 328 K/mcL (140-400); Red Blood Count 3.12 M/mcL (3.82-4.97); Red Cell Distribution Width 14.1 % (11.5-14.5); White Blood Count 25.7 K/mcL (4.3-11.1)
[2021-10-06 06:39] LABS: BUN/Creatinine Ratio 21 (6-26); Blood Urea Nitrogen 15 mg/dL (8-23); Calcium 8.1 mg/dL (8.6-10.3); Carbon Dioxide 34 mEq/L (23-29); Chloride 92 mEq/L (98-107); Glucose 71 mg/dL (70-105); Osmolality,Calculated 267 (280-300); Potassium 4.1 mEq/L (3.5-5.1); Sodium 129 mEq/L (136-145); eGFR For African Americans > 60 (> 60); eGFR For Non-African Americans > 60 (> 60)
[2021-10-06 06:58] LABS: Platelet Estimate Normal (Normal)
[2021-10-06] MEDS: Tiotropium 10 INH DOSE IH SCH (07:35)
[2021-10-06] MEDS: Budesonide/Formoterol 160/4.5 1 PUFF INH IH SCH (07:36)
[2021-10-06 07:45] VITALS: RESP 18
[2021-10-06 08:09] LABS: Iron 42 mcg/dL (50-170)
[2021-10-06 08:33] VITALS: BP 121/69; PULSE 72; TEMP 98.3
[2021-10-06] MEDS ORDERED: predniSONE 20 MG TABLET PO SCH (09:00)
[2021-10-06] MEDS: levoFLOXacin 750 MG/150 ML 750 MG/150 ML BAG IVPB SCH (09:33)
[2021-10-06] MEDS: lisinopriL 20 MG TABLET PO SCH (09:33)
[2021-10-06] MEDS: Multivit/Ca/Min/Fe/FA 1 TAB TABLET PO SCH (09:34)
[2021-10-06] MEDS: Sennosides/Docusate Sodium TABLET PO SCH (09:34)
[2021-10-06] MEDS: Aspirin 81 MG TAB.CHEW PO SCH (09:34)
[2021-10-06] MEDS: *HR* LORazepam 0.5 MG TABLET PO SCH ×2 (09:35→12:17)
[2021-10-06 16:05] VITALS: O2SAT 98
== END 2021-10-06 17:05 | disposition home or self-care (01) | DRG 190 ==
LOC: EMEROOGRE 12:09 → INPGRE 16:33
PROVIDERS: ADMIT Family Medicine; ATTEND Family Medicine

== ENCOUNTER 2021-11-28 19:06 | Observation (INO) ==
[2021-11-28 19:48] LABS: Basophils # 0.1 K/mcL (0.0-0.2); Basophils % 0.3 %; Eosinophils # 0.1 K/mcL (0.0-0.6); Eosinophils % 0.2 %; Hematocrit 35.2 % (35.3-44.9); Hemoglobin 11.9 g/dL (11.5-15.4); Immature Granulocytes % 1.1 % (0-4); Lymphocytes # 3.7 K/mcL (0.6-4.6); Lymphocytes % 9.6 %; Mean Corpuscular HGB Conc 33.8 g/dL (31.6-35.5); Mean Corpuscular Hemoglobin 31.6 pg (28.0-33.3); Mean Corpuscular Volume 93.4 fL (83.0-100.0); Mean Platelet Volume 8.4 fL (9.4-12.4); Monocytes # 1.8 K/mcL (0.0-1.3); Monocytes % 4.7 %; Neutrophils # 32.3 K/mcL (1.6-8.9); Platelet Count 420 K/mcL (140-400); Red Blood Count 3.77 M/mcL (3.82-4.97); Red Cell Distribution Width 14.2 % (11.5-14.5); Segmented Neutrophils % 84.1 %
[2021-11-28 19:53] LABS: INR 1.1; Prothrombin Time 12.5 Seconds (9.4-12.1)
[2021-11-28 19:55] LABS: Activated Partial Thrombo Time 31.1 Seconds (26.0-36.0); White Blood Count 38.4 K/mcL (4.3-11.1)
[2021-11-28 19:56] LABS: Platelet Estimate Normal (Normal)
[2021-11-28] MEDS ORDERED: levoFLOXacin 750 MG/150 ML 750 MG/150 ML BAG IVPB ONE (19:59)
[2021-11-28 20:03] LABS: Alanine Aminotransferase 8 Units/L (7-52); Albumin 3.4 g/dL (3.5-5.7); Albumin/Globulin Ratio 1.2 (1.1-2.2); Alkaline Phosphatase 85 Units/L (34-104); Aspartate Amino Transferase 10 Units/L (13-39); BUN/Creatinine Ratio 20 (6-26); Bilirubin,Total 0.4 mg/dL (0.3-1.0); Blood Urea Nitrogen 13 mg/dL (8-23); Calcium 9.1 mg/dL (8.6-10.3); Carbon Dioxide 26 mEq/L (23-29); Chloride 96 mEq/L (98-107); Globulin 2.9 g/dL (2.4-3.5); Glucose 116 mg/dL (70-105); Osmolality,Calculated 271 (280-300); Phosphorous 2.7 mg/dL (2.7-4.5); Potassium 3.8 mEq/L (3.5-5.1); Sodium 130 mEq/L (136-145); Total Protein 6.3 g/dL (6.4-8.9); eGFR For African Americans > 60 (> 60); eGFR For Non-African Americans > 60 (> 60)
[2021-11-28 20:04] LABS: Troponin I < 0.03 ng/mL (< 0.04)
[2021-11-28] MEDS ORDERED: NON-FORMULARY MEDICATION 1 EACH EACH (Fluticasone/Umeclidin/Vilanter [Trelegy Ellipta 100- IH PRN (22:11)
[2021-11-28] MEDS ORDERED: Naloxone 0.4 MG/ML INJ IVP PRN (22:11)
[2021-11-28] MEDS: Budesonide/Formoterol 160/4.5 1 PUFF INH IH SCH (22:24)
[2021-11-28] MEDS: Ipratropium/Albuterol Neb 3 ML IH PRN (22:26)
[2021-11-29 04:31] LABS: Basophils # 0.1 K/mcL (0.0-0.2); Basophils % 0.2 %; Hemoglobin 12.2 g/dL (11.5-15.4); Immature Granulocytes % 1.3 % (0-4); Lymphocytes # 1.1 K/mcL (0.6-4.6); Lymphocytes % 2.8 %; Mean Corpuscular Hemoglobin 30.7 pg (28.0-33.3); Mean Platelet Volume 8.4 fL (9.4-12.4); Monocytes # 0.2 K/mcL (0.0-1.3); Monocytes % 0.4 %; Platelet Count 420 K/mcL (140-400); Red Blood Count 3.98 M/mcL (3.82-4.97); Segmented Neutrophils % 95.3 %
[2021-11-29] MEDS: Ipratropium/Albuterol Neb 3 ML IH PRN ×4 (04:43→21:11)
[2021-11-29 04:45] LABS: BUN/Creatinine Ratio 16 (6-26); Blood Urea Nitrogen 10 mg/dL (8-23); Calcium 9.4 mg/dL (8.6-10.3); Carbon Dioxide 26 mEq/L (23-29); Chloride 96 mEq/L (98-107); Glucose 141 mg/dL (70-105); Osmolality,Calculated 271 (280-300); Potassium 4.4 mEq/L (3.5-5.1); Sodium 130 mEq/L (136-145); eGFR For African Americans > 60 (> 60); eGFR For Non-African Americans > 60 (> 60)
[2021-11-29 05:10] LABS: White Blood Count 37.8 K/mcL (4.3-11.1)
[2021-11-29] MEDS: Aspirin 81 MG TAB.CHEW PO SCH (08:15)
[2021-11-29] MEDS: lisinopriL 20 MG TABLET PO SCH (08:16)
[2021-11-29] MEDS: Multivit/Ca/Min/Fe/FA 1 TAB TABLET PO SCH (08:16)
[2021-11-29] MEDS: Sennosides/Docusate Sodium TABLET PO SCH ×2 (08:16→20:40)
[2021-11-29] MEDS: polyethylene glycoL 3350 17 GM POWD.PACK PO SCH ×2 (08:17→20:40)
[2021-11-29] MEDS: Budesonide/Formoterol 160/4.5 1 PUFF INH IH SCH ×2 (10:25→21:11)
[2021-11-29] MEDS: predniSONE 20 MG TABLET PO SCH ×2 (12:32→16:41)
[2021-11-29] MEDS: Acetaminophen 325 MG TABLET PO PRN (18:57)
[2021-11-29] MEDS: *HR* LORazepam 0.5 MG TABLET PO PRN (18:57)
[2021-11-29] MEDS: levoFLOXacin 750 MG/150 ML 750 MG/150 ML BAG IVPB SCH (20:39)
[2021-11-29 20:47] LABS: Adenovirus Not Detected (Not Detect); Bordetella Pertussis Not Detected (Not Detect); Chlamydophila pneumoniae Not Detected (Not Detect); Coronavirus 229E Not Detected (Not Detect); Coronavirus HKU1 Not Detected (Not Detect); Coronavirus NL63 Not Detected (Not Detect); Coronavirus OC43 Not Detected (Not Detect); Human Metapneumovirus Not Detected (Not Detect); Human Rhinovirus/Enterovirus Not Detected (Not Detect); Influenza A Subtype 2009 H1 Not Detected (Not Detect); Influenza B Not Detected (Not Detect); Mycoplasma pneumoniae Not Detected (Not Detect); Parainfluenza Virus 1 Not Detected (Not Detect); Parainfluenza Virus 2 Not Detected (Not Detect); Parainfluenza Virus 3 Not Detected (Not Detect); Parainfluenza Virus 4 Not Detected (Not Detect); Respiratory Syncytial Virus Not Detected (Not Detect); SARS-CoV-2 Not Detected (Not Detect)
[2021-11-30 05:02] LABS: Hematocrit 34.5 % (35.3-44.9); Hemoglobin 11.5 g/dL (11.5-15.4); Mean Corpuscular HGB Conc 33.3 g/dL (31.6-35.5); Mean Corpuscular Hemoglobin 31.1 pg (28.0-33.3); Mean Corpuscular Volume 93.2 fL (83.0-100.0); Mean Platelet Volume 8.8 fL (9.4-12.4); Platelet Count 394 K/mcL (140-400); White Blood Count 27.6 K/mcL (4.3-11.1)
[2021-11-30 05:21] LABS: BUN/Creatinine Ratio 22 (6-26); Blood Urea Nitrogen 14 mg/dL (8-23); Calcium 9.2 mg/dL (8.6-10.3); Carbon Dioxide 29 mEq/L (23-29); Chloride 96 mEq/L (98-107); Glucose 96 mg/dL (70-105); Osmolality,Calculated 268 (280-300); Potassium 4.5 mEq/L (3.5-5.1); Sodium 129 mEq/L (136-145); eGFR For African Americans > 60 (> 60); eGFR For Non-African Americans > 60 (> 60)
[2021-11-30] MEDS: Aspirin 81 MG TAB.CHEW PO SCH (08:20)
[2021-11-30] MEDS: Multivit/Ca/Min/Fe/FA 1 TAB TABLET PO SCH (08:20)
[2021-11-30] MEDS: lisinopriL 20 MG TABLET PO SCH (08:20)
[2021-11-30] MEDS: Acetaminophen 325 MG TABLET PO PRN (08:20)
[2021-11-30] MEDS: Sennosides/Docusate Sodium TABLET PO SCH ×2 (08:20→21:41)
[2021-11-30] MEDS: *HR* LORazepam 0.5 MG TABLET PO PRN ×2 (08:20→21:41)
[2021-11-30] MEDS: polyethylene glycoL 3350 17 GM POWD.PACK PO SCH ×2 (08:21→22:01)
[2021-11-30] MEDS: predniSONE 20 MG TABLET PO SCH ×2 (08:21→17:46)
[2021-11-30] MEDS: Ipratropium/Albuterol Neb 3 ML IH PRN ×3 (09:12→20:24)
[2021-11-30] MEDS: Budesonide/Formoterol 160/4.5 1 PUFF INH IH SCH ×2 (09:13→20:24)
[2021-11-30] MEDS: levoFLOXacin 750 MG/150 ML 750 MG/150 ML BAG IVPB SCH (21:42)
[2021-12-01] MEDS: Ipratropium/Albuterol Neb 3 ML IH PRN ×4 (03:24→21:21)
[2021-12-01] MEDS: Budesonide/Formoterol 160/4.5 1 PUFF INH IH SCH ×2 (07:57→21:21)
[2021-12-01] MEDS: predniSONE 20 MG TABLET PO SCH ×2 (08:22→17:05)
[2021-12-01] MEDS: Sennosides/Docusate Sodium TABLET PO SCH ×2 (08:22→20:28)
[2021-12-01] MEDS: Multivit/Ca/Min/Fe/FA 1 TAB TABLET PO SCH (08:22)
[2021-12-01] MEDS: Aspirin 81 MG TAB.CHEW PO SCH (08:22)
[2021-12-01] MEDS: lisinopriL 20 MG TABLET PO SCH (08:23)
[2021-12-01] MEDS: polyethylene glycoL 3350 17 GM POWD.PACK PO SCH ×2 (08:24→20:28)
[2021-12-01] MEDS: *HR* LORazepam 0.5 MG TABLET PO PRN ×2 (08:32→20:29)
[2021-12-01 10:33] LABS: Basophils % 0.2 %; Eosinophils % 0.1 %; Hemoglobin 12.7 g/dL (11.5-15.4); Immature Granulocytes % 0.9 % (0-4); Lymphocytes # 2.8 K/mcL (0.6-4.6); Lymphocytes % 16.6 %; Mean Corpuscular HGB Conc 33.4 g/dL (31.6-35.5); Mean Corpuscular Hemoglobin 30.8 pg (28.0-33.3); Mean Platelet Volume 8.4 fL (9.4-12.4); Neutrophils # 12.9 K/mcL (1.6-8.9); Platelet Count 423 K/mcL (140-400); Red Blood Count 4.13 M/mcL (3.82-4.97); Red Cell Distribution Width 13.8 % (11.5-14.5); Segmented Neutrophils % 76.2 %; White Blood Count 16.9 K/mcL (4.3-11.1)
[2021-12-01 10:51] LABS: BUN/Creatinine Ratio 19 (6-26); Blood Urea Nitrogen 13 mg/dL (8-23); Calcium 9.9 mg/dL (8.6-10.3); Carbon Dioxide 30 mEq/L (23-29); Chloride 93 mEq/L (98-107); Glucose 124 mg/dL (70-105); Osmolality,Calculated 270 (280-300); Sodium 129 mEq/L (136-145); eGFR For African Americans > 60 (> 60); eGFR For Non-African Americans > 60 (> 60)
[2021-12-01] MEDS: levoFLOXacin 750 MG/150 ML 750 MG/150 ML BAG IVPB SCH (20:30)
[2021-12-01] MEDS: Acetaminophen 325 MG TABLET PO PRN (23:18)
[2021-12-02] MEDS: Ipratropium/Albuterol Neb 3 ML IH PRN ×2 (06:25→14:48)
[2021-12-02] MEDS: Budesonide/Formoterol 160/4.5 1 PUFF INH IH SCH (06:26)
[2021-12-02 07:38] LABS: Basophils % 0.2 %; Eosinophils % 0.1 %; Hematocrit 37.5 % (35.3-44.9); Hemoglobin 12.6 g/dL (11.5-15.4); Lymphocytes # 3.7 K/mcL (0.6-4.6); Lymphocytes % 20.3 %; Mean Corpuscular HGB Conc 33.6 g/dL (31.6-35.5); Mean Corpuscular Volume 92.1 fL (83.0-100.0); Mean Platelet Volume 8.4 fL (9.4-12.4); Monocytes % 5.4 %; Neutrophils # 13.4 K/mcL (1.6-8.9); Platelet Count 422 K/mcL (140-400); Red Blood Count 4.07 M/mcL (3.82-4.97); Red Cell Distribution Width 13.6 % (11.5-14.5); White Blood Count 18.4 K/mcL (4.3-11.1)
[2021-12-02 08:11] LABS: BUN/Creatinine Ratio 28 (6-26); Blood Urea Nitrogen 15 mg/dL (8-23); Calcium 9.3 mg/dL (8.6-10.3); Carbon Dioxide 27 mEq/L (23-29); Chloride 94 mEq/L (98-107); Glucose 123 mg/dL (70-105); Osmolality,Calculated 268 (280-300); Potassium 3.8 mEq/L (3.5-5.1); Sodium 128 mEq/L (136-145); eGFR For African Americans > 60 (> 60); eGFR For Non-African Americans > 60 (> 60)
[2021-12-02] MEDS: Aspirin 81 MG TAB.CHEW PO SCH (10:39)
[2021-12-02] MEDS: predniSONE 20 MG TABLET PO SCH ×2 (10:39→15:33)
[2021-12-02] MEDS: Multivit/Ca/Min/Fe/FA 1 TAB TABLET PO SCH (10:40)
[2021-12-02] MEDS: Sennosides/Docusate Sodium TABLET PO SCH (10:41)
[2021-12-02] MEDS: polyethylene glycoL 3350 17 GM POWD.PACK PO SCH (10:41)
[2021-12-02] MEDS: lisinopriL 20 MG TABLET PO SCH (10:41)
[2021-12-02 16:49] VITALS: BP 152/70; RESP 16; O2SAT 96
[2021-12-02 16:50] VITALS: PULSE 77; TEMP 98.1
[2021-12-02] MEDS ORDERED: Nystatin SUSP 5 ML UD.LIQ PO SCH (21:00)
[2021-12-03] MEDS ORDERED: Magic Mouthwash 10 ML UD Cup PO SCH (07:30)
== END 2021-12-02 18:43 | disposition other institution (70) ==
LOC: INPGRE 19:06 → EMEROOGRE 19:06 → INPGRE 21:58
PROVIDERS: ADMIT Family Medicine; ATTEND Family Medicine

== ENCOUNTER 2021-12-02 15:05 | Inpatient (IN) ==
[2021-12-02] MEDS: Ipratropium/Albuterol Neb 3 ML IH PRN (19:36)
[2021-12-02] MEDS: *HR* LORazepam 0.5 MG TABLET PO PRN (21:07)
[2021-12-02] MEDS: Acetaminophen 325 MG TABLET PO PRN (21:07)
[2021-12-03 06:01] LABS: Basophils % 0.2 %; Eosinophils % 0.2 %; Hemoglobin 11.9 g/dL (11.5-15.4); Immature Granulocytes % 1.1 % (0-4); Lymphocytes # 3.3 K/mcL (0.6-4.6); Lymphocytes % 18.5 %; Mean Corpuscular HGB Conc 33.1 g/dL (31.6-35.5); Mean Corpuscular Hemoglobin 30.7 pg (28.0-33.3); Mean Corpuscular Volume 92.8 fL (83.0-100.0); Mean Platelet Volume 8.3 fL (9.4-12.4); Monocytes # 1.3 K/mcL (0.0-1.3); Monocytes % 7.3 %; Neutrophils # 12.8 K/mcL (1.6-8.9); Platelet Count 394 K/mcL (140-400); Red Blood Count 3.88 M/mcL (3.82-4.97); Red Cell Distribution Width 13.8 % (11.5-14.5); Segmented Neutrophils % 72.7 %; White Blood Count 17.6 K/mcL (4.3-11.1)
[2021-12-03] MEDS: *HR* Enoxaparin 40 MG/0.4 ML SYRINGE SQ SCH (06:02)
[2021-12-03 06:28] LABS: BUN/Creatinine Ratio 41 (6-26); Blood Urea Nitrogen 20 mg/dL (8-23); Calcium 9.1 mg/dL (8.6-10.3); Carbon Dioxide 29 mEq/L (23-29); Chloride 96 mEq/L (98-107); Glucose 104 mg/dL (70-105); Osmolality,Calculated 271 (280-300); Potassium 3.9 mEq/L (3.5-5.1); Sodium 129 mEq/L (136-145); eGFR For African Americans > 60 (> 60); eGFR For Non-African Americans > 60 (> 60)
[2021-12-03] MEDS: Ipratropium/Albuterol Neb 3 ML IH PRN ×3 (06:43→20:36)
[2021-12-03] MEDS: *HR* LORazepam 0.5 MG TABLET PO PRN ×2 (08:18→22:26)
[2021-12-03] MEDS: lisinopriL 20 MG TABLET PO SCH (08:21)
[2021-12-03] MEDS: Aspirin 81 MG TAB.CHEW PO SCH (08:22)
[2021-12-03] MEDS: predniSONE 20 MG TABLET PO SCH (08:22)
[2021-12-03] MEDS: Multivit/Ca/Min/Fe/FA 1 TAB TABLET PO SCH (08:22)
[2021-12-03] MEDS: Acetaminophen 325 MG TABLET PO PRN (22:26)
[2021-12-04] MEDS: *HR* Enoxaparin 40 MG/0.4 ML SYRINGE SQ SCH (06:15)
[2021-12-04] MEDS: Ipratropium/Albuterol Neb 3 ML IH PRN ×2 (06:18→14:51)
[2021-12-04] MEDS: lisinopriL 20 MG TABLET PO SCH (08:55)
[2021-12-04] MEDS: predniSONE 20 MG TABLET PO SCH (08:55)
[2021-12-04] MEDS: Multivit/Ca/Min/Fe/FA 1 TAB TABLET PO SCH (08:55)
[2021-12-04] MEDS: Aspirin 81 MG TAB.CHEW PO SCH (08:55)
[2021-12-04] MEDS: Acetaminophen 325 MG TABLET PO PRN (08:55)
[2021-12-04] MEDS: *HR* LORazepam 0.5 MG TABLET PO PRN ×2 (08:56→21:35)
[2021-12-04] MEDS: Nystatin SUSP 5 ML UD.LIQ PO SCH ×3 (13:27→21:35)
[2021-12-04] MEDS: Magic Mouthwash 10 ML UD Cup PO SCH ×2 (13:27→18:18)
[2021-12-05] MEDS: Ipratropium/Albuterol Neb 3 ML IH PRN ×3 (02:13→21:11)
[2021-12-05] MEDS: *HR* Enoxaparin 40 MG/0.4 ML SYRINGE SQ SCH (06:36)
[2021-12-05] MEDS: Magic Mouthwash 10 ML UD Cup PO SCH ×3 (08:18→17:46)
[2021-12-05] MEDS: Acetaminophen 325 MG TABLET PO PRN ×2 (08:18→20:43)
[2021-12-05] MEDS: lisinopriL 20 MG TABLET PO SCH (08:18)
[2021-12-05] MEDS: Multivit/Ca/Min/Fe/FA 1 TAB TABLET PO SCH (08:18)
[2021-12-05] MEDS: Nystatin SUSP 5 ML UD.LIQ PO SCH ×4 (08:18→20:34)
[2021-12-05] MEDS: Aspirin 81 MG TAB.CHEW PO SCH (08:19)
[2021-12-05] MEDS: predniSONE 10 MG TABLET PO SCH (08:19)
[2021-12-05] MEDS: *HR* LORazepam 0.5 MG TABLET PO PRN ×2 (08:19→20:34)
[2021-12-06] MEDS: *HR* Enoxaparin 40 MG/0.4 ML SYRINGE SQ SCH (04:12)
[2021-12-06 05:12] LABS: Basophils # 0.1 K/mcL (0.0-0.2); Basophils % 0.4 %; Eosinophils # 0.3 K/mcL (0.0-0.6); Eosinophils % 1.8 %; Hematocrit 36.9 % (35.3-44.9); Hemoglobin 11.9 g/dL (11.5-15.4); Immature Granulocytes % 1.1 % (0-4); Lymphocytes # 3.9 K/mcL (0.6-4.6); Lymphocytes % 27.2 %; Mean Corpuscular HGB Conc 32.2 g/dL (31.6-35.5); Mean Corpuscular Hemoglobin 30.2 pg (28.0-33.3); Mean Corpuscular Volume 93.7 fL (83.0-100.0); Mean Platelet Volume 8.8 fL (9.4-12.4); Monocytes # 1.2 K/mcL (0.0-1.3); Monocytes % 8.1 %; Neutrophils # 8.8 K/mcL (1.6-8.9); Platelet Count 443 K/mcL (140-400); Red Blood Count 3.94 M/mcL (3.82-4.97); Red Cell Distribution Width 14.1 % (11.5-14.5); Segmented Neutrophils % 61.4 %; White Blood Count 14.4 K/mcL (4.3-11.1)
[2021-12-06 05:24] LABS: BUN/Creatinine Ratio 38 (6-26); Blood Urea Nitrogen 23 mg/dL (8-23); Calcium 9.3 mg/dL (8.6-10.3); Carbon Dioxide 31 mEq/L (23-29); Chloride 96 mEq/L (98-107); Glucose 76 mg/dL (70-105); Osmolality,Calculated 274 (280-300); Potassium 4.4 mEq/L (3.5-5.1); Sodium 131 mEq/L (136-145); eGFR For African Americans > 60 (> 60); eGFR For Non-African Americans > 60 (> 60)
[2021-12-06] MEDS: Ipratropium/Albuterol Neb 3 ML IH PRN ×2 (08:11→20:03)
[2021-12-06] MEDS: Aspirin 81 MG TAB.CHEW PO SCH (08:38)
[2021-12-06] MEDS: Magic Mouthwash 10 ML UD Cup PO SCH ×3 (08:38→17:19)
[2021-12-06] MEDS: predniSONE 10 MG TABLET PO SCH (08:38)
[2021-12-06] MEDS: *HR* LORazepam 0.5 MG TABLET PO PRN ×2 (08:38→22:24)
[2021-12-06] MEDS: Nystatin SUSP 5 ML UD.LIQ PO SCH ×4 (08:38→22:24)
[2021-12-06] MEDS: lisinopriL 20 MG TABLET PO SCH (08:38)
[2021-12-06] MEDS: Multivit/Ca/Min/Fe/FA 1 TAB TABLET PO SCH (08:38)
[2021-12-06] MEDS: Acetaminophen 325 MG TABLET PO PRN ×3 (11:31→22:44)
[2021-12-07] MEDS: *HR* Enoxaparin 40 MG/0.4 ML SYRINGE SQ SCH (06:16)
[2021-12-07] MEDS: Acetaminophen 325 MG TABLET PO PRN ×2 (06:16→17:00)
[2021-12-07] MEDS: Aspirin 81 MG TAB.CHEW PO SCH (08:48)
[2021-12-07] MEDS: *HR* LORazepam 0.5 MG TABLET PO PRN ×2 (08:48→20:15)
[2021-12-07] MEDS: Nystatin SUSP 5 ML UD.LIQ PO SCH ×4 (08:48→20:15)
[2021-12-07] MEDS: lisinopriL 20 MG TABLET PO SCH (08:48)
[2021-12-07] MEDS: Magic Mouthwash 10 ML UD Cup PO SCH ×3 (08:48→16:57)
[2021-12-07] MEDS: Multivit/Ca/Min/Fe/FA 1 TAB TABLET PO SCH (08:48)
[2021-12-07] MEDS: Ipratropium/Albuterol Neb 3 ML IH PRN ×2 (08:55→15:20)
[2021-12-08] MEDS: Ipratropium/Albuterol Neb 3 ML IH PRN ×2 (02:01→07:34)
[2021-12-08 02:04] VITALS: O2SAT 98
[2021-12-08 05:38] LABS: Prothrombin Time 10.7 Seconds (9.4-12.1)
[2021-12-08 05:41] LABS: Basophils # 0.1 K/mcL (0.0-0.2); Basophils % 0.5 %; Eosinophils # 0.3 K/mcL (0.0-0.6); Eosinophils % 1.9 %; Hematocrit 36.3 % (35.3-44.9); Hemoglobin 11.7 g/dL (11.5-15.4); Lymphocytes # 3.5 K/mcL (0.6-4.6); Lymphocytes % 19.6 %; Mean Corpuscular HGB Conc 32.2 g/dL (31.6-35.5); Mean Corpuscular Hemoglobin 30.5 pg (28.0-33.3); Mean Corpuscular Volume 94.5 fL (83.0-100.0); Mean Platelet Volume 8.8 fL (9.4-12.4); Monocytes # 1.5 K/mcL (0.0-1.3); Monocytes % 8.6 %; Platelet Count 448 K/mcL (140-400); Red Blood Count 3.84 M/mcL (3.82-4.97); Red Cell Distribution Width 14.3 % (11.5-14.5); Segmented Neutrophils % 68.4 %; White Blood Count 17.9 K/mcL (4.3-11.1)
[2021-12-08 05:43] LABS: Neutrophils # 12.2 K/mcL (1.6-8.9)
[2021-12-08 05:48] LABS: BUN/Creatinine Ratio 34 (6-26); Blood Urea Nitrogen 20 mg/dL (8-23); Calcium 8.9 mg/dL (8.6-10.3); Carbon Dioxide 27 mEq/L (23-29); Chloride 96 mEq/L (98-107); Glucose 104 mg/dL (70-105); Osmolality,Calculated 273 (280-300); Potassium 4.4 mEq/L (3.5-5.1); Sodium 130 mEq/L (136-145); eGFR For African Americans > 60 (> 60); eGFR For Non-African Americans > 60 (> 60)
[2021-12-08] MEDS: Multivit/Ca/Min/Fe/FA 1 TAB TABLET PO SCH (08:13)
[2021-12-08] MEDS: lisinopriL 20 MG TABLET PO SCH (08:14)
[2021-12-08] MEDS: *HR* LORazepam 0.5 MG TABLET PO PRN (08:14)
[2021-12-08] MEDS: Nystatin SUSP 5 ML UD.LIQ PO SCH (08:15)
[2021-12-08] MEDS: Magic Mouthwash 10 ML UD Cup PO SCH ×2 (08:15→11:27)
[2021-12-08] MEDS: Aspirin 81 MG TAB.CHEW PO SCH (08:15)
[2021-12-08 08:22] VITALS: BP 119/60; PULSE 74; RESP 17; TEMP 98
[2021-12-08] MEDS ORDERED: Ketorolac 30 MG/ML VIAL IVP ONE (11:20)
== END 2021-12-08 12:35 | disposition home or self-care (01) ==
LOC: INPGRE 18:50
PROVIDERS: ADMIT Family Medicine; ATTEND Family Medicine